=== PATIENT | male | born 1970 | race African-American/Black ===

== ENCOUNTER 2024-06-20 14:38 | Outpatient (OUT) | payer OTHER, SELFPAY ==
--- NOTE | 2024-06-20 14:40 | ECG_ITS ---
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
--- NOTE | 2024-06-20 15:03 | P.GSHP_ITS ---
History of Present Illness History of Present Illness Chief complaint: phimosis Narrative: Patient presents for presurgical testing accompanied by his partner. The patient reports a several month history of phimosis. He denies urinary complaints at this time. Review of Systems ROS Narrative REVIEW OF SYSTEMS: Negative except as stated in HPI, ten or more systems reviewed. 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 - Other specified disorders of the skin and subcutaneous tissue (ICD-1 0) Syphilis ?A53.9 - Syphilis, unspecified (ICD-10) Chronic renal disease ?N18.9 - Chronic kidney disease, unspecified (ICD-10) Phimosis ?N47.1 - Phimosis (ICD-10) Surgical History (Updated 06/20/24 @ 13:59 by Monae Rausch NP) H/O colonoscopy ?Z98.890 - Other specified postprocedural states (ICD-10) Family History (Updated 06/20/24 @ 14:52 by Monae Rausch NP) Other Family history of breast cancer Family history of hypertension Social History (Updated 06/20/24 @ 14:50 by Monae Rausch NP) Within the past year, how often did you have a drink containing alcohol: 2-3 times a week Smoking status: Never smoker Non-prescribed substance use: cannabis (any form) Previous occupational history: [employer] Highest level of school completed/degree received: high school graduate Meds Home Medications and Allergies Home Medications ?Medication ?Instructions ?Recorded ?Confirmed ?Type dupilumab 300 mg/2 mL subcutaneous 300 mg subcut .[id number] 06/20/24 06/20/24 History pen injector (Dupixent) triamcinolone acetonide 0.1 % 1 applic topical BID 06/20/24 06/20/24 History topical cream Allergies Allergy/AdvReac Type Severity Reaction Status Date / Time amoxicillin Allergy Rash Verified 06/20/24 14:47 Exam Narrative Exam Narrative: Constitutional: Awake, alert, comfortable, well-appearing, nontoxic, interactive, vital signs as charted Head: Normocephalic, atraumatic Neck: Supple, normal appearance, normal range of motion, no meningeal signs, no lymphadenopathy Respiratory: No respiratory distress, breath sounds clear Cardiovascular: Regular rate and rhythm, strong and regular heart tones Abdomen: Nontender, normal bowel sounds, soft, no CVA tenderness Musculoskeletal: Normal gait, no swelling or edema Skin: No rashes or induration, no lesions, only visible skin inspected Neuro: No neurological deficits, normal sensation Psychiatric: Oriented ?3, normal affect Assessment and Plan Assessment and Plan (1) Phimosis: Plan Circumcision scheduled with Dr. Melgoza July 05, 2024.
[2024-06-20 15:09] LABS: Basophils Absolute Auto 0.1 10^3/uL (0.0-0.1); Basophils Percent Auto 1.2 % (0.2-2.0); Eosinophils Absolute Auto 0.2 10^3/uL (0.0-0.7); Eosinophils Percent Auto 3.2 % (0.9-7.0); Hematocrit 39.7 % (42.0-54.0); Hemoglobin 13.4 g/dL (14.0-18.0); Immature Granulocytes Abs Auto 0.02 10^3/uL (0.00-0.03); Immature Granulocytes Pct Auto 0.3 % (0.0-0.5); Lymphocytes Absolute Auto 3.3 10^3/uL (1.2-3.8); Lymphocytes Percent Auto 46.8 % (20.5-60.0); Mean Corpuscular HGB Conc 33.8 g/dL (29.9-35.2); Mean Corpuscular Hemoglobin 31.8 pg (25.9-34.0); Mean Corpuscular Volume 94.3 fL (80.0-94.0); Mean Platelet Volume 8.6 fL (9.5-13.5); Monocytes Absolute Auto 0.8 10^3/uL (0.3-0.8); Neutrophils Absolute Auto 2.5 10^3/uL (1.4-6.5); Neutrophils Percent Auto 36.5 % (43.0-75.0); Platelet Count 323 10^3/uL (150-450); Red Blood Count 4.21 10^6/uL (4.70-6.10); Red Cell Distribution Width 12.8 % (11.0-15.0); White Blood Count 6.9 10^3/uL (4.0-11.0)
[2024-06-20 15:20] LABS: Anion Gap 8.6; Calcium 9.4 mg/dL (8.5-10.1); Carbon Dioxide 29.5 mmol/L (21.0-32.0); Chloride 106 mmol/L (98-107); Estimated GFR (African America 50 (>=60 mL/min/1.73m^2); Estimated GFR (Non-African Ame 41 (>=60 mL/min/1.73m^2); Glucose 91 mg/dL (74-106); Potassium 4.1 mmol/L (3.5-5.1); Sodium 140 mmol/L (136-145)
[2024-06-20 15:34] LABS: INR 0.97; Partial Thromboplastin Time 28.5 sec (22.3-36.2); Prothrombin Time 10.3 sec (9.0-11.6)
== END 2024-06-20 14:39 | disposition home or self-care (01) ==
LOC: PST 14:38
PROVIDERS: Visit Provider Urology
DX: Z01.810 Encounter for preprocedural cardiovascular examination (principal); Z01.812 Encounter for preprocedural laboratory examination; Z01.818 Encounter for other preprocedural examination; N47.1 Phimosis
CPT/HCPCS: 80048; 85025; 85610; 85730; 93005; G0463

== ENCOUNTER 2024-07-05 10:28 | Day surgery (SDC) | payer OTHER, SELFPAY ==
[2024-06-20 15:00] VITALS: BP 128/70; PULSE 66; TEMP 36.3; O2SAT 96; BMI 29.9
[2024-07-05] VITALS (20 sets, daily range): BP systolic 115–149; BP diastolic 66–92; PULSE 73–97; TEMP 36.2–36.3; O2SAT 94–100
--- OUTSIDE RECORDS SUMMARY | 2024-07-05 10:38 | XMS_ITS | CCD ---
Author Organization [facility] Care Team Providers Care Head Of Stock Name Role Phone Cori Loera Primary Care Provider Tashi Cardoso Attending Unavailable Dilma BENAVIDEZ Primary Care Physician [phone] Margie Cori Prieto Primary Care Provider [phone] Margie Cori Prieto Primary Care Provider [phone] DILMA BENAVIDEZ Referring Unavailable MARGIE CORI Prieto Primary Care Unavailable KAMADANA, JOANNE Attending Unavailable KAMADANA, JOANNE Referring Unavailable MARGIE CORI Prieto Primary Care Unavailable KAMADANA, JOANNE Attending Unavailable KAMADANA, JOANNE Referring Unavailable MARGIE, CORI Prieto Primary Care Unavailable Dilma BENAVIDEZ Primary Care Physician Khurram MELGOZA Attending Unavailable Jensen Campos Attending Unavailable Khurram MELGOZA Attending Unavailable Lashawn Owens Attending Unavailable Dilma BENAVIDEZ Attending Unavailable Khurram MELGOZA Attending Unavailable Khurram MELGOZA Attending Unavailable Unavailable Primary Care Provider UnavailVIDHI Lara Attending Unavailable DILMA BENAVIDEZ Referring Unavailable VIDHI ARAUJO Attending Unavailable VIDHI ARAUJO Attending Unavailable TOM MONTALVO Attending Unavailable VIDHI ARAUJO A Attending Unavailable VIDHI ARAUJO Attending Unavailable Allergies Allergy Classification Reported Allergen(s) Allergy Type Date of Onset Reaction(s) Facility (2 sources) No Known Medication Allergies; Translations: [No Known Medication Allergies] Propensity to adverse reactions (disorder) [facility] Repository (8 sources) Amoxicillin; Translations: [amoxicillin] Drug Allergy 4 Eruption of skin (disorder), Rash [facility] Medications Current Medications Medication Drug Class(es) Dates Sig (Normalized) Sig (Original) doxycycline monohydrate 100 mg oral capsule (3 sources) Tetracycline-clas s Drug Start: 09-12-2023 take 1 capsule by mouth twice daily doxycycline (Monodox) 100 MG capsule Indications: Impetigo Take 1 capsule, by mouth bid, x 10 days 20 capsule 09/12/2023 Active 2 ml dupilumab 150 mg/ml auto-injector (7 sources) Interleukin-4 Receptor alpha Antagonist Start: 11-21-2023 Dupixent Pre-filled Pen 300 mg/2 mL subcutaneous solution Refills(s) 0 Start Date: 11/21/23 Status: Ordered Start: 09-20-2023 Dupixent 300 M G/2ML injection Indications: Atopic Dermatitis Inject 300 mg (contents of ONE pen) under the skin every 2 weeks 2 pen 11 01/09/2024 Active levoFLOXacin 500 mg oral tablet (2 sources) Quinolone Antimicrobial Start: 07-06-2022 End: 07-16-2022 take 1 tablet by mouth every twenty-four hours levofloxacin 500 mg Tab 500 mg = 1 tab(s), Oral, q24hr, X 10 day(s), # 10 tab(s), Refills(s) 0, Pharmacy: [facility] #[id number], 185, cm, 07/06/22 17:44:00 EST, Height/Length Dosing, 90.3, kg, 07/06/22 17:44:00 EST, Weight Dosing Start Date: 07/06/22 Stop Date: 07/16/22 Status: Ordered magnesium sulfate 225 MG / potassium chloride 188 MG / sodium sulfate 1479 MG Oral Tablet [Sutab] (1 source) Start: 01-10-2023 take 1 tablet by mouth once Sutab oral tablet See Instructions, 1 EA, Refill(s) 0, Please follow instructions per packaging and physician's handout, [facility], 180, cm, 01/10/23 15:30:00 EDT, Height/Length Dosing, 97.8, kg, 01/10/23 15:30:00 EDT, Weight Dosing Start Date: 01/10/23 Status: Ordered methylPREDNISolone 4 mg oral tablet (1 source) Corticosteroid Start: 07-27-2023 End: 08-02-2023 Medrol 4 mg Tab = 1 packet(s), Oral, As Directed, as directed on package labeling, X 6 day(s), # 21 tab(s), Refills(s) 0, Pharmacy: [facility] #[id number], 180, cm, 07/27/23 19:43:00 EST, Height/Length Dosing, 97.1, kg, 07/27/23 19:43:00 EST, Weight Dosing Start Date: 07/27/23 Stop Date: 08/02/23 Status: Ordered mupirocin 0.02 mg/mg topical ointment (2 sources) RNA Synthetase Inhibitor Antibacterial Start: 07-26-2023 End: 08-02-2023 mupirocin Top 2% Oint 1 montez, Topical, BID for 7 day(s), 15 gm, Refill(s) 0, [facility] #[id number], 180, cm, 07/26/23 14:11:00 EST, Height/Length Dosing, 97.1, kg, 07/26/23 14:11:00 EST, Weight Dosing Start Date: 07/26/23 Stop Date: 08/02/23 Status: Ordered predniSONE 20 mg oral tablet (1 source) Start: 08-08-2023 predniSONE 20 mg Tab See Instructions, 2 tabs daily x 10 days, then 1 tab daily x 10 days with food or milk, # 30 tab(s), Refills(s) 0, Pharmacy: [facility] #[id number], 180, cm, 08/08/23 16:35:00 EST, Height/Length Dosing, 98.4, kg, 08/08/23 16:35:00 EST, Weight Dosing Start Date: 08/08/23 Status: Ordered tacrolimus 0.001 mg/mg topical ointment (3 sources) Calcineurin Inhibitor Immunosuppressant Start: 09-12-2023 tacrolimus (Protopic) 0.1 % ointment Indications: Other atopic dermatitis Apply to affected areas, twice a day when flared, 30 day supply 30 g 3 09/12/2023 Active terbinafine 250 mg oral tablet (2 sources) Allylamine Antifungal Start: 07-06-2022 take 1 tablet by mouth once daily terbinafine 250 mg Tab 250 mg = 1 tab(s), Oral, Daily, Refills(s) 0 Start Date: 07/06/22 Status: Ordered triamcinolone acetonide 1 mg/ml topical cream (10 sources) Corticosteroid Start: 09-02-2023 triamcinolone (Kenalog) 0.1 % cream Indications: Other atopic dermatitis Apply to affected areas, up to twice a day when flared, do not use one the face, groin, or underarms, 30 day supply 454 g 11 01/09/2024 Active Start: 08-08-2023 triamcinolone Top 0.1% Crm 15 gram 1 montez, Topical, BID, 60 gram, Refill(s) 1, [facility] #[id number], 180, cm, 08/08/23 16:35:00 EST, Height/Length Dosing, 98.4, kg, 08/08/23 16:35:00 EST, Weight Dosing Start Date: 08/08/23 Status: Ordered Start: 07-26-2023 triamcinolone Top 0.1% Crm 15 gram 1 montez, Topical, TID, 60 gram, Refill(s) 0, [facility] #[id number], 180, cm, 07/26/23 14:11:00 EST, Height/Length Dosing, 97.1, kg, 07/26/23 14:11:00 EST, Weight Dosing Start Date: 07/26/23 Status: Ordered Problems Active Problems Problem Classification Problem Date Documented Date Episodic/Chronic Allergic reactions (2 sources) Atopic dermatitis; Translations: [Other atopic dermatitis] 05-10-2024 Chronic Allergic reactions (2 sources) Vesicular eczema 08-08-2023 Episodic Chronic kidney disease (19 sources) Chronic kidney disease stage 3A ; Translations: [Chronic kidney disease, stage 3a] Onset: 07-04-2022 Chronic Chronic kidney disease (3 sources) Chronic kidney disease; Translations: [Chronic kidney disease, stage 3a] Onset: 01-20-2023 Mycoses (16 sources) Tinea pedis; Translations: [Tinea pedis] Onset: 07-04-2022 Episodic Other infections; including parasitic (1 source) H/O: infectious disease; Translations: [Personal history of other infectious and parasitic diseases] Onset: 11-17-2022 Episodic Other infections; including parasitic (8 sources) History of syphilis 11-17-2022 Episodic Other inflammatory condition of skin (10 sources) 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 Other male genital disorders (4 sources) Congenital phimosis 05-23-2023 Episodic Other male genital disorders (2 sources) Phimosis; Translations: [Phimosis] Onset: 11-21-2023 Episodic Other nutritional; endocrine; and metabolic disorders (1 source) Obese class I; Translations: [Body mass index (BMI) 30.0-30.9, adult] Onset: 08-08-2023 Chronic Other nutritional; endocrine; and metabolic disorders (1 source) Obesity; Translations: [Other obesity due to excess calories] Onset: 08-08-2023 Chronic Other nutritional; endocrine; and metabolic disorders (2 sources) Body mass index 30+ - obesity 08-08-2023 Chronic Other nutritional; endocrine; and metabolic disorders (2 sources) Obesity caused by energy imbalance 08-08-2023 Chronic Other nutritional; endocrine; and metabolic disorders (18 sources) Overweight; Translations: [Overweight] Onset: 07-04-2022 Episodic Other nutritional; endocrine; and metabolic disorders (16 sources) Overweight in adulthood with body mass index of 25 or more but less than 30; Translations: [Body mass index (BMI) 26.0-26.9, adult] Onset: 07-06-2022 Episodic Other screening for suspected conditions (not mental disorders or infectious disease) (4 sources) Screening for malignant neoplasm of colon done; Translations: [Encounter for screening for malignant neoplasm of colon] Onset: 11-17-2022 Episodic Other skin disorders (4 sources) Disorder of skin; Translations: [Other specified disorders of the skin and subcutaneous tissue] Onset: 07-23-2022 Episodic Other skin disorders (1 source) Callosity; Translations: [Corns and callosities] Onset: 11-19-2022 Episodic Other skin disorders (8 sources) Elba of toe 11-19-2022 Episodic Other skin disorders (2 sources) Podopompholyx; Translations: [Dyshidrosis [pompholyx]] Onset: 07-26-2023 Episodic Other skin disorders (2 sources) Eruption; Translations: [Rash and other nonspecific skin eruption] Onset: 07-27-2023 Episodic Sexually transmitted infections (not HIV or hepatitis) (2 sources) Latent early syphilis; 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 Unclassified (16 sources) Patient encounter status 11-17-2022 Past or Other Problems Problem Classification Problem Date Documented Date Episodic/Chronic Anal and rectal conditions (6 sources) Anal fissure; Translations: [Anal fissure, unspecified] Onset: 11-19-2022 Episodic Immunizations and screening for infectious disease (6 sources) Exposure to sexually transmissible disorder; Translations: [Contact with and (suspected) exposure to infections with a predominantly sexual mode of transmission] Onset: 07-23-2022 Episodic Results Test Name Value Interpretation Reference Range Facil ity Consent for Procedure/Surger yon 11-22-2023 Consent for Procedure/Surgery [id number] CF#1.00TIFF [facility] Formson 11-22-2023 Forms [id number] 9C#1.00TIFF Normal [facility] Screenson 11-22-2023 Screens [id number] 71#1.00TIFF [facility] Ambulatory Visit Summaryon 0 11-21-2023 Ambulatory Visit Summary GABRIELA FUENTES :1970 Visit Date:11/21/2023 Ambulatory Visit Instructions Your Diagnosis Phimosis Prostate cancer screening Your Care Team Attending Physician - Khurram MELGOZA MD Primary Care Physician - Dilma BENAVIDEZ MD This Is Your Medications List Contact prescribing physician if questions or concerns dupilumab (Dupixent Pre-filled Pen 300 mg/2 mL subcutaneous solution) triamcinolone topical (triamcinolone Top 0.1% Crm 15 gram) Procedures Performed Colonoscopy (02/25/2023). Discharge Vitals Heart Rate (Peripheral) 64 Respiratory Rate 16 Blood Pressure 132/76 Height 183 cm Height 72 in Weight 97.8 kg Weight 215.16 lb BMI 29.2 What to do next You Need to Schedule the Following Appointments Follow Up with DENIZ DODSON, Khurram Adams, URL When: Where: [facility] [address] [place] [phone]- [phone] Medications What How Much When Instructions Unchanged dupilumab (Dupixent Pre-filled Pen 300 mg/ 2 mL subcutaneous solution) Contact prescribing physician if questions or concerns Unchanged triamcinolone topical (triamcinolone Top 0.1% Crm 15 gram) 1 Application Topical 2 times a day Contact prescribing physician if questions or concerns Allergies amoxicillin (Rash) Problems Ongoing - Any problem that you are currently receiving treatment for. 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 Overweight Patient Survey You may receive a survey via text or e-mail asking about your office visit. Please share your experience with us by completing your survey. We appreciate your feedback and thank you for choosing us for your care. Education Materials Circumcision Information Male infants are born with a fold of skin that covers the head of the penis (foreskin). This fold of skin is often removed shortly after with a surgery that is called circumcision. A circumcision may be done by a health care provider who is involved in care or by a specialist who cares for the urinary tract (urologist). Circumcisions may also be done in non-medical settings for rastafarian or cultural reasons. Who should be circumcised? The decision to leave the foreskin on or to have it removed is a personal one. It is often based on rastafarian, social, or cultural beliefs. Circumcision is most often done in the first few days of life, but it may also be done later in life. In general: ? All healthy boys with a normal penis formation can be circumcised in the first few days after . ? Boys who are born early (prematurely) or who are ill should not be circumcised until they are older and stronger. ? Boys with certain deformities of the penis or deformities of the opening of the penis (urethra) should not be circumcised. How is circumcision done? ? The penis and the area around it are cleansed well. ? An injection may be given to numb the area. A numbing cream may be applied to the area. ? A special clamp or ring is attached to the penis and used to remove the foreskin. ? The area is then cleansed well again. ? Medicine and gauze are applied to it. What are the benefits of circumcision? When the foreskin is removed: ? The head of the penis is easier to wash. This lowers the risk for odors, swelling, and infection. ? Some men are less likely to: ? Carry the virus that causes genital warts (human papillomavirus or HPV). ? Contract human immunodeficiency virus (HIV). ? Develop cancer of the penis. ? Get urinary infections. ? Develop inflammation of the penis. What are the risks of circumcision? Circumcision is a safe procedure. However, problems may occur, including: ? Infection. ? Bleeding. ? Removal of too much or too little foreskin. This affects the appearance of the penis. ? Irritation and narrowing of the urinary opening. This is usually short term. ? Scarring of the penis. This may affect the way the penis functions. Where to find more information ? [employer] ([employer]), Male Circumcision: [email or web address].org Summary ? Male infants are born with a fold of skin that covers the head of the penis. This fold of skin is often removed shortly after with a surgery that is called circumcision. ? When the foreskin is removed, the head of the penis is easier to wash and keep clean. ? Some men who are circumcised are less likely to carry viruses, get urinary infections, or develop cancer of the penis. ? Circumcision is a safe procedure. However, (more content not included)... Normal [facility] Patient Educationon 11-21-19 Patient Education Urology Circumcision Information Male infants are born with a fold of skin that covers the head of the penis (foreskin). This fold of skin is often removed shortly after with a surgery that is called circumcision. A circumcision may be done by a health care provider who is involved in care or by a specialist who cares for the urinary tract (urologist). Circumcisions may also be done in non-medical settings for rastafarian or cultural reasons. Who should be circumcised? The decision to leave the foreskin on or to have it removed is a personal one. It is often based on rastafarian, social, or cultural beliefs. Circumcision is most often done in the first few days of life, but it may also be done later in life. In general: ? All healthy boys with a normal penis formation can be circumcised in the first few days after . ? Boys who are born early (prematurely) or who are ill should not be circumcised until they are older and stronger. ? Boys with certain deformities of the penis or deformities of the opening of the penis (urethra) should not be circumcised. How is circumcision done? ? The penis and the area around it are cleansed well. ? An injection may be given to numb the area. A numbing cream may be applied to the area. ? A special clamp or ring is attached to the penis and used to remove the foreskin. ? The area is then cleansed well again. ? Medicine and gauze are applied to it. What are the benefits of circumcision? When the foreskin is removed: ? The head of the penis is easier to wash. This lowers the risk for odors, swelling, and infection. ? Some men are less likely to: ? Carry the virus that causes genital warts (human papillomavirus or HPV). ? Contract human immunodeficiency virus (HIV). ? Develop cancer of the penis. ? Get urinary infections. ? Develop inflammation of the penis. What are the risks of circumcision? Circumcision is a safe procedure. However, problems may occur, including: ? Infection. ? Bleeding. ? Removal of too much or too little foreskin. This affects the appearance of the penis. ? Irritation and narrowing of the urinary opening. This is usually short term. ? Scarring of the penis. This may affect the way the penis functions. Where to find more information ? [employer] ([employer]OG), [place] Male Circumcision: [email or web address].org Summary ? Male infants are born with a fold of skin that covers the head of the penis. This fold of skin is often removed shortly after with a surgery that is called circumcision. ? When the foreskin is removed, the head of the penis is easier to wash and keep clean. ? Some men who are circumcised are less likely to carry viruses, get urinary infections, or develop cancer of the penis. ? Circumcision is a safe procedure. However, problems may occur, including infection, bleeding, scarring, and irritation and narrowing of the opening of the penis. This information is not intended to replace advice given to you by your health care provider. Make sure you discuss any questions you have with your health care provider. Document Revised: 07/05/2022 Document Reviewed: 07/05/2022 [employer] Patient Education ? 2022 [email or web address] Normal [facility] Consultation Noteon 09-02-19 24 Consultation Note [id number] 35#1.00TIFF Normal [facility] Physician Referralon 024 Physician Referral [id number] 126#1.00TIFF [facility] Ambulatory Visit Summaryon 0 08-08-2023 Ambulatory Visit Summary GABRIELA FUENTES :1970 Visit Date:08/08/2023 Ambulatory Visit Instructions Your Diagnosis Papulosquamous dermatosis Dyshidrotic eczema Chronic renal impairment, stage 3a Class 1 obesity due to excess calories in adult BMI 30.0-30.9,adult Your Care Team Attending Physician - Dilma BENAVIDEZ MD Primary Care Physician - Dilma BENAVIDEZ MD This Is Your Medications List predniSONE (predniSONE 20 mg Tab) triamcinolone topical (triamcinolone Top 0.1% Crm 15 gram) Procedures Performed Colonoscopy (02/25/2023). Discharge Vitals Heart Rate (Peripheral) 83 Respiratory Rate 16 Blood Pressure 134/84 Height 180 cm Height 71 in Weight 98.4 kg Weight 216.48 lb BMI 30.37 What to do next Scheduled Follow-Up Appointments Tuesday 11:00 AM EDT With: DENIZ DODSON, Khurram Adams Where: [facility] Normal Dyshidrotic eczema\.br\ Medications\.br\ What How Much When Instructions\.br \ New predniSONE (predniSONE 20 mg Tab) See instructions 2 tabs daily x 10 days, then 1 tab daily x 10 days with food or milk Pickup at [facility] #[id number]\.br\ Changed triamcinolone topical (triamcinolone Top 0.1% Crm 15 gram) 1 Application Topical 2 times a day Pickup at [facility] #[id number]\.br\ Pharmacy Information\.br\ [id number]: [address] [id number] [phone]\.br\ Medications and Immunizations Administered\.br \ Not Given\.br\ influenza virus vaccine, inactivated, Postpone due to refusal\.br\ Allergies\.br\ amoxicillin (Rash)\.br\ Problems\.br\ Ongoing - Any problem that you are currently receiving treatment for.\.br\ BMI 30.0-30.9,adult\ .br\ Chronic renal impairment, stage 3a\.br\ Class 1 obesity due to excess calories in adult\.br\ Colon cancer screening\.br\ Congenital phimosis of penis\.br\ Elba of toe\.br\ Dyshidrotic eczema\.br\ History of syphilis\.br\ Papulosquamous dermatosis\.br\ Prostate cancer screening\.br\ Smoker\.br\ Tinea pedis of right foot\.br\ Historical - Any problem that you are no longer receiving treatment for.\.br\ Overweight\.br\ Patient Survey\.br\ You may receive a survey via text or e-mail asking about your office visit. Please share your experience with us by completing your survey. We appreciate your feedback and thank you for choosing us for your care.\.br\ Education Materials\.br\ Atopic Dermatitis\.br\ Atopic dermatitis is a skin disorder that causes inflammation of the skin. It is marked by a red rash and itchy, dry, scaly skin. It is the most common type of eczema. Eczema is a group of skin conditions that cause the skin to become rough and swollen. This condition is generally worse during the cooler winter months and often improves during the warm summer months.\.br\ Atopic dermatitis usually starts showing signs in infancy and can last through adulthood. This condition cannot be passed from one person to another (is not contagious). Atopic dermatitis may not always be present, but when it is, it is called a flare-up.\.br\ What are the causes?\.br\ The exact cause of this condition is not known. Flare-ups may be triggered by:\.br\ ? \.br\ Coming in contact with something that you are sensitive or allergic to (allergen).\.br\ ? \.br\ Stress.\.br\ ? \.br\ Certain foods.\.br\ ? \.br\ Extremely hot or cold weather.\.br\ ? \.br\ Harsh chemicals and soaps.\.br\ ? \.br\ Dry air.\.br\ ? \.br\ Chlorine.\.br\ What increases the risk?\.br\ This condition is more likely to develop in people who have a personal or family history of:\.br\ ? \.br\ Eczema.\.br\ ? \.br\ Allergies.\.br\ ? \.br\ Asthma.\.br\ ? \.br\ Hay fever.\.br\ What are the signs or symptoms?\.br\ \.br\ Symptoms of this condition include:\.br\ ? \.br\ Dry, scaly skin.\.br\ ? \.br\ Red, itchy rash.\.br\ ? \.br\ Itchiness, which can be severe. This may occur before the skin rash. This can make sleeping difficult.\.br\ ? \.br\ Skin thickening and cracking that can occur over time.\.br\ How is this diagnosed?\.br\ This condition is diagnosed based on:\.br\ ? \.br\ Your symptoms.\.br\ ? \.br\ Your medical history.\.br\ ? \.br\ A physical exam.\.br\ How is this treated?\.br\ There is no cure for this condition, but symptoms can usually be controlled. Treatment focuses on:\.br\ ? \.br\ Controlling the itchiness and scratching. You may be given medicines, such as antihistamines or steroid creams.\.br\ ? \.br\ Limiting exposure to allergens.\.br\ ? \.br\ Recognizing situations that cause stress and developing a plan to manage stress.\.br\ If your atopic dermatitis does not get better with medicines, or if it is all over your body (widespread), a treatment using a specific type of light (phototherapy) may be used.\.br\ Follow these instructions at home:\.br\ Skin care\.br\ \.br\ ? \.br\ Keep your skin well moisturized. Doing this seals in moisture and helps to prevent dryness.\.br\ ? \.br\ Use unscented lotions that have petroleum in them.\.br\ ? \.br\ Avoid lotions that contain alcohol or water. They can dry the skin.\.br\ ? \.br\ Keep baths or showers short (less than 5 minutes) in warm water. Do not use hot water.\.br\ ? \.br\ Use mild, unscented cleansers for bathing. Avoid soap and bubble bath.\.br\ ? \.br\ Apply a moisturizer to your skin right after a bath or shower.\.br\ ? \.br\ Do not apply anything to your skin without checking with your health care provider.\.br\ General instructions\.br \ ? \.br\ Take or apply [id number] and prescription medicines only as told by your health care provider.\.br\ ? \.br\ Dress in clothes made of cotton or cotton blends. Dress lightly because heat increases itchiness.\.br\ ? \.br\ When washing your clothes, rinse your clothes twice so all of the soap is removed.\.br\ ? \.br\ Avoid any triggers that can cause a flare-up.\.br\ ? \.br\ Keep your fingernails cut short.\.br\ ? \.br\ Avoid scratching. Scratching makes the rash and itchiness worse. A break in the skin from scratching could result in a skin infection (impetigo).\.br\ ? \.br\ Do not be around people who have cold sores or fever blisters. If you get the infection, it may cause your atopic dermatitis to worsen.\.br\ ? \.br\ Keep all follow-up visits. This is important.\.br\ Contact a health care provider if:\.br\ ? \.br\ Your itchiness interferes with sleep.\.br\ ? \.br\ Your rash gets worse or is not better within one week of starting treatment.\.br\ ? \.br\ You have a fever.\.br\ ? \.br\ You have a rash flare-up after having contact with someone who has cold sores or fever blisters.\.br\ Get help right away if:\.br\ ? \.br\ You develop pus or soft yellow scabs in the rash area.\.br\ Summary\.br\ ? \.br\ Atopic dermatitis causes a red rash and itchy, dry, scaly skin.\.br\ ? \.br\ Treatment focuses on controlling the itchiness and scratching, limiting exposure to things that you are sensitive or allergic to (allergens), recognizing situations that cause stress, and developing a plan to manage stress.\.br\ ? \.br\ Keep your skin well moisturized.\.br \ ? \.br\ Keep baths or showers shorter than 5 minutes and use warm water. Do not use hot water.\.br\ This information is not intended to replace advice given to you by your health care provider. Make sure you discuss any questions you have with your health care provider.\.br\ Document Revised: 04/13/2021 Document Reviewed: 04/13/2021 [email or web address] Patient Education ? 2022 [email or web address].br\ \.br\ [facility] Family Medicine Office/Clini c Noteon 08-08-2023 Family Medicine Office/Clinic Note Chief Complaint pt presents today with SO cont c/o painful raised blisters on bilat hand, swelling of hands, treated recently with a course of steroids, needs tetanus History of Present Illness The patient is a 52-year-old male patient here for complaints of rash. He is accompanied by his significant other. Had recently been seen in the office for suspected severe dyshidrotic eczema. He was then seen in the emergency room after having an initial improvement and was found to have persistent rash and even worsening full body eczematous type change. Hands are burning despite completion of prednisone. Did review the ER reports. Repeat syphilis testing because of history of this and RPR is negative as expected. Had previously been treated appropriately in the distant past. His feet were bothering him when he was seen a year ago. He was placed on steroid pack by Lashawn, which improved his symptoms. His hands were healing until the last pill on Tuesday. He took the last pill on Tuesday, and his rash started coming on yesterday. He denies any itching, but the blisters feel like his hands are on fire. He has bumps all over his body. He wears different kinds of gloves at work. The gloves are made of rubber and polyethylene. The material on the back and rubber touch in the palm are skin . He denies any burning on the dorsum.. He has not seen a audio specialist before. He is not in any type of chemicals at work. His gloves do not get wet from anything, but he sweats. His whole back broke out in bumps since use of prednisone.. He did not have bad acne as a child. Patient had fairly persistent renal insufficiency and was sent for consultation last spring. Found to be stage IIIa and they recommended a follow-up 1 year he has not scheduled that yet. Review of Systems PHQ Score Initial Depression Screen Score: 2 SCORE See HPI otherwise negative Physical Exam Vitals & Measurements HR: 83(Peripheral) RR: 16 BP: 134/84 SpO2: 96% HT: 71 in HT: 180 cm WT: 98.4 kg WT: 216.48 lb BMI: 30.37 He is well developed, in no acute distress, well hydrated. His oropharynx is pink and moist. Adequate [place] dentition. No visible lesions. Conjunctivae clear. No scleral icterus. Without adenopathy. Auscultation of lungs clear bilaterally. Regular rate and rhythm. No murmur, gallop, or rub. Abdomen: Overweight, nontender. Hyperactive bowel sounds without organomegaly. Well-developed. His integument is black skin tones. He does have acne-like lesions covering the majority of the trunk in a very broad distribution. No significant pustules or signs of secondary infection. His hands shows significant papulosquamous pustules and tenderness all over the palmar surfaces including the sides of the finger. The dorsum of the hands are very dry, eczematous. Cooperative. 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 Certainly appears to be dyshidrotic eczema which I think may require a systemic medication such as Dupixent. I have made a dermatology referral asking that in the meantime they utilize triamcinolone topically twice daily and will use prednisone over a 20-day course in hopes of improving his overall rash better. Understands side effects with the steroids include reflux, elevated blood pressure insomnia. Ordered: [facility] External Ambulatory Referral 2. Dyshidrotic eczema (L30.1: Dyshidrosis [pompholyx]) Some concern that the prednisone caused almost an acneform rash on the trunk. Unfortunately will give 1 more round of prednisone in hopes of settling down the rash on the hands but understands this may worsen the overall rash on the trunk. Ordered: [facility] External Ambulatory Referral 3. Chronic renal impairment, stage 3a (N18.31: Chronic kidney disease, stage 3a) Very important maintain fluid hydration avoid nephrotoxic substances and suggest that they really connect with nephrology for spring follow-up. Phone number and consultative letter provided to his significant other and they will make the call 4. Class 1 obesity due to excess calories in adult (E66.09: Other obesity due to excess calories) The standard range for ages 18 and older is >=18.5 and < 25 kg/m2. Your BMI today was above this range, this falls in the overweight to obese category and there are medical benefits to weight loss. We can offer counselling, referral, and/or medical support in addressing this problem. Your BMI and weight management will be followed at subsequent visits. 5. BMI 30.0-30.9,adult (Z68.30: Body mass index [BMI] 30.0-30.9, adult) See #4 Orders: predniSONE, See Instructions, 2 tabs daily x 10 days, then 1 tab daily x 10 days with food or milk, # 30 tab(s), Refills(s) 0, Pharmacy: [id number], 180, cm, 08/08/23 16:35:00 EST, Height/Length Dosing, 98.4, kg, 08/08/23 16:35:00 EST, Weight Dosing triamcinolone topical, 1 montez, Topical, BID, 60 gram, Refill(s) 1 (more content not included)... Normal [facility] Comment on above: Result Comment: Elec tronically Signed By: BETO DODSON, Dilma\.dennise\Date and Time Signed: 08/08/23 18:13 EST Patient Educationon 08-08-19 Patient Education Immunology Atopic Dermatitis Atopic dermatitis is a skin disorder that causes inflammation of the skin. It is marked by a red rash and itchy, dry, scaly skin. It is the most common type of eczema. Eczema is a group of skin conditions that cause the skin to become rough and swollen. This condition is generally worse during the cooler winter months and often improves during the warm summer months. Atopic dermatitis usually starts showing signs in infancy and can last through adulthood. This condition cannot be passed from one person to another (is not contagious). Atopic dermatitis may not always be present, but when it is, it is called a flare-up. What are the causes? The exact cause of this condition is not known. Flare-ups may be triggered by: ? Coming in contact with something that you are sensitive or allergic to (allergen). ? Stress. ? Certain foods. ? Extremely hot or cold weather. ? Harsh chemicals and soaps. ? Dry air. ? Chlorine. What increases the risk? This condition is more likely to develop in people who have a personal or family history of: ? Eczema. ? Allergies. ? Asthma. ? Hay fever. What are the signs or symptoms? Symptoms of this condition include: ? Dry, scaly skin. ? Red, itchy rash. ? Itchiness, which can be severe. This may occur before the skin rash. This can make sleeping difficult. ? Skin thickening and cracking that can occur over time. How is this diagnosed? This condition is diagnosed based on: ? Your symptoms. ? Your medical history. ? A physical exam. How is this treated? There is no cure for this condition, but symptoms can usually be controlled. Treatment focuses on: ? Controlling the itchiness and scratching. You may be given medicines, such as antihistamines or steroid creams. ? Limiting exposure to allergens. ? Recognizing situations that cause stress and developing a plan to manage stress. If your atopic dermatitis does not get better with medicines, or if it is all over your body (widespread), a treatment using a specific type of light (phototherapy) may be used. Follow these instructions at home: Skin care ? Keep your skin well moisturized. Doing this seals in moisture and helps to prevent dryness. ? Use unscented lotions that have petroleum in them. ? Avoid lotions that contain alcohol or water. They can dry the skin. ? Keep baths or showers short (less than 5 minutes) in warm water. Do not use hot water. ? Use mild, unscented cleansers for bathing. Avoid soap and bubble bath. ? Apply a moisturizer to your skin right after a bath or shower. ? Do not apply anything to your skin without checking with your health care provider. General instructions ? Take or apply ydxq-[id number]-[id number] and prescription medicines only as told by your health care provider. ? Dress in clothes made of cotton or cotton blends. Dress lightly because heat increases itchiness. ? When washing your clothes, rinse your clothes twice so all of the soap is removed. ? Avoid any triggers that can cause a flare-up. ? Keep your fingernails cut short. ? Avoid scratching. Scratching makes the rash and itchiness worse. A break in the skin from scratching could result in a skin infection (impetigo). ? Do not be around people who have cold sores or fever blisters. If you get the infection, it may cause your atopic dermatitis to worsen. ? Keep all follow-up visits. This is important. Contact a health care provider if: ? Your itchiness interferes with sleep. ? Your rash gets worse or is not better within one week of starting treatment. ? You have a fever. ? You have a rash flare-up after having contact with someone who has cold sores or fever blisters. Get help right away if: ? You develop pus or soft yellow scabs in the rash area. Summary ? Atopic dermatitis causes a red rash and itchy, dry, scaly skin. ? Treatment focuses on controlling the itchiness and scratching, limiting exposure to things that you are sensitive or allergic to (allergens), recognizing situations that cause stress, and developing a plan to manage stress. ? Keep your skin well moisturized. ? Keep baths or showers shorter than 5 minutes and use warm water. Do not use hot water. This information is not intended to replace advice given to you by your health care provider. Make sure you discuss any questions you have with your health care provider. Document Revised: 04/13/2021 Document Reviewed: 04/13/2021 [email or web address] Patient Education ? 2022 [email or web address] [facility] Family Medicine Office/Clini c Noteon 07-31-2023 Family Medicine Office/Clinic Note Chief Complaint c/o skin concerns HPI Staff Concerns with Hands being cracked/ swollen Duration: New or Recurrent: new Location: left hand, wrist, bumps up into arm Rash symptoms: pruritic History of Present Illness Gabriela Fuentes is a 52-year-old male here for concerns regarding follow-up for his hands. He is having issues with cracked, swollen skin and is having bumps on arms. The patient contacted the office on 07/20/2023. The patient was started on amoxicillin by Dr. Evelyn Hathaway covering for Dr. Camilo Benavidez in office. The patient notes stopped antibiotic due to concerns regarding small bumps on his arms after taking medication. He notes that the area is pruritic. It is affecting his left hand and wrist. He is accompanied by an adult female. The patient took antibiotics for 2 days and then continued for 3 more days upon developing bumps on his arms. His symptoms have worsened, presenting as itching. He is left-handed and wears gloves daily at work, with the bumps primarily on his wrists. The spots appeared after starting the antibiotics and were not present before. No spots are reported on his feet. Despite applying nystatin cream, the condition seems to have worsened. A similar incident occurred about a year ago, but the current manifestation is more severe, particularly on the wrists and recently on the ears. He is uncertain if the new polyester gloves worn at work are the cause. He denies exposure to harsh chemicals at work and reports the gloves are new. He denies history of eczema or dry, itchy patches during his youth. The affected skin is not sensitive to touch. He went to work yesterday, 07/25/2023, and took the next 3 days off to have it checked out. Patient has no other questions or concerns at this time. Review of Systems PHQ Score Initial Depression Screen Score: 2 SCORE All negative except as noted in the HPI. Physical Exam Vitals & Measurements T: 36.8 ?C(Temporal Artery) HR: 79(Peripheral) RR: 18 BP: 124/60 SpO2: 95% HT: 71 in HT: 180 cm WT: 97.1 kg WT: 213.62 lb BMI: 29.97 General: Overweight male, well hydrated in no acute distress. Lungs: Normal respiratory effort and clear to auscultation Cardio: Regular rate and rhythm, normal S1 and S2, no murmur, no rub Neurologic: Grossly normal Lymph Nodes: No cervical adenopathy, nodes normal Mental Status: Alert and oriented x3. Normal mood and affect Skin: Vesicular eruption of bullae on the fingers and palms of hands visible bilaterally. The left hand has significant open lesion with crusting and yellow drainage, tender to palpation. There is also area on the medial aspect of the left wrist, similar to that on the dorsal aspect of the hand. Signs of pruritus present on bilateral palms and wrists. Minimal tenderness to palpation of the areas. Assessment/Plan 1. Dyshidrotic hand dermatitis (L30.1: Dyshidrosis [pompholyx]) Encouraged patient to make sure to maintain proper moisture barrier for hands. Prescription for topical triamcinolone 0.1% cream sent to local pharmacy. Advised patient to apply 3 times daily especially at night with thick layer followed by moisturizer such as Aquaphor or other healing ointment to the area. Encouraged to try to keep hands dry as possible while at work and use barrier cream while working with gloves on as well as prescription for mupirocin topical ointment sent to local pharmacy as well as there are some areas for concern of possible infection. Advised patient to apply this sparingly to the areas only needed. Advised if no improvement within symptoms over the next 3 to 4 days to contact the office and we will consider oral steroids at that time. 2. BMI 29.0-29.9,adult (Z68.29: Body mass index [BMI] 29.0-29.9, adult) The standard range for ages 18 and older is >=18.5 and < 25 kg/m2. Your BMI today was above this range, this falls in the overweight to obese category and there are medical benefits to weight loss. We can offer counselling, referral, and/or medical support in addressing this problem. Your BMI and weight management will be followed at subsequent visits. 3. Overweight (E66.3: Overweight) See above. Portions of this record may have been created with voice recognition artificial intelligence software, specifically [employer], [employer] and or [employer]. Substitutions may have occurred due to the inherent limitations of voice recognition and artificial intelligence software. Patient verbalized understanding and is agreeable to plan and course of treatment. This documentation was completed by voice-activated device and software. Inaccuracies compared to the original dictation of this provider are possible although this document has been overread and corrected. ATTESTATION: This note has been generated by [employer] and edited by Amaya Lozada, Quality [employer]immer. Follow-up With When Contact Information Lashawn Owens PA-C Only if needed [address] (more content not included)... Normal [facility] Comment on above: Result Comment: Elec tronically Signed By: Lashawn Owens PA-C\.br\Date and Time Signed: 07/31/23 22:51 EST\.br\Electronically Co-Signed By: Amaya Lozada\.br\Date and Time Co-Signed: 07/26/23 18:17 EST RPR with Conf Rfxon 07-29-19 24 Reagin Ab RPR Ql (S) Non-Reactive Invalid Interpretation Code Non Reactive [facility] Comment on above: Result Comment: Perf ormed at: [facility] [address] [id number] PhD Max Vergara Performed By: #### 1 [id number] ####[facility] [id number] [place] [address] Consent for Treatmenton 07-18 Consent for Treatment [id number] 29#1.00TIFF [facility] Discharge Instructionson Discharge Instructions [id number] 26#1.00TIFF [facility] ED Clinical Summaryon 2023 ED Clinical Summary [place] [id number] ED Clinical Summary Person Information Name: GABRIELA FUENTES/[facility] Age: 52 Years : 1970 Sex: Male Language: Ukrainian PCP: Dilma BENAVIDEZ MD Marital Status: Single Visit Id: Visit Reason: Rash; HAND SWOLLEN Speciality: Acuity: 4 Enc Type: Emergency Med Service: Emergency Arrival: 07/27/2023 19:31:10 Discharge: 07/27/2023 21:28:44 LOS: 000 01:57 Checkin: 07/27/2023 19:31:10 Checkout: 07/27/2023 21:28:44 Dispo Type: Home (Routine DC) EVENTS: Event Name Event Status Request Date/Time Start Date/Time Complete Date/Time Arrive Complete 07/27/2023 19:31:10 07/27/2023 19:31:10 07/27/2023 19:31:10 Document Home Meds Request 07/27/2023 19:31:10 Triage Complete 07/27/2023 19:31:10 07/27/2023 19:43:47 07/27/2023 19:43:47 Registration Complete 07/27/2023 19:34:35 07/27/2023 19:34:35 07/27/2023 19:34:35 Reg Complete Request 07/27/2023 19:34:35 Reg Bed Request Complete 07/27/2023 19:34:35 07/27/2023 19:34:35 07/27/2023 19:34:35 Bed Assign Complete 07/27/2023 19:36:06 07/27/2023 19:36:06 07/27/2023 19:36:06 Dr Exam Complete 07/27/2023 19:36:06 07/27/2023 19:38:31 07/27/2023 19:38:31 RN Exam Complete 07/27/2023 19:36:06 07/27/2023 19:55:58 07/27/2023 19:55:58 Registration Request 07/27/2023 19:38:31 Dr Exam Complete 07/27/2023 19:38:49 07/27/2023 19:38:49 07/27/2023 19:38:49 Pending Labs Collected 07/27/2023 20:07:40 Lab Collected 07/27/2023 20:07:40 Meds Admin Complete 07/27/2023 20:07:40 07/27/2023 20:20:14 Discharge Complete 07/27/2023 21:15:26 07/27/2023 21:28:48 07/27/2023 21:28:48 Transfer Complete 07/27/2023 21:28:48 07/27/2023 21:28:48 07/27/2023 21:28:48 ADDRESS: [address] [place] [address] [address] [place] [id number] PHYS DOC NOTES: MEDICAL INFORMATION: Prescriptions Given: New Medications [id number], [address] [place] [id number], [phone] methylPREDNISolone (Medrol 4 mg Tab) 1 Packets By Mouth As Directed for 6 Days. as directed on package labeling. Refills: 0. PATIENT EDUCATION INFORMATION: Instructions: Syphilis; Rash, Adult, [id number] Follow up: With: Address: When: BETO DODSON, Dilma [address] [place] [address] In 3 days 07/30/2023 DIAGNOSIS: 1:Rash of both hands; 2:Rash of body Normal [facility] ED Note-Physicianon 07-27-19 ED Note-Physician Basic Information Time Seen: Dorothea Dyson DO [place] 07/27/2023 19:38 Chief Complaint Pt presents for rash on L hand/arm and R arm. States started with small rash 6 months ago. Recently tried oral penicillin and rash worsened. Stopped the penicillin and given 2 topical creams. Not getting any better. History of Present Illness Patient is a pleasant 52-year-old male that denies any significant prior history the presents to the ED with significant other for evaluation of rash on his bilateral hands. Patient says that the rash started about 10 months ago on his hands. It has gotten worse recently. He notes that it is now spreading to his feet. He said he called his doctor and last week was given a prescription for amoxicillin because they thought it might be cellulitis. Since he took the amoxicillin he broke out with a rash on his trunk and upper extremities. He stopped taking the penicillin. He called his doctor yesterday and was given a prescription for triamcinolone and Neupro 7 which she has been using. He said it is not getting better. He endorses significant pruritus. Has not taken any medication for chin. Denies any new soaps, detergents, dryer sheets, lotions. Has not recently been traveling. Does admit that he has lesions on his genitals and legs as well. Thinks he may have had syphilis in the past. He is unsure. Does not work with any harsh chemicals. Does not have any oropharyngeal involvement. Denies any chest pain, shortness of breath, heart racing, fever, chills, diarrhea. Denies insect bites. Review of Systems A 10 point review of systems is negative except as noted above. Medical and Surgical History: Reviewed and noted Social history: Lives at home Substance use: Occasional marijuana use Physical Exam Vitals & Measurements T: 36.9 ?C(Oral) HR: 72(Peripheral) RR: 18 BP: 144/81 SpO2: 100% HT: 180 cm WT: 97.1 kg BMI: 29.97 Appearance: Well-developed, nontoxic-appearing, alert and awake. Speaking in complete sentences. Vital signs reviewed, hypertensive otherwise WNL Skin: Multiple macular lesions palms and soles with raised pustular-like lesions on dorsum of both hand. Scattered erythematous pustules bilateral upper extremities, across back and torso Eyes: PERRL. Vision grossly intact. ENT: Buccal mucosa pink and moist without lesions. Hearing grossly normal Respiratory: LCTA b/l with normal bilateral excursion. No wheezes, rhonchi, rales. Cardiovascular: Hypertensive. RRR, no murmurs. 2+ symmetrical radial and dorsalis pedis pulses. Normal cap refill. No LE edema. Chest wall: Normal chest wall appearance and motion. Abdomen/GI: Soft, nontender, nondistended. No guarding, rigidity, rebound tenderness. NABS x4. Neuro: Alert and awake, speech Clear, cranial nerves grossly intact. Extremities: No deformity noted on exam. Patient spontaneously moves all 4 extremities. Medical Decision Making Limitations to history: None Nursing Notes: Reviewed and utilized the nursing notes. Previous records reviewed: Reviewed telephone note from PCP today. Patient called in about rash and was advised to go to the ED. It seems that he was treated yesterday for dyshidrotic eczema. No available provider notes for the visit last week from which he was given amoxicillin MDM: Patient is a 52-year-old male who presents to the ED for evaluation of rash across the hands, trunk, extremities, palms and soles. Rash on his hands does look like dyshidrotic eczema but it is abnormal for the dyshidrotic eczema to be on the upper arms, torso, trunk and soles of feet. This does not appear to be rllx-daiu-gtn-mouth . No concern for [place] spotted fever. It is possible that this is syphilis. I have ordered RPR with reflex confirmatory screen. I was going to prophylactically treat patient with 2,400,000 units IM pen G however he states that he recently took amoxicillin caused a rash and he is concerned he is allergic to penicillins. Up-to-date recommends patient with penicillin allergy that need to be treated for syphilis should undergo allergy testing to see if they truly are allergic to penicillins before being treated with other medications. Patient to be given Benadryl and Solu-Medrol in the ED. Have advised that he can keep using the triamcinolone and mupirocin creams until he gets results from blood tests back today. Have advised that he needs to see his PCP within the 4 to 48 hours. Advised that he should abstain from sexual intercourse until he knows whether he is positive for syphilis. Encouraged using gentle soaps. Advised to return to ER for any new or worsening symptoms. RX Considerations: Discussions with other providers: Appropriate for: Outpatient mgmt Assessment/Plan 1. Rash of both hands, (R21: Rash and other nonspecific skin eruption)Rash of body Ordered: methylPREDNISolone, = 1 packet(s), Oral, As Directed, as directed on package labeling, X 6 day(s), # 21 tab(s), Refills(s) 0, Pharmacy: [facility] #[id number], 180, cm, 07/27/23 19:43:00 EST, He (more content not included)... [facility] Comment on above: Result Comment: Elec tronically Signed By: Deb Foreman PA-C\.br\Date and Time Signed: 07/27/23 21:15 EST\.br\Electronically Co-Signed By: Dorothea Dyson DO\.br\Date and Time Co-Signed: 07/27/23 23:50 EST ED Patient Education Noteon 07-27-2023 ED Patient Education Note Infectious Disease Rash, Adult A rash is a change in the color of your skin. A rash can also change the way your skin feels. There are many different conditions and factors that can cause a rash. Follow these instructions at home: The goal of treatment is to stop the itching and keep the rash from spreading. Watch for any changes in your symptoms. Let your doctor know about them. Follow these instructions to help with your condition: Medicine Take or apply lhqb-jtq-ialfutu and prescription medicines only as told by your doctor. These may include medicines: ? To treat red or swollen skin (corticosteroid creams). ? To treat itching. ? To treat an allergy (oral antihistamines). ? To treat very bad symptoms (oral corticosteroids). Skin care ? Put cool cloths (compresses) on the affected areas. ? Do not scratch or rub your skin. ? Avoid covering the rash. Make sure that the rash is exposed to air as much as possible. Managing itching and discomfort ? Avoid hot showers or baths. These can make itching worse. A cold shower may help. ? Try taking a bath with: ? Epsom salts. You can get these at your local pharmacy or grocery store. Follow the instructions on the package. ? Baking soda. Pour a small amount into the bath as told by your doctor. ? Colloidal oatmeal. You can get this at your local pharmacy or grocery store. Follow the instructions on the package. ? Try putting baking soda paste onto your skin. Stir water into baking soda until it gets like a paste. ? Try putting on a lotion that relieves itchiness (calamine lotion). ? Keep cool and out of the sun. Sweating and being hot can make itching worse. General instructions ? Rest as needed. ? Drink enough fluid to keep your pee (urine) pale yellow. ? Wear loose-fitting clothing. ? Avoid scented soaps, detergents, and perfumes. Use gentle soaps, detergents, perfumes, and other cosmetic products. ? Avoid anything that causes your rash. Keep a journal to help track what causes your rash. Write down: ? What you eat. ? What cosmetic products you use. ? What you drink. ? What you wear. This includes jewelry. ? Keep all follow-up visits as told by your doctor. This is important. Contact a doctor if: ? You sweat at night. ? You lose weight. ? You pee (urinate) more than normal. ? You pee less than normal, or you notice that your pee is a darker color than normal. ? You feel weak. ? You throw up (vomit). ? Your skin or the whites of your eyes look yellow (jaundice). ? Your skin: ? Tingles. ? Is numb. ? Your rash: ? Does not go away after a few days. ? Gets worse. ? You are: ? More thirsty than normal. ? More tired than normal. ? You have: ? New symptoms. ? Pain in your belly (abdomen). ? A fever. ? Watery poop (diarrhea). Get help right away if: ? You have a fever and your symptoms suddenly get worse. ? You start to feel mixed up (confused). ? You have a very bad headache or a stiff neck. ? You have very bad joint pains or stiffness. ? You have jerky movements that you cannot control (seizure). ? Your rash covers all or most of your body. The rash may or may not be painful. ? You have blisters that: ? Are on top of the rash. ? Grow larger. ? Grow together. ? Are painful. ? Are inside your nose or mouth. ? You have a rash that: ? Looks like purple pinprick-sized spots all over your body. ? Has a bull's eye or looks like a target. ? Is red and painful, causes your skin to peel, and is not from being in the sun too long. Summary ? A rash is a change in the color of your skin. A rash can also change the way your skin feels. ? The goal of treatment is to stop the itching and keep the rash from spreading. ? Take or apply zqgw-rpn-fqmmhyi and prescription medicines only as told by your doctor. ? Contact a doctor if you have new symptoms or symptoms that get worse. ? Keep all follow-up visits as told by your doctor. This is important. This information is not intended to replace advice given to you by your health care provider. Make sure you discuss any questions you have with your health care provider. Document Revised: 04/15/2022 Document Reviewed: 04/15/2022 [employer] Patient Education ? 2022 [employer] Obstetrics and Gynecology Syphilis Syphilis is a curable infection that can spread through sexual contact. It is important to get treatment right away to reduce the possibility of serious complications. There are four stages of syphilis: ? Primary stage. During this stage, sores may form where the disease entered your body. ? Secondary stage. During this stage, skin rashes and lesions will form. ? Latent stage. During this stage, there are no symptoms, but the infection may still be contagious. ? Tertiary stage. This stage happens 5?30 years after the infection starts. During this stage (more content not included)... [facility] ED Patient Summaryon 024 ED Patient Summary [address] [address] Patient Discharge Instructions Person Information Name: GABRIELA FUENTES Age: 52 Years Arrival Date: 07/27/2023 19:31:10 Discharge Diagnosis: 1:Rash of both hands; 2:Rash of body Primary Care Physician: Dilma BENAVIDEZ MD Provider Information Primary Provider: Dorothea Dyson DO Advanced Production Inspector:Deb Foreman PA-C The exam and treatment you received in the Emergency Department were for an urgent problem and are not intended as complete care. It is important that you follow up with a doctor, nurse practitioner, or physician?s medical laboratory assistant for ongoing care. If your symptoms become worse or you do not improve as expected and you are unable to reach your usual health care provider, you should return to the Emergency Department. We are available 24 hours a day. GABRIELA FUENTES has been given the following list of patient education materials, prescriptions and follow-up instructions: Follow-up Instructions: With: Address: When: Dilma BENAVIDEZ MD, [address] [address] In 3 days 07/30/2023 In the event that this physician does not participate in your insurance network, please consult with your insurance company to find a nearby participating provider. Patient Education Materials: Syphilis; Rash, Adult, Plgo-aq-Akzr A MESSAGE TO ALL PATIENTS REGARDING OPIOIDS PRESCRIPTION OPIOIDS: WHAT YOU NEED TO KNOW Prescription opioids can be used to help relieve xbmukozx-cj-znjsux pain and are often prescribed following a surgery or injury, or for certain health conditions. These medications can be an important part of the treatment but also come with serious risks. It is important to work with your healthcare provider to make sure you are getting the safest, most effective care. WHAT ARE THE RISKS AND SIDE EFFECTS OF OPIOID USE? Prescription opioids carry serious risks of addiction and overdose, especially with prolonged use. An opioid overdose, often marked by slowed breathing, can cause sudden . The use of prescription opioids can have a number of side effects as well, even when taken as directed: ? Tolerance?meaning you might need to take more of the medication for the same pain relief ? Physical dependence?meaning you have symptoms of withdrawal when a medication is stopped ? Increased sensitivity to pain ? Constipation ? Nausea, vomiting, and dry mouth ? Sleepiness and dizziness ? Confusion ? Depression ? Low levels of testosterone that can result in lower sex drive, energy, and strength ? Itching and sweating RISKS ARE GREATER WITH: ? History of drug misuse, substance use disorder, or overdose ? Mental health conditions (such as depression or anxiety) ? Sleep apnea ? Older age (65 years and older) ? Avoid alcohol while taking prescription opioids. Also, unless specifically advised by your health care provider, medications to avoid include: ? Benzodiazepines (such as Xanax or Valium) ? Muscle relaxants (such as Soma or Flexeril) ? Hypnotics (such as Ambien or Lunesta) ? Other prescription opioids KNOW YOUR OPTIONS Talk to your health care provider about ways to manage your pain that don?t involve prescription opioids. Some of these options may actually work better and have fewer risks and side effects. Options may include: ? Pain relievers such as acetaminophen, ibuprofen, and naproxen ? Some medication that are also used for depression or seizures ? Physical therapy and exercise ? Cognitive behavioral therapy, a psychological, goal-directed approach, in which patients learn how to modify physical, behavioral, and emotional triggers of pain and stress. IF YOU ARE PRESCRIBED OPIOIDS FOR PAIN: ? Never take opioids in greater amounts or more often than prescribed. ? Follow up with your primary health care provider. o Work together to create a plan on how to manage your pain. o Talk about ways to help manage your pain that don?t involve prescription opioids. o Talk about any and all concerns and side effects. ? Help prevent misuse and abuse o Never sell or share prescription opioids. o Never use another person?s prescription opioids. ? Store prescription opioids in a secure place and out of reach of others (this may include visitors, children, friends, and family). ? Safely dispose of unused prescription opioids: Find your community drug take-back program or your pharmacy mail-back program, or flush them down the toilet, following guidance from the Food and Drug Administration (www.fda.gov/Drugs/ ResourcesForYou). ? Visit www.cdc.gov/drugove rdose to learn about the risks of opioids abuse and overdose. ? If you believe you may be struggling with addiction, tell your health caregivers non medical and ask for guidance or call [facility]?S (more content not included)... [facility] Ambulatory Visit Summaryon 0 07-26-2023 Ambulatory Visit Summary GABRIELA FUENTES :1970 Visit Date:07/26/2023 Ambulatory Visit Instructions Your Care Team Attending Physician - Roman LIM, Lashawn London Primary Care Physician - Dilma BENAVIDEZ MD This Is Your Medications List amoxicillin (amoxicillin 500 mg Cap) Procedures Performed Colonoscopy (02/25/2023). Discharge Vitals Temperature (Temporal Artery) 36.8 ?C Heart Rate (Peripheral) 79 Respiratory Rate 18 Blood Pressure 124/60 Height 180 cm Height 71 in Weight 97.1 kg Weight 213.62 lb BMI 29.97 What to do next Scheduled Follow-Up Appointments Tuesday 11:00 AM EST With: DENIZ DODSON, Khurram Adams Where: [facility] Patient Educationon 07-26-19 24 Patient Education Immunology Dyshidrotic Eczema Dyshidrotic eczema, also known as pompholyx, is a type of eczema that causes very itchy, fluid-filled blisters (vesicles) to form on the hands and feet. It is more common before age 40, though it can affect people of any age. There is no cure, but treatment and certain lifestyle changes can help relieve symptoms. What are the causes? The cause of this condition is not known. What increases the risk? You are more likely to develop this condition if: ? You wash your hands frequently. ? You have a personal or family history of eczema, allergies, asthma, or hay fever. ? You are allergic to metals, such as nickel or cobalt. ? You work with cement. ? You smoke. What are the signs or symptoms? Symptoms of this condition may affect the hands, the feet, or both. Symptoms may come and go (recur), and may include: ? Severe itching. This may happen before blisters appear. ? Blisters. These may form suddenly. ? In the early stages, blisters may form near the fingertips. ? In severe cases, blisters may grow to large blister masses (bullae). ? Blisters resolve in 2?3 weeks without bursting. This is followed by a dry phase in which itching eases. ? Pain and swelling. ? Cracks or long, narrow openings (fissures) in the skin. ? Severe dryness. ? Ridges on the nails. How is this diagnosed? This condition may be diagnosed based on: ? Your symptoms and a physical exam. ? Your medical history. ? Skin scrapings to rule out a fungal infection. ? Testing a swab of fluid for bacteria (culture). ? Removing a small piece of skin (biopsy) to test for infection or to rule out other conditions. ? Skin patch tests. These tests involve using patches that contain possible allergens and placing them on your back. Your health care provider will wait a few days and then check to see if an allergic reaction occurred. These tests may be done if your health care provider suspects allergic reactions, or to rule out other types of eczema. You may be referred to a health care provider who specializes in skin conditions (audio specialist) to help diagnose and treat this condition. How is this treated? There is no cure for this condition, but treatment can help relieve symptoms. Depending on the amount and severity of the blisters, your health care provider may suggest: ? Avoiding allergens, irritants, or triggers that worsen symptoms. This may involve lifestyle changes, such as: ? Using different lotions or soaps. ? Avoiding hot weather or places that will cause you to sweat a lot. ? Managing stress with coping techniques, such as relaxation and exercise, and asking for help when you need it. ? Diet changes as recommended by your health care provider. ? Using a clean, damp towel (cool compress) to relieve symptoms. ? Soaking in a bath that contains a type of salt that relieves irritation (aluminum acetate soaks). ? Medicines, such as: ? Medicine taken by mouth to reduce itching (oral antihistamines). ? Medicine applied to the skin to reduce swelling and irritation (topical corticosteroids). ? Medicine that reduces the activity of the body's disease-fighting system (immunosuppressants ) to treat inflammation. This may be given in severe cases. ? Antibiotic medicines to treat bacterial infection. ? Light therapy (phototherapy). This involves shining ultraviolet (UV) light on the affected skin in order to reduce itchiness and inflammation. Follow these instructions at home: Bathing and skin care ? Wash skin gently. After bathing or washing your hands, pat your skin dry. Avoid rubbing your skin. ? Remove all jewelry before bathing. If the skin under the jewelry stays wet, blisters may form or get worse. ? Apply cool compresses as told by your health care provider. To do this: ? Soak a clean towel in cool water. ? Wring out excess water until towel is damp. ? Place the towel over the affected skin. Leave the towel on for 20 minutes at a time, 2?3 times a day. ? Use mild soaps, cleansers, and lotions that do not contain dyes, perfumes, or other irritants. ? Keep your skin hydrated. To do this: ? Avoid very hot water. Take lukewarm baths or showers. ? Apply moisturizer within 3 minutes of bathing. This locks in moisture. Medicines ? Take and apply gneh-glw-vhsxxbn and prescription medicines only as told by your health care provider. ? If you were prescribed an antibiotic medicine, take or apply it as told by your health care provider. Do not stop using the antibiotic even if you start to feel better. General instructions ? Do not use any products that contain nicotine or tobacco. These include cigarettes, chewing tobacco, and vaping devices, such as e-cigarettes. If you need help quitting, ask your health care provider. ? Identify and avoid triggers and allergens. ? Keep fingernails short to avoid breaking the skin while scratchi (more content not included)... [facility] Provider Letteron 06-20-2023 Provider Letter June 20, 2023 GABRIELA FUENTES [address] [place] [address] : 1970 To Whom It May Concern, Please excuse above patient from work. Date of Illness: From: 06/16/2023 To: 06/20/2023 May Return to Work On: 06/21/2023 Sincerely, [address] [address] [facility] Provider Letter June 20, 2023 GABRIELA [place] [place] [address] : 1970 To Whom It May Concern, Please excuse above patient from work. Date of Illness: From: 06/16/2023 To: 06/20/2023 May Return to Work On: 06/21/2023 Sincerely, [address] [address] [facility] Physician Referralon 023 Physician Referral [id number] [facility] Immunofixation,Urineon 01-25 Ur. IFX-Interpret IMMUNOFIXATION IS NEGATIVE FOR MONOCLONAL IMMUNOGLOBULIN. [facility] Comment on above: Performed By: #### F KLLC, URCRE, IFX, PHEP, URTP, ANASCN, C4, ANCACP, C3 #### [facility] [address] [place] [address] [id number] Service Shop Foreman: Moustapha Irvin MD #### URIFX #### [facility] [address] [place] [address] Service Shop Foreman: Moustapha Irvin MD [facility] [address] [facility] [address] Service Shop Foreman: Sachin Reynolds MD #### CDP, RENP, UA #### [facility] [address] [facility] [place] [address] Service Shop Foreman: Sachin Reynolds MD Immunofixation,Bloodon 01-23 IFX - Interpret. IMMUNOFIXATION IS NEGATIVE FOR MONOCLONAL IMMUNOGLOBULIN. [facility] Comment on above: Performed By: #### F KLLC, URCRE, IFX, PHEP, URTP, ANASCN, C4, ANCACP, C3 #### [address] [address] Service Shop Foreman: Moustapha Irvin MD #### URIFX #### [address] [address] Service Shop Foreman: Moustapha Irvin MD [facility] [address] [place] [address] Service Shop Foreman: Sachin Reynolds MD #### CDP, RENP, UA #### [facility] [address] [place] [address] Service Shop Foreman: Sachin Reynolds MD Pathologist Review: Reviewed by pathologist: Brent Moreno D.O. [facility] Comment on above: Performed By: #### F KLLC, URCRE, IFX, PHEP, URTP, ANASCN, C4, ANCACP, C3 #### [address] [address] Service Shop Foreman: Moustapha Irvin MD #### URIFX #### [address] [address] Service Shop Foreman: Moustapha Irvin MD [facility] [address] [place] [address] Service Shop Foreman: Sachin Reynolds MD #### CDP, RENP, UA #### [facility] [address] [place] [address] Service Shop Foreman: Sachin Reynolds MD Hepatitis Acute [facility] 01-22 Hep A Ab,IgM Non-Reactive Normal NR [facility] Comment on above: Performed By: #### F KLLC, URCRE, IFX, PHEP, URTP, ANASCN, C4, ANCACP, C3 #### [address] [address] Service Shop Foreman: Moustapha Irvin MD #### URIFX #### [address] [address] Service Shop Foreman: Moustapha Irvin MD [facility] [address] [place] [address] Service Shop Foreman: Sachin Reynolds MD #### CDP, RENP, UA #### [facility] [address] [place] [address] Service Shop Foreman: Sachin Reynolds MD Hep B Core Ab,IgM Non-Reactive Normal NR [facility] Comment on above: Performed By: #### F KLLC, URCRE, IFX, PHEP, URTP, ANASCN, C4, ANCACP, C3 #### [address] [address] Service Shop Foreman: Moustapha Irvin MD #### URIFX #### [address] [address] Service Shop Foreman: Moustapha Irvin MD [facility] [address] [place] [address] Service Shop Foreman: Sachin Reynolds MD #### CDP, RENP, UA #### [facility] [address] [place] [address] Service Shop Foreman: Sachin Reynolds MD Hep B Surf Ag Non-Reactive Normal NR [facility] Comment on above: Performed By: #### F KLLC, URCRE, IFX, PHEP, URTP, ANASCN, C4, ANCACP, C3 #### [facility] [address] [place] [address] Service Shop Foreman: Moustapha Irvin MD #### URIFX #### [address] [address] Service Shop Foreman: Moustapha Irvin MD [facility] [address] [place] [address] Service Shop Foreman: Sachin Reynolds MD #### CDP, RENP, UA #### [facility] [address] [place] [address] Service Shop Foreman: Sachin Reynolds MD Hep C Ab Non-Reactive Normal NR [facility] Comment on above: Result Comment: The hepatitis C procedure used in our laboratory is a Chemiluminescent test specific for three recombinant HCV antigens. A negative anti-HCV result indicates that the antibodies to hepatitis C virus are not present at this time. Individuals with reactive anti-HCV should be considered infected and infectious until proven otherwise. Confirmation of all equivocal or reactive results is recommended by ordering HCV RNA by PCR. Performed By: #### F KLLC, URCRE, IFX, PHEP, URTP, ANASCN, C4, ANCACP, C3 #### [address] [address] Service Shop Foreman: Moustapha Irvin MD #### URIFX #### [address] [address] Service Shop Foreman: Moustapha Irvin MD [facility] [address] [place] [address] Service Shop Foreman: Sachin Reynolds MD #### ANITRA NUR UA #### [facility] [address] [place] [address] Service Shop Foreman: Sachin Reynolds MD IBRAHIMA Screenon 01-21-2023 IBRAHIMA Screen Negative Normal NEG [facility] Comment on above: Performed By: #### F KLLC, URCRE, IFX, PHEP, URTP, ANASCN, C4, ANCACP, C3 #### [facility] [address] [place] [address] Service Shop Foreman: Moustapha Irvin MD #### URIFX #### [facility] [address] [place] [address] Service Shop Foreman: Moustapha Irvin MD [facility] [address] [place] [address] Service Shop Foreman: Sachin Reynolds MD #### CDP, RENP, UA #### [facility] [address] [place], [place] [phone] Service Shop Foreman: Sachin Reynolds MD Anti-dsDNA 0.7 IU/mL Normal <10.0 [facility] Comment on above: Result Comment: Reference Range: <10.0 Negative 10.0-15.0 Equivocal >15.0 Positive Performed By: #### F KLLC, URCRE, IFX, PHEP, URTP, ANASCN, C4, ANCACP, C3 #### [facility] [address] [place] [address] Service Shop Foreman: Moustapha Irvin MD #### URIFX #### [address] [address] Service Shop Foreman: Moustapha Irvin MD [facility] [address] [place], [place] [phone] Service Shop Foreman: Sachin Reynolds MD #### CDP, RENP, UA #### [facility] [address] [place], [place] [phone] Service Shop Foreman: Sachin Reynolds MD GI Screen 0.2 U/mL Normal <0.7 [facility] Comment on above: Result Comment: Reference Range: <0.7 Negative 0.7-1.0 Equivocal >1.0 Positive GI Screen includes U1RNP,RNP70,Sm,Ro(SS-A),La(SS-B),CENP,Scl-70,Jaymie-1 Performed By: #### F KLLC, URCRE, IFX, PHEP, URTP, ANASCN, C4, ANCACP, C3 #### [facility] [address] [place] [address] Service Shop Foreman: Moustapha Irvin MD #### URIFX #### [address] [address] Service Shop Foreman: Moustapha Irvin MD [facility] [address] [place], [place] [phone] Service Shop Foreman: Sachin Reynolds MD #### CDP, RENP, UA #### [facility] [address] [facility] [place], [place] [phone] Service Shop Foreman: Sachin Reynolds MD Creatinine,Random Uron 01-21 Creatinine [Mass/Vol] 25.1 mg/dL Low 39.0-259.0 [facility] Comment on above: Performed By: #### F KLLC, URCRE, IFX, PHEP, URTP, ANASCN, C4, ANCACP, C3 #### [address] [phone] Service Shop Foreman: Moustapha Irvin MD #### URIFX #### [address] [phone] Service Shop Foreman: Moustapha Irvin MD [facility] [address] [place], [place] [phone] Service Shop Foreman: Sachin Reynolds MD #### CDP, RENP, UA #### [facility] [address] [place], [place] [phone] Service Shop Foreman: Sachin Reynolds MD [facility] [place] + Lambdaon 2022 Free [place] Lt Chains 1.78 mg/dL Normal 0.37-1.94 [facility] Comment on above: Performed By: #### F KLLC, URCRE, IFX, PHEP, URTP, ANASCN, C4, ANCACP, C3 #### [address] [address] Service Shop Foreman: Moustapha Irvin MD #### URIFX #### [address] [address] Service Shop Foreman: Moustapha Irvin MD [facility] [address] [place], [place] [phone] Service Shop Foreman: Sachin Reynolds MD #### CDP, RENP, UA #### [facility] [address] [place] [address] Service Shop Foreman: Sachin Reynolds MD Free [place]/Lambda Rat 0.99 Normal 0.26-1.65 [facility] Comment on above: Performed By: #### F KLLC, URCRE, IFX, PHEP, URTP, ANASCN, C4, ANCACP, C3 #### [address] [address] Service Shop Foreman: Moustapha Irvin MD #### URIFX #### [address] [address] Service Shop Foreman: Moustapha Irvin MD [facility] [address] [place] [address] Service Shop Foreman: Sachin Reynolds MD #### ANITRA NUR, UA #### [facility] [address] [place] [address] Service Shop Foreman: Sachin Reynolds MD Free Lambda Lt Chains 1.80 mg/dL Normal 0.57-2.63 [facility] Comment on above: Performed By: #### F KLLC, URCRE, IFX, PHEP, URTP, ANASCN, C4, ANCACP, C3 #### [address] [address] Service Shop Foreman: Moustapha Irvin MD #### URIFX #### [address] [address] Service Shop Foreman: Moustapha Irvin MD [facility] [address] [place] [address] Service Shop Foreman: Sachin Reynolds MD #### CDP, ISIDROP, UA #### [facility] [address] [place] [address] Service Shop Foreman: Sachin Reynolds MD Immunofixation,Urineon 01-21 Total Protein Conc. <4 Normal [facility] Comment on above: Performed By: #### F KLLC, URCRE, IFX, PHEP, URTP, ANASCN, C4, ANCACP, C3 #### [address] [address] Service Shop Foreman: Moustapha Irvin MD #### URIFX #### [address] [address] Service Shop Foreman: Moustapha Irvin MD [facility] [address] [place], [place] [phone] Service Shop Foreman: Sachin Reynolds MD #### ANITRA NUR, UA #### [facility] [address] [place], [place] [phone] Service Shop Foreman: Sachin Reynolds MD Neutrophil Cytopl Abon 01-21 MPO-ANCA 0.8 AU/mL Normal 0.0-3.5 [facility] Comment on above: Result Comment: Reference Range: <3.5 Negative 3.5-5.0 Equivocal >5.0 Positive Performed By: #### F KLLC, URCRE, IFX, PHEP, URTP, ANASCN, C4, ANCACP, C3 #### [address] [address] Service Shop Foreman: Moustapha Irvin MD #### URIFX #### [address] [address] Service Shop Foreman: Moustapha Irvin MD [facility] [address] [place], [place] [phone] Service Shop Foreman: Sachin Reynolds MD #### CDP, ISIDROP, UA #### [facility] [address] [place], [place] [phone] Service Shop Foreman: Sachin Reynolds MD PR3-ANCA 1.0 AU/mL Normal 0.0-2.0 [facility] Comment on above: Result Comment: Reference Range: <2.0 Negative 2.0-3.0 Equivocal >3.0 Positive Performed By: #### F KLLC, URCRE, IFX, PHEP, URTP, ANASCN, C4, ANCACP, C3 #### [address] [address] Service Shop Foreman: Moustapha Irvin MD #### URIFX #### [address] [address] Service Shop Foreman: Moustapha Irvin MD [facility] [address] [place], [place] [phone] Service Shop Foreman: Sachin Reynolds MD #### CDP, RENP, UA #### [facility] [address] [place], [place] [phone] Service Shop Foreman: Sachin Reynolds MD Protein,Tot,[place] Uron 2022 Tot Prot. Conc. <4 Normal [facility] Comment on above: Result Comment: No n ormal range established. Performed By: #### F KLLC, URCRE, IFX, PHEP, URTP, ANASCN, C4, ANCACP, C3 #### [address] [address] Service Shop Foreman: Moustapha Irvin MD #### URIFX #### [address] [address] Service Shop Foreman: Moustapha Irvin MD [facility] [address] [place], [place] [phone] Service Shop Foreman: Sachin Reynolds MD #### CDP, RENP, UA #### [facility] [address] [place], [place] [phone] Service Shop Foreman: Sachin Reynolds MD C3on 01-20-2023 C3 129 mg/dL Normal 90-180 [facility] Comment on above: Performed By: #### F KLLC, URCRE, IFX, PHEP, URTP, ANASCN, C4, ANCACP, C3 #### [facility] [address] [place] [address] Service Shop Foreman: Moustapha Irvin MD #### URIFX #### [address] [address] Service Shop Foreman: Moustapha Irvin MD [facility] [address] [place] [address] Service Shop Foreman: Sachin Reynolds MD #### CDP, RENP, UA #### [facility] [address] [place] [address] Service Shop Foreman: Sachin Reynolds MD C4on 01-20-2023 C4 30 mg/dL Normal 10-40 [facility] Comment on above: Performed By: #### F KLLC, URCRE, IFX, PHEP, URTP, ANASCN, C4, ANCACP, C3 #### [address] [address] Service Shop Foreman: Moustapha Irvin MD #### URIFX #### [address] [address] Service Shop Foreman: Moustapha Irvin MD [facility] [address] [place] [address] Service Shop Foreman: Sachin Reynolds MD #### CDP, RENP, UA #### [facility] [address] [place] [address] Service Shop Foreman: Sachin Reynolds MD CBC with Diffon 01-20-2023 Abs. Basophil 0.10 k/uL Normal 0.0-0.2 [facility] Comment on above: Performed By: #### F KLLC, URCRE, IFX, PHEP, URTP, ANASCN, C4, ANCACP, C3 #### [facility] [address] [place] [address] Service Shop Foreman: Moustapha Irvin MD #### URIFX #### [facility] [address] [place] [address] Service Shop Foreman: Moustapha Irvin MD [facility] [address] [place] [address] Service Shop Foreman: Sachin Reynolds MD #### CDP, RENP, UA #### [facility] [address] [place] [address] Service Shop Foreman: Sachin Reynolds MD Abs.Neutrophil (Seg) 3.30 k/uL Normal 2.1-6.5 [facility] Comment on above: Performed By: #### F KLLC, URCRE, IFX, PHEP, URTP, ANASCN, C4, ANCACP, C3 #### [address] [address] Service Shop Foreman: Moustapha Irvin MD #### URIFX #### [address] [address] Service Shop Foreman: Moustapha Irvin MD [facility] [address] [place] [address] Service Shop Foreman: Sachin Reynolds MD #### CDP, RENP, UA #### [facility] [address] [place] [address] Service Shop Foreman: Sachin Reynolds MD Auto Diff Performed YES Normal [facility] Comment on above: Performed By: #### F KLLC, URCRE, IFX, PHEP, URTP, ANASCN, C4, ANCACP, C3 #### [facility] [address] [place] [address] Service Shop Foreman: Moustapha Irvin MD #### URIFX #### [address] [address] Service Shop Foreman: Moustapha Irvin MD [facility] [address] [place] [address] Service Shop Foreman: Sachin Reynolds MD #### CDP, RENP, UA #### [facility] [address] [place] [address] Service Shop Foreman: Sachin Reynolds MD Basophils/100 WBC (Bld) 1 % Normal 0-2 [facility] Comment on above: Performed By: #### F KLLC, URCRE, IFX, PHEP, URTP, ANASCN, C4, ANCACP, C3 #### [facility] [address] [place] [address] Service Shop Foreman: Moustapha Irvin MD #### URIFX #### [address] [address] Service Shop Foreman: Moustapha Irvin MD [facility] [address] [place] [address] Service Shop Foreman: Sachin Reynolds MD #### CDP, RENP, UA #### [facility] [address] [place] [address] Service Shop Foreman: Sachin Reynolds MD Eosinophils (Bld) [#/Vol] 0.20 10*3/uL Normal 0.0-0.4 [facility] Comment on above: Performed By: #### F KLLC, URCRE, IFX, PHEP, URTP, ANASCN, C4, ANCACP, C3 #### [address] [address] Service Shop Foreman: Moustapha Irvin MD #### URIFX #### [address] [address] Service Shop Foreman: Moustapha Irvin MD [facility] [address] [place] [address] Service Shop Foreman: Sachin Reynolds MD #### CDP, RENP, UA #### [facility] [address] [place] [address] Service Shop Foreman: Sachin Reynolds MD Eosinophils/100 WBC (Bld) 3 % Normal 0-5 [facility] Comment on above: Performed By: #### F KLLC, URCRE, IFX, PHEP, URTP, ANASCN, C4, ANCACP, C3 #### [facility] [address] [place] [address] Service Shop Foreman: Moustapha Irvin MD #### URIFX #### [address] [address] Service Shop Foreman: Moustapha Ivrin MD [facility] [address] [place], [place] [phone] Service Shop Foreman: Sachin Reynolds MD #### CDP, ISIDROP, UA #### [facility] [address] [place] [address] Service Shop Foreman: Sachin Reynolds MD Erythrocyte distribution width (RBC) [Ratio] 14.0 % Normal 12.1-15.2 [facility] Comment on above: Performed By: #### F KLLC, URCRE, IFX, PHEP, URTP, ANASCN, C4, ANCACP, C3 #### [facility] [address] [place] [address] Service Shop Foreman: Moustapha Irvin MD #### URIFX #### [address] [address] Service Shop Foreman: Moustapha Irvin MD [facility] [address] [place], [place] [phone] Service Shop Foreman: Sachin Reynolds MD #### CDP, RENP, UA #### [facility] [address] [place] [address] Service Shop Foreman: Sachin Reynolds MD Hematocrit (Bld) [Volume fraction] 40.0 % Low 41-53 [facility] Comment on above: Performed By: #### F KLLC, URCRE, IFX, PHEP, URTP, ANASCN, C4, ANCACP, C3 #### [address] [address] Service Shop Foreman: Moustapha Irvin MD #### URIFX #### [address] [address] Service Shop Foreman: Moustapha Irvin MD [facility] [address] [place], [place] [phone] Service Shop Foreman: Sachin Reynolds MD #### CDP, RENP, UA #### [facility] [address] [place], [place] [phone] Service Shop Foreman: Sachin Reynolds MD Hemoglobin (Bld) [Mass/Vol] 13.4 g/dL Low 13.5-17.5 [facility] Comment on above: Performed By: #### F KLLC, URCRE, IFX, PHEP, URTP, ANASCN, C4, ANCACP, C3 #### [address] [address] Service Shop Foreman: Moustapha Irvin MD #### URIFX #### [address] [address] Service Shop Foreman: Moustapha Irvin MD [facility] [address] [place], [place] [phone] Service Shop Foreman: Sachin Reynolds MD #### CDP, RENP, UA #### [facility] [address] [place] [address] Service Shop Foreman: Sachin Reynolds MD Lymphocytes (Bld) [#/Vol] 3.90 10*3/uL Normal 1.0-4.8 [facility] Comment on above: Performed By: #### F KLLC, URCRE, IFX, PHEP, URTP, ANASCN, C4, ANCACP, C3 #### [address] [address] Service Shop Foreman: Moustapha Irvin MD #### URIFX #### [facility] [address] [place] [address] Service Shop Foreman: Moustapha Irvin MD [facility] [address] [place] [address] Service Shop Foreman: Sachin Reynolds MD #### CDP, ISIDROP, UA #### [facility] [address] [place] [address] Service Shop Foreman: Sachin Reynolds MD Lymphocytes/100 WBC (Bld) 46 % High 13-44 [facility] Comment on above: Performed By: #### F KLLC, URCRE, IFX, PHEP, URTP, ANASCN, C4, ANCACP, C3 #### [facility] [address] [place] [address] Service Shop Foreman: Moustapha Irvin MD #### URIFX #### [address] [address] Service Shop Foreman: Moustapha Irvin MD [facility] [address] [place] [address] Service Shop Foreman: Sachin Reynolds MD #### CDP, RENP, UA #### [facility] [address] [place] [address] Service Shop Foreman: Sachin Reynolds MD MCH (RBC) [Entitic mass] 31.7 pg Normal 26-34 [facility] Comment on above: Performed By: #### F KLLC, URCRE, IFX, PHEP, URTP, ANASCN, C4, ANCACP, C3 #### [facility] [address] [place] [address] Service Shop Foreman: Moustapha Irvin MD #### URIFX #### [address] [address] Service Shop Foreman: Moustapha Irvin MD [facility] [address] [place], [place] [phone] Service Shop Foreman: Sachin Reynolds MD #### CDP, RENP, UA #### [facility] [address] [place], [place] [phone] Service Shop Foreman: Sachin Reynolds MD MCHC (RBC) [Mass/Vol] 33.6 g/dL Normal 31-37 [facility] Comment on above: Performed By: #### F KLLC, URCRE, IFX, PHEP, URTP, ANASCN, C4, ANCACP, C3 #### [facility] [address] [place] [address] [phone] Service Shop Foreman: Moustapha Irvin MD #### URIFX #### [address] [phone] Service Shop Foreman: Moustapha Irvin MD [facility] [address] [place] [address] Service Shop Foreman: Sachin Reynolds MD #### CDP, RENP, UA #### [facility] [address] [place], [place] [phone] Service Shop Foreman: Sachin Reynolds MD MCV (RBC) [Entitic vol] 94.2 fL Normal 80-100 [facility] Comment on above: Performed By: #### F KLLC, URCRE, IFX, PHEP, URTP, ANASCN, C4, ANCACP, C3 #### [address] [address] Service Shop Foreman: Moustapha Irvin MD #### URIFX #### [address] [address] Service Shop Foreman: Moustapha Irvin MD [facility] [address] [place] [address] Service Shop Foreman: Sachin Reynolds MD #### CDP, RENP, UA #### [facility] [address] [place] [address] Service Shop Foreman: Sachin Reynolds MD Monocytes (Bld) [#/Vol] 0.90 10*3/uL Normal 0.0-1.0 [facility] Comment on above: Performed By: #### F KLLC, URCRE, IFX, PHEP, URTP, ANASCN, C4, ANCACP, C3 #### [address] [address] Service Shop Foreman: Moustapha Irvin MD #### URIFX #### [address] [address] Service Shop Foreman: Moustapha Irvin MD [facility] [address] [place] [address] Service Shop Foreman: Sachin Reynolds MD #### ANITRA NUR, UA #### [facility] [address] [place] [address] Service Shop Foreman: Sachin Reynolds MD Monocytes/100 WBC (Bld) 10 % High 5-9 [facility] Comment on above: Performed By: #### F KLLC, URCRE, IFX, PHEP, URTP, ANASCN, C4, ANCACP, C3 #### [address] [address] Service Shop Foreman: Moustapha Irvin MD #### URIFX #### [address] [address] Service Shop Foreman: Moustapha Irvin MD [facility] [address] [place], [place] [phone] Service Shop Foreman: Sachin Reynolds MD #### CDP, RENP, UA #### [facility] [address] [place] [address] Service Shop Foreman: Sachin Reynolds MD Neutrophil (Seg) 40 % Normal 39-[address] [facility] Comment on above: Performed By: #### F KLLC, URCRE, IFX, PHEP, URTP, ANASCN, C4, ANCACP, C3 #### [facility] [address] [place] [address] Service Shop Foreman: Moustapha Irvin MD #### URIFX #### [address] [address] Service Shop Foreman: Moustapha Irvin MD [facility] [address] [place] [address] Service Shop Foreman: Sachin Reynolds MD #### CDP, RENP, UA #### [facility] [address] [place] [address] Service Shop Foreman: Sachin Reynolds MD Platelets (Bld) [#/Vol] 358 10*3/uL Normal 140-450 [facility] Comment on above: Performed By: #### F KLLC, URCRE, IFX, PHEP, URTP, ANASCN, C4, ANCACP, C3 #### [address] [address] Service Shop Foreman: Moustapha Irvin MD #### URIFX #### [address] [address] Service Shop Foreman: Moustapha Irvin MD [facility] [address] [place] [address] Service Shop Foreman: Sachin Reynolds MD #### CDP, RENP, UA #### [facility] [address] [place] [address] Service Shop Foreman: Sachin Reynolds MD RBC (Bld) [#/Vol] 4.25 10*6/uL Low 4.5-5.9 [facility] Comment on above: Performed By: #### F KLLC, URCRE, IFX, PHEP, URTP, ANASCN, C4, ANCACP, C3 #### [facility] [address] [place] [address] Service Shop Foreman: Moustapha Irvin MD #### URIFX #### [address] [address] Service Shop Foreman: Moustapha Irvin MD [facility] [address] [place] [address] Service Shop Foreman: Sachin Reynolds MD #### CDP, RENP, UA #### [facility] [address] [place] [address] Service Shop Foreman: Sachin Reynolds MD WBC (Bld) [#/Vol] 8.4 10*3/uL Normal 3.5-11.0 [facility] Comment on above: Performed By: #### F KLLC, URCRE, IFX, PHEP, URTP, ANASCN, C4, ANCACP, C3 #### [address] [address] Service Shop Foreman: Moustapha Irvin MD #### URIFX #### [address] [address] Service Shop Foreman: Moustapha Irvin MD [facility] [address] [place] [address] Service Shop Foreman: Sachin Reynolds MD #### CDP, RENP, UA #### [facility] [address] [place] [address] Service Shop Foreman: Sachin Reynolds MD Immunofixation,Urineon 01-20 Volume RANDOM Normal [facility] Comment on above: Performed By: #### F KLLC, URCRE, IFX, PHEP, URTP, ANASCN, C4, ANCACP, C3 #### [facility] [address] [place] [address] Service Shop Foreman: Moustapha Irvin MD #### URIFX #### [address] [phone] Service Shop Foreman: Moustapha Irvin MD [facility] [address] [facility] [address] Service Shop Foreman: Sachin Reynolds MD #### CDP, RENP, UA #### [facility] [address] [facility] [place] [address] Service Shop Foreman: Sachin Reynolds MD Type of Specimen RANDOM Normal [facility] Comment on above: Performed By: #### F KLLC, URCRE, IFX, PHEP, URTP, ANASCN, C4, ANCACP, C3 #### [facility] [address] [place] [address] Service Shop Foreman: Moustapha Irvin MD #### URIFX #### [facility] [address] [place] [address] Service Shop Foreman: Moustapha Irvin MD [facility] [address] [place] [address] Service Shop Foreman: Sachin Reynolds MD #### CDP, RENP, UA #### [facility] [address] [place] [address] Service Shop Foreman: Sachin Reynolds MD Renal Function Panelon 01-20 Albumin [Mass/Vol] 4.2 g/dL Normal 3.5-5.2 [facility] Comment on above: Performed By: #### F KLLC, URCRE, IFX, PHEP, URTP, ANASCN, C4, ANCACP, C3 #### [facility] [address] [place] [address] Service Shop Foreman: Moustapha Irvin MD #### URIFX #### [facility] [address] [place] [address] Service Shop Foreman: Moustapha Irvin MD [facility] [address] [place] [address] Service Shop Foreman: Sachin Reynolds MD #### CDP, RENP, UA #### [facility] [address] [place] [address] Service Shop Foreman: Sachin Reynolds MD Anion gap [Moles/Vol] 11 mmol/L Normal 9-17 [facility] Comment on above: Performed By: #### F KLLC, URCRE, IFX, PHEP, URTP, ANASCN, C4, ANCACP, C3 #### [address] [address] Service Shop Foreman: Moustapha Irvin MD #### URIFX #### [address] [address] Service Shop Foreman: Moustapha Irvin MD [facility] [address] [place] [address] Service Shop Foreman: Sachin Reynolds MD #### LIUDMILA, RENP, UA #### [facility] [address] [place] [address] Service Shop Foreman: Sachin Reynolds MD BUN/CRE Ratio 8 Low 9-20 [facility] Comment on above: Performed By: #### F KLLC, URCRE, IFX, PHEP, URTP, ANASCN, C4, ANCACP, C3 #### [address] [address] Service Shop Foreman: Moustapha Irvin MD #### URIFX #### [address] [address] Service Shop Foreman: Moustapha Irvin MD [facility] [address] [place] [address] Service Shop Foreman: Sachin Reynolds MD #### CDP, RENP, UA #### [facility] [address] [place] [address] Service Shop Foreman: Sachin Reynolds MD Calcium [Mass/Vol] 9.3 mg/dL Normal 8.6-10.4 [facility] Comment on above: Performed By: #### F KLLC, URCRE, IFX, PHEP, URTP, ANASCN, C4, ANCACP, C3 #### [address] [address] Service Shop Foreman: Moustapha Irvin MD #### URIFX #### [address] [address] Service Shop Foreman: Moustapha Irvin MD [facility] [address] [place] [address] Service Shop Foreman: Sachin Reynolds MD #### CDP, RENP, UA #### [facility] [address] [place] [address] Service Shop Foreman: Sachin Reynolds MD Chloride [Moles/Vol] 100 mmol/L Normal 98-107 [facility] Comment on above: Performed By: #### F KLLC, URCRE, IFX, PHEP, URTP, ANASCN, C4, ANCACP, C3 #### [address] [address] Service Shop Foreman: Moustapha Irvin MD #### URIFX #### [address] [address] Service Shop Foreman: Moustapha Irvin MD [facility] [address] [place] [address] Service Shop Foreman: Sachin Reynolds MD #### CDP, RENP, UA #### [facility] [address] [place] [address] Service Shop Foreman: Sachin Reynolds MD CO2 [Moles/Vol] 23 mmol/L Normal 20-31 [facility] Comment on above: Performed By: #### F KLLC, URCRE, IFX, PHEP, URTP, ANASCN, C4, ANCACP, C3 #### [facility] [address] [place] [address] Service Shop Foreman: Moustapha Irvin MD #### URIFX #### [place] [address] [place] [address] Service Shop Foreman: Moustapha Irvin MD [facility] [address] [place], [place] [phone] Service Shop Foreman: Sachin Reynolds MD #### CDP, RENP, UA #### [facility] [address] [place], [place] [phone] Service Shop Foreman: Sachin Reynolds MD Creatinine [Mass/Vol] 1.33 mg/dL High 0.70-1.20 [facility] Comment on above: Performed By: #### F KLLC, URCRE, IFX, PHEP, URTP, ANASCN, C4, ANCACP, C3 #### [address] [address] Service Shop Foreman: Moustapha Irvin MD #### URIFX #### [address] [address] Service Shop Foreman: Moustapha Irvin MD [facility] [address] [place], [place] [phone] Service Shop Foreman: Sachin Reynolds MD #### CDP, RENP, UA #### [facility] [address] [place], [place] [phone] Service Shop Foreman: Sachin Reynolds MD GFR/1.73 sq M.predicted among non-blacks MDRD (S/P/Bld) [Vol rate/Area] mL/min/{1.73_m2} Normal >60 [facility] Comment on above: Result Comment: These results are not intended for use in patients <18 years of age. eGFR results are calculated without a race factor using the 2020 CKD-EPI equation. Careful clinical correlation is recommended, particularly when comparing to results calculated using previous equations. The CKD-EPI equation is less accurate in patients with extremes of muscle mass, extra-renal metabolism of creatine, excessive creatine ingestion, or following therapy that affects renal tubular secretion. Performed By: #### F KLLC, URCRE, IFX, PHEP, URTP, ANASCN, C4, ANCACP, C3 #### [address] [address] Service Shop Foreman: Moustapha Irvin MD #### URIFX #### [address] [address] Service Shop Foreman: Moustapha Irvin MD [facility] [address] [place] [address] Service Shop Foreman: Sachin Reynolds MD #### CDP, RENP, UA #### [facility] [address] [place] [address] Service Shop Foreman: Sachin Reynolds MD Glucose [Mass/Vol] 90 mg/dL Normal 70-99 [facility] Comment on above: Performed By: #### F KLLC, URCRE, IFX, PHEP, URTP, ANASCN, C4, ANCACP, C3 #### [address] [address] Service Shop Foreman: Moustapha Irvin MD #### URIFX #### [address] [address] Service Shop Foreman: Moustapha Irvin MD [facility] [address] [place] [address] Service Shop Foreman: Sachin Reynolds MD #### CDP, RENP, UA #### [facility] [address] [place] [address] Service Shop Foreman: Sachin Ryenolds MD Phosphorus, Inorg. 3.1 mg/dL Normal 2.5-4.5 [facility] Comment on above: Performed By: #### F KLLC, URCRE, IFX, PHEP, URTP, ANASCN, C4, ANCACP, C3 #### [facility] [address] [place] [address] Service Shop Foreman: Moustapha Irvin MD #### URIFX #### [facility] [address] [place] [address] Service Shop Foreman: Moustapha Irvin MD [facility] [address] [place] [address] Service Shop Foreman: Sachin Reynolds MD #### CDP, RENP, UA #### [facility] [address] [place] [address] Service Shop Foreman: Sachin Reynolds MD Potassium [Moles/Vol] 3.8 mmol/L Normal 3.7-5.3 [facility] Comment on above: Performed By: #### F KLLC, URCRE, IFX, PHEP, URTP, ANASCN, C4, ANCACP, C3 #### [address] [address] Service Shop Foreman: Moustapha Irvin MD #### URIFX #### [address] [address] Service Shop Foreman: Moustapha Irvin MD [facility] [address] [place] [address] Service Shop Foreman: Sachin Reynolds MD #### CDP, RENP, UA #### [facility] [address] [place] [address] Service Shop Foreman: Sachin Reynolds MD Sodium [Moles/Vol] 134 mmol/L Low 135-144 [facility] Comment on above: Performed By: #### F KLLC, URCRE, IFX, PHEP, URTP, ANASCN, C4, ANCACP, C3 #### [facility] [address] [place] [address] Service Shop Foreman: Moustapha Irvin MD #### URIFX #### [address] [address] Service Shop Foreman: Moustapha Irvin MD [facility] [address] [place], [place] [phone] Service Shop Foreman: Sachin Reynolds MD #### CDP, RENP, UA #### [facility] [address] [place], [place] [phone] Service Shop Foreman: Sachin Reynolds MD Urea nitrogen [Mass/Vol] 10 mg/dL Normal 6-20 [facility] Comment on above: Performed By: #### F KLLC, URCRE, IFX, PHEP, URTP, ANASCN, C4, ANCACP, C3 #### [facility] [address] [place], [place] [id number] Service Shop Foreman: Moustapha Irvin MD #### URIFX #### [facility] [address] [place], [place] [phone] Service Shop Foreman: Moustapha Irvin MD [facility] [address] [place], [place] [phone] Service Shop Foreman: Sachin Reynolds MD #### CDP, RENP, UA #### [facility] [address] [place], [place] [phone] Service Shop Foreman: Sachin Reynolds MD US RENAL COMPLETEon 01-21-20 23 US RENAL COMPLETE EXAM: US RENAL COMPLETE HISTORY: Chronic kidney disease (CKD) stage G3a/A1, moderately decreased glomerular filtration rate (GFR) between 45-59 mL/min/1.73 square meter and albuminuria creatinine ratio less than 30 mg/g (HCC) COMPARISON: None. FINDINGS: Right kidney: 10.9 x 4.6 x 4.9 cm with cortical thickness 16 mm. Left kidney: 12.0 x 7.0 x 5.1 cm with cortical thickness 17 mm. Both ureteral jets are identified at the bladder. The bladder volume is 415 mL with 39 mL postvoid residual. Renal cortical echogenicity slightly elevated. IMPRESSION: Slight elevation in renal cortical echogenicity bilaterally with well-maintained renal cortex thickness. Interpreted by: Maicol Warner Jr., MD Signed by: Maicol Warner Jr., MD 01/20/23 Final result Normal [facility] Slight elevation in renal cortical echogenicity bilaterally with well-maintained renal cortex thickness. [facility] EXAM: US RENAL COMPLETE HISTORY: Chronic kidney disease (CKD) stage G3a/A1, moderately decreased glomerular filtration rate (GFR) between 45-59 mL/min/1.73 square meter and albuminuria creatinine ratio less than 30 mg/g (HCC) COMPARISON: None. FINDINGS: Right kidney: 10.9 x 4.6 x 4.9 cm with cortical thickness 16 mm. Left kidney: 12.0 x 7.0 x 5.1 cm with cortical thickness 17 mm. Both ureteral jets are identified at the bladder. The bladder volume is 415 mL with 39 mL postvoid residual. Renal cortical echogenicity slightly elevated. [facility] Maicol Warner Jr., MD - 01/20/2023 EXAM: US RENAL COMPLETE HISTORY: Chronic kidney disease (CKD) stage G3a/A1, moderately decreased glomerular filtration rate (GFR) between 45-59 mL/min/1.73 square meter and albuminuria creatinine ratio less than 30 mg/g (HCC) COMPARISON: None. FINDINGS: Right kidney: 10.9 x 4.6 x 4.9 cm with cortical thickness 16 mm. Left kidney: 12.0 x 7.0 x 5.1 cm with cortical thickness 17 mm. Both ureteral jets are identified at the bladder. The bladder volume is 415 mL with 39 mL postvoid residual. Renal cortical echogenicity slightly elevated. IMPRESSION: Slight elevation in renal cortical echogenicity bilaterally with well-maintained renal cortex thickness. [facility] Radiology Study observation (narrative) [facility] US RENAL COMPLETEOrdered By: Maicol Warner on 01-20-2023 [facility] Work Phone: Urinalysis, Routineon 2022 Bilirubin, SemiQt,Ur Negative Normal NEG [facility] Comment on above: Performed By: #### F KLLC, URCRE, IFX, PHEP, URTP, ANASCN, C4, ANCACP, C3 #### [facility] [address] [place] [address] Service Shop Foreman: Moustapha Irvin MD #### URIFX #### [facility] [address] [place] [address] Service Shop Foreman: Moustapha Irvin MD [facility] [address] [place] [address] Service Shop Foreman: Sachin Reynolds MD #### CDP, RENP, UA #### [facility] [address] [place] [address] Service Shop Foreman: Sachin Reynolds MD Blood, Urine Negative Normal NEG [facility] Comment on above: Performed By: #### F KLLC, URCRE, IFX, PHEP, URTP, ANASCN, C4, ANCACP, C3 #### [address] [address] Service Shop Foreman: Moustapha Irvin MD #### URIFX #### [address] [address] Service Shop Foreman: Moustapha Irvin MD [facility] [address] [place] [address] Service Shop Foreman: Sachin Reynolds MD #### CDP, RENP, UA #### [facility] [address] [place] [address] Service Shop Foreman: Sachin Reynolds MD Clarity (U) Clear Normal CLEAR [facility] Comment on above: Performed By: #### F KLLC, URCRE, IFX, PHEP, URTP, ANASCN, C4, ANCACP, C3 #### [facility] [address] [place] [address] Service Shop Foreman: Moustapha Irvin MD #### URIFX #### [address] [address] Service Shop Foreman: Moustpaha Irvin MD [facility] [address] [place] [address] Service Shop Foreman: Sachin Reynolds MD #### CDP, RENP, UA #### [facility] [address] [place] [address] Service Shop Foreman: Sachin Reynolds MD Color (U) Yellow Normal YEL [facility] Comment on above: Performed By: #### F KLLC, URCRE, IFX, PHEP, URTP, ANASCN, C4, ANCACP, C3 #### [facility] [address] [place] [address] Service Shop Foreman: Moustapha Irvin MD #### URIFX #### [address] [address] Service Shop Foreman: Moustapha Irvin MD [facility] [address] [place] [address] Service Shop Foreman: Sachin Reynolds MD #### CDP, RENP, UA #### [facility] [address] [place] [address] Service Shop Foreman: Sachin Reynolds MD Comment Normal [facility] Comment on above: Performed By: #### F KLLC, URCRE, IFX, PHEP, URTP, ANASCN, C4, ANCACP, C3 #### [facility] [address] [place] [address] Service Shop Foreman: Moustapha Irvin MD #### URIFX #### [address] [address] Service Shop Foreman: Moustapha Irvin MD [facility] [address] [place] [address] Service Shop Foreman: Sachin Reynolds MD #### CDP, RENP, UA #### [facility] [address] [place] [address] Service Shop Foreman: Sachin Reynolds MD Glucose Ql (U) Negative Normal NEG [facility] Comment on above: Performed By: #### F KLLC, URCRE, IFX, PHEP, URTP, ANASCN, C4, ANCACP, C3 #### [address] [address] Service Shop Foreman: Moustapha Irvin MD #### URIFX #### [address] [address] Service Shop Foreman: Moustapha Irvin MD [facility] [address] [place] [address] Service Shop Foreman: Sachin Reynolds MD #### CDP, RENP, UA #### [facility] [address] [place] [address] Service Shop Foreman: Sachin Reynolds MD Ketones Ql (U) Negative Normal NEG [facility] Comment on above: Performed By: #### F KLLC, URCRE, IFX, PHEP, URTP, ANASCN, C4, ANCACP, C3 #### [address] [address] Service Shop Foreman: Moustapha Irvin MD #### URIFX #### [address] [address] Service Shop Foreman: Moustapha Irvin MD [facility] [address] [place] [address] Service Shop Foreman: Sachin Reynolds MD #### CDP, RENP, UA #### [facility] [address] [place] [address] Service Shop Foreman: Sachin Reynolds MD Leukocyte esterase Test strip Ql (U) Negative Normal NEG [facility] Comment on above: Performed By: #### F KLLC, URCRE, IFX, PHEP, URTP, ANASCN, C4, ANCACP, C3 #### [address] [address] Service Shop Foreman: Moustapha Irvin MD #### URIFX #### [facility] [address] [place] [address] Service Shop Foreman: Moustapha Irvin MD [facility] [address] [place] [address] Service Shop Foreman: Sachin Reynolds MD #### CDP, RENP, UA #### [facility] [address] [place] [address] Service Shop Foreman: Sachin Reynolds MD Nitrite,Ur Negative Normal NEG [facility] Comment on above: Performed By: #### F KLLC, URCRE, IFX, PHEP, URTP, ANASCN, C4, ANCACP, C3 #### [facility] [address] [place] [address] Service Shop Foreman: Moustapha Irvin MD #### URIFX #### [address] [address] Service Shop Foreman: Mousatpha Irvin MD [facility] [address] [place] [address] Service Shop Foreman: Sachin Reynolds MD #### CDP, RENP, UA #### [facility] [address] [place] [address] Service Shop Foreman: Sachin Reynolds MD PH,Ur 6.0 Normal 5.0-8.0 [facility] Comment on above: Performed By: #### F KLLC, URCRE, IFX, PHEP, URTP, ANASCN, C4, ANCACP, C3 #### [facility] [address] [place] [address] Service Shop Foreman: Moustapha Irvin MD #### URIFX #### [address] [address] Service Shop Foreman: Moustapha Irvin MD [facility] [address] [place] [address] Service Shop Foreman: Sahcin Reynolds MD #### CDP, RENP, UA #### [facility] [address] [place] [address] Service Shop Foreman: Sachin Reynolds MD Protein Ql (U) Negative Normal NEG [facility] Comment on above: Performed By: #### F KLLC, URCRE, IFX, PHEP, URTP, ANASCN, C4, ANCACP, C3 #### [address] [address] Service Shop Foreman: Moustapha Irvin MD #### URIFX #### [address] [address] Service Shop Foreman: Moustapha Irvin MD [facility] [address] [place] [address] Service Shop Foreman: Sachin Reynolds MD #### CDP, RENP, UA #### [facility] [address] [place] [address] Service Shop Foreman: Sachin Reynolds MD Spec. [place],Ur 1.010 Normal 1.005-1.030 [facility] Comment on above: Performed By: #### F KLLC, URCRE, IFX, PHEP, URTP, ANASCN, C4, ANCACP, C3 #### [address] [address] Service Shop Foreman: Moustapha Irvin MD #### URIFX #### [address] [address] Service Shop Foreman: Moustapha Irvin MD [facility] [address] [place] [address] Service Shop Foreman: Sachin Reynolds MD #### CDP, RENP, UA #### [facility] [address] [place] [address] Service Shop Foreman: Sachin Reynolds MD Urobilinogen,Ur Normal Normal NORM [facility] Comment on above: Performed By: #### F KLLC, URCRE, IFX, PHEP, URTP, ANASCN, C4, ANCACP, C3 #### [facility] [address] [place] [address] Service Shop Foreman: Moustapha Irvin MD #### URIFX #### [facility] [address] [place], [place] [phone] Service Shop Foreman: Moustapha Irvin MD [facility] [address] [place], [place] [phone] Service Shop Foreman: Sachin Reynolds MD #### CDP, RENP, UA #### [facility] [address] [place], [place] [phone] Service Shop Foreman: Sachin Reynolds MD CHEMISTRYOrdered By: SYSTEM SYSTEM on 11-19-2022 Albumin [Mass/Vol] 3.9 g/dL Normal 3.3 - 5.0 gm/dL F [facility] Remisol Albumin/Globulin [Mass ratio] 1.1 {ratio} Normal 1.1 - 2.2 [facility] ALP [Catalytic activity/Vol] 61 [iU]/d Normal 21 - 98 Int._Unit/L [facility] ALT No additional P-5'-P [Catalytic activity/Vol] 24 [iU]/d Normal 6 - 46 Int._Unit/L [facility] Anion gap [Moles/Vol] 9 mmol/L Normal 6 - 16 mEq/L [facility] AST [Catalytic activity/Vol] 26 [iU]/d Normal 5 - 43 Int._Unit/L [facility] Bilirubin [Mass/Vol] 0.3 mg/dL Normal 0.0 - 1.1 mg/dL [facility] Calcium [Mass/Vol] 9.2 mg/dL Normal 8.9 - 11.1 mg/dL [facility] Chloride [Moles/Vol] 106 mmol/L Normal 101 - 111 mmol/ L [facility] CO2 [Moles/Vol] 27 mmol/L Normal 21 - 31 mmol/L [facility] Creatinine [Mass/Vol] 1.7 mg/dL High 0.5 - 1.3 mg/dL [facility] GFR/1.73 sq M.predicted among non-blacks MDRD (S/P/Bld) [Vol rate/Area] 48 mL/min/1.73 m2 Low >=59mL/min/1.73 m2 [facility] Chem S Globulin (S) [Mass/Vol] 3.6 g/dL Normal 1.4 - 4.0 gm/dL [facility] Glucose [Mass/Vol] 92 mg/dL Normal 55 - 199 mg/dL [facility] Potassium [Moles/Vol] 4.1 mmol/L Normal 3.5 - 5.3 mmol/L [facility] Prostate specific Ag [Mass/Vol] 0.9 ng/mL Normal 0.1 - 3.5 ng/mL [facility] Protein [Mass/Vol] 7.5 g/dL Normal 6.0 - 7.8 gm/dL F [facility] Remisol Sodium [Moles/Vol] 138 mmol/L Normal 135 - 145 mmol/L [facility] Urea nitrogen [Mass/Vol] 14 mg/dL Normal 5 - 21 mg/dL [facility] Urea nitrogen/Creatinine [Mass ratio] 8 mg/mg Low 10 - 20 [facility] HEMATOLOGYOrdered By: SYSTEM SYSTEM on 11-19-2022 Basophils/100 WBC (Bld) 1.1 % Normal 0.0 - 2.0 % [facility] Basophils/Leukocytes Auto (Bld) [Pure # fraction] 0.1 E9/L Normal 0.0 - 0.2 E9/L [facility] Eosinophils/100 WBC (Bld) 5.3 % Normal 0.0 - 8.0 % [facility] Eosinophils/Leukocyt es Auto (Bld) [Pure # fraction] 0.4 E9/L Normal 0.0 - 0.5 E9/L [facility] Lymphocytes/100 WBC (Bld) 50.0 % Normal 14.0 - 50.0 % [facility] Lymphocytes/Leukocyt es Auto (Bld) [Pure # fraction] 3.6 E9/L Normal 1.0 - 4.0 E9/L [facility] Monocytes/100 WBC (Bld) 8.0 % Normal 4.0 - 14.0 % [facility] Monocytes/Leukocytes Auto (Bld) [Pure # fraction] 0.6 E9/L Normal 0.2 - 1.0 E9/L [facility] Neutrophils/100 WBC (Bld) 35.6 % Low 36.0 - 75.0 % [facility] Neutrophils/Leukocyt es Auto (Bld) [Pure # fraction] 2.5 E9/L Normal 2.0 - 7.5 E9/L [facility] HEMATOLOGYOrdered By: Monae Villarreal on 11-19-2022 Erythrocyte distribution width (RBC) [Ratio] 14.2 % Normal 10.9 - 14.2 % [facility] Hematocrit (Bld) [Volume fraction] 42.0 % Normal 37.7 - 49.0 % [facility] Hemoglobin (Bld) [Mass/Vol] 13.5 g/dL Normal 13.5 - 17.5 gm/dL [facility] MCH (RBC) [Entitic mass] 30.2 pg Normal 27.0 - 34.0 pg [facility] MCHC (RBC) [Mass/Vol] 32.0 g/dL Normal 31.4 - 36.0 gm/dL [facility] MCV (RBC) [Entitic vol] 94.2 fL Normal 80.0 - 100.0 fL [facility] Platelet mean volume (Bld) [Entitic vol] 7.0 fL Normal 6.4 - 10.8 fL [facility] Platelets (Bld) [#/Vol] 328.0 E9/L Normal 150.0 - 500.0 E9/L [facility] RBC (Bld) [#/Vol] 4.5 E12/L Normal 4.3 - 5.9 E12/L [facility] WBC corrected for nucl RBC Auto (Bld) [#/Vol] 7.1 E9/L Normal 4.0 - 11.0 E9/L [facility] Miscellaneouson 07-30-2022 Test Name Rapid Plasma Reagin (RPR) with Reflex to Titer, SERUM, ARUP [id number] Normal [facility] Comment on above: Performed By: #### F KLLC, URCRE, IFX, PHEP, URTP, ANASCN, C4, ANCACP, C3 #### [facility] [address] [place] [address] Service Shop Foreman: Moustapha Irvin MD #### URIFX #### [facility] [address] [place] [address] Service Shop Foreman: Moustapha Irvin MD [facility] [address] [facility] [place] [address] Service Shop Foreman: Sachin Reynolds MD #### LIUDMILA, ANITRA, UA #### [facility] [address] [place] [address] Service Shop Foreman: Sachin Reynolds MD HIV Ag/Abon 07-27-2022 HIV Ag/Ab Non-Reactive Normal NR [facility] Comment on above: Result Comment: No l aboratory evidence of HIV infection. If acute HIV infection is suspected, consider testing for HIV-1 RNA. Performed By: #### F KLLC, URCRE, IFX, PHEP, URTP, ANASCN, C4, ANCACP, C3 #### [address] [address] Service Shop Foreman: Moustapha Irvin MD #### URIFX #### [address] [address] Service Shop Foreman: Moustapha Irvin MD [facility] [address] [place] [address] Service Shop Foreman: Sachin Reynolds MD #### CDP, ISIDROP, UA #### [facility] [address] [place] [address] Service Shop Foreman: Sachin Reynolds MD T.Pall confirm,TPPAon 2022 T.Pall confirm,TPPA Reactive Abnormal NR [facility] Comment on above: Result Comment: T.pallidum Ab Screen: POSITIVE VDRL, Quantitative: NEGATIVE T.pallidum,TPPA: POSITIVE Possible syphilis (latent) or previously treated syphilis. Persons with a history of previous treatment will require no further management unless reexposure is suspected. In this instance, a repeat VDRL Titer in 2-4 weeks is recommended to evaluate for early infection. Those without a history of treatment for syphilis should be offered treatment. Unless history or physical findings suggest a recent infection, previously untreated persons should be treated for latent syphilis. Results reported to the appropriate Health Department Performed By: #### F KLLC, URCRE, IFX, PHEP, URTP, ANASCN, C4, ANCACP, C3 #### [facility] [address] [place] [address] Service Shop Foreman: Moustapha Irvin MD #### URIFX #### [address] [address] Service Shop Foreman: Moustapha Irvin MD [facility] [address] [place] [address] Service Shop Foreman: Sachin Reynolds MD #### CDP, ANITRA, UA #### [facility] [address] [place] [address] Service Shop Foreman: Sachin Reynolds MD T.pallidum Ab Screenon 07-27 T.pallidum Ab Screen Reactive Abnormal NR [facility] Comment on above: Result Comment: Detection of T. pallidum antibodies may indicate recent, remote or previously treated infections. A positive serological test for syphilis is not diagnostic of infection, as false positives occur and become more likely in low prevalence populations. Confirmatory test will be performed (VDRL, Quantitative). Results reported to the appropriate Health Department Performed By: #### F KLLC, URCRE, IFX, PHEP, URTP, ANASCN, C4, ANCACP, C3 #### [facility] [address] [place] [address] Service Shop Foreman: Moustapha Irvin MD #### URIFX #### [facility] [address] [place] [address] Service Shop Foreman: Moustapha Irvin MD [facility] [address] [place] [address] Service Shop Foreman: Sachin Reynolds MD #### CDP, RENP, UA #### [facility] [address] [place] [address] Service Shop Foreman: Sachin Reynolds MD VDRL, Quantitativeon 023 VDRL, Quantitative Non-Reactive Normal NR [facility] Comment on above: Result Comment: T.pallidum Ab Screen: POSITIVE VDRL, Quantitative: NEGATIVE TPPA will be performed. Performed By: #### F KLLC, URCRE, IFX, PHEP, URTP, ANASCN, C4, ANCACP, C3 #### [address] [address] Service Shop Foreman: Moustapha Irvin MD #### URIFX #### [address] [address] Service Shop Foreman: Moustapha Irvin MD [facility] [address] [place] [address] Service Shop Foreman: Sachin Reynolds MD #### CDP, ISIDROP, UA #### [facility] [address] [facility] [place] [address] Service Shop Foreman: Sachin Reynolds MD HIV Screenon 07-26-2022 HIV Ag/Ab Non-Reactive NONREACTIVE [facility] Comment on above: No laboratory eviden ce of HIV infection. If acute HIV infection is suspected, consider testing for HIV-1 RNA. [facility] Hepatic Function Panelon Albumin [Mass/Vol] 4.5 g/dL 3.5 - 5.2 g/dL [facility] ALP (Bld) [Catalytic activity/Vol] 73 U/L 40 - 129 U/L [facility] ALT [Catalytic activity/Vol] 18 U/L 5 - 41 U/L [facility] AST [Catalytic activity/Vol] 19 U/L NINF - 40 U/L [facility] Bilirubin [Mass/Vol] 0.3 mg/dL 0.3 - 1.2 mg/dL [facility] Bilirubin, Indirect Can not be calculated 0.0 - 1.0 mg/dL [facility] Bilirubin.indirect [Mass/Vol] mg/dL NINF - 0.3 mg/dL [facility] Protein [Mass/Vol] 7.7 g/dL 6.4 - 8.3 g/dL [facility] Liver Profileon 07-26-2022 Albumin [Mass/Vol] 4.5 g/dL Normal 3.5-5.2 [facility] Comment on above: Performed By: #### F KLLC, URCRE, IFX, PHEP, URTP, ANASCN, C4, ANCACP, C3 #### [address] [address] Service Shop Foreman: Moustapha Irvin MD #### URIFX #### [address] [address] Service Shop Foreman: Moustapha Irvin MD [facility] [address] [place] [address] Service Shop Foreman: Sachin Reynolds MD #### ANITRA NUR UA #### [facility] [address] [place] [address] Service Shop Foreman: Sachin Reynolds MD Alkaline Phos 73 U/L Normal 40-129 [facility] Comment on above: Performed By: #### F KLLC, URCRE, IFX, PHEP, URTP, ANASCN, C4, ANCACP, C3 #### [facility] [address] [place] [address] Service Shop Foreman: Moustapha Irvin MD #### URIFX #### [address] [address] Service Shop Foreman: Moustapha Irvin MD [facility] [address] [place] [address] Service Shop Foreman: Sachin Reynodls MD #### CDP, RENP, UA #### [facility] [address] [place] [address] Service Shop Foreman: Sachin Reynolds MD ALT [Catalytic activity/Vol] 18 U/L Normal 5-41 [facility] Comment on above: Performed By: #### F KLLC, URCRE, IFX, PHEP, URTP, ANASCN, C4, ANCACP, C3 #### [facility] [address] [place] [address] Service Shop Foreman: Moustapha Irvin MD #### URIFX #### [address] [address] Service Shop Foreman: Moustapha Irvin MD [facility] [address] [place] [address] Service Shop Foreman: Sachin Reynolds MD #### CDP, RENP, UA #### [facility] [address] [place] [address] Service Shop Foreman: Sachin Reynolds MD AST [Catalytic activity/Vol] 19 U/L Normal <40 [facility] Comment on above: Performed By: #### F KLLC, URCRE, IFX, PHEP, URTP, ANASCN, C4, ANCACP, C3 #### [facility] [address] [place] [address] Service Shop Foreman: Moustapha Irvin MD #### URIFX #### [address] [address] Service Shop Foreman: Moustapha Irvin MD [facility] [address] [place] [address] Service Shop Foreman: Sachin Reynolds MD #### CDP, RENP, UA #### [facility] [address] [place] [address] Service Shop Foreman: Sachin Reynolds MD Bilirubin [Mass/Vol] 0.3 mg/dL Normal 0.3-1.2 [facility] Comment on above: Performed By: #### F KLLC, URCRE, IFX, PHEP, URTP, ANASCN, C4, ANCACP, C3 #### [address] [address] Service Shop Foreman: Moustapha Irvin MD #### URIFX #### [address] [address] Service Shop Foreman: Moustapha Irvin MD [facility] [address] [place] [address] Service Shop Foreman: Sachin Reynolds MD #### CDP, RENP, UA #### [facility] [address] [place] [address] Service Shop Foreman: Sachni Reynolds MD Bilirubin, Indirect Can not be calculated Normal 0.0-1.0 [facility] Comment on above: Performed By: #### F KLLC, URCRE, IFX, PHEP, URTP, ANASCN, C4, ANCACP, C3 #### [address] [address] Service Shop Foreman: Moustapha Irvin MD #### URIFX #### [address] [address] Service Shop Foreman: Moustapha rIvin MD [facility] [address] [place] [address] Service Shop Foreman: Sachin Reynolds MD #### CDP, RENP, UA #### [facility] [address] [place] [address] Service Shop Foreman: Sachin Reynolds MD Bilirubin.indirect [Mass/Vol] mg/dL Normal <0.3 [facility] Comment on above: Performed By: #### F KLLC, URCRE, IFX, PHEP, URTP, ANASCN, C4, ANCACP, C3 #### [address] [place] [address] Service Shop Foreman: Moustapha Irvin MD #### URIFX #### [address] [address] Service Shop Foreman: Moustapha Irvin MD [facility] [address] [place] [address] Service Shop Foreman: Sachin Reynolds MD #### LIUDMILA, ANITRA, UA #### [facility] [address] [place] [address] Service Shop Foreman: Sachin Reynolds MD Protein [Mass/Vol] 7.7 g/dL Normal 6.4-8.3 [facility] Comment on above: Performed By: #### F KLLC, URCRE, IFX, PHEP, URTP, ANASCN, C4, ANCACP, C3 #### [address] [address] Service Shop Foreman: Moustapha Irvin MD #### URIFX #### [address] [address] Service Shop Foreman: Moustapha Irvin MD [facility] [address] [place] [address] Service Shop Foreman: Sachin Reynolds MD #### LIUDMILA, ISIDROP, UA #### [facility] [address] [place] [address] Service Shop Foreman: Sachin Reynolds MD T. pallidum Abon 07-26-2022 Interpretation and review of laboratory results Abnormal [facility] T. pallidum, IgG Reactive Abnormal NONREACTIVE [facility] Comment on above: Detection of T. pallidum antibodies may indicate recent, remote or previously treated infections. A positive serological test for syphilis is not diagnostic of infection, as false positives occur and become more likely in low prevalence populations. Confirmatory test will be performed (VDRL, Quantitative). Results reported to the appropriate Health Department [facility] Coding Summary.on 06-23-2022 Coding Summary. [id number] XEe4kUc+PGhlYWQ+PE1 HLFZnS51exGJdcP2EQ7 rGXT7VGXSTHYUXLH5XA B5vvDD0SOiuO3YkliJu ZnxckADvTV91LHb1NVO 3fFdfMFxndZ8pvZBkU2 h0RaWpYA35rE16MUyxC QQoIoX2DfCipriosXGg B0wmRtPsqNPkDie+PHR hYmxlIHdpZHRoPScxMD UnIlXzsHqtGI0iSu7hD GVyLWNvbGxhcHNlOiBj a3rxILAwOXiuDZ9bqGn uW3VwkFK7YGQvw9i4Jd 48dHI+EVYzAYS4oDwwQ Wumz039VgEsq0wtICX5 xRLiYDudHBZ3Y10fj1U 0FZRsYXBgVOU0kZJ0hM 4egYusxtokX1QdvCDnU mD5FRE2nCRviO8vfCxp oybvmR3uGiy+F68CRU0 TXUIOAO6TRft6J2JjXq wvdHI+GN50GAQeUI39w FCrtQLqr5ovjGr7BpAy QOWgTMA4pSwbOLedm2B oXVLlZ03rtDKrh2U8XL JtcYsaxIVxIoDayOX6z C5zHPsgllftr4otasbg Rbkkh4ltoe76aO49D73 vZPekUPNzEUU8DGFeVP LybQojhd4tkS9qWj4+I Sdxm0mqn9zxpEd4LdRi ZKFygqZwjMutGTV8s5G yKs42E4EwaYxom2FbIm d1fz15cSHft8S6yDI4P NtwSPNlqT0ySBhcQpR6 MLZhBzHgfX86aILcAHw cDb1reWwtnGqgCB1cIC RwjdxlCQHzlY1eFORjw RNsrYdcGK2iRXGmdfur b723XhXmHQJ9JQBiqFJ aV7OrwT1uHmNkDDAzWR TsW8CevXGmUYrzS478K LweNtQ9JHPkhlHoA4Ia NQZseHneBhM4s3H0Cp2 Qk3PpkrevPWE2JXavST LoJrK9WxUiEmY2M1ElP xr4UIGiwBtbUO7cR7Tb YNOzadbzxfuzhQO6ABQ yDMVqfA91fARoWCmyBf 9em8T1d793VBGiBHYsz D93Es6quCpgAUOzeMNX tP1lghrvk1ifvjdwHpA jFAJiUUi4LLm4YKMimQ nyBvDxTJV9BuX1UOK6u FNcfS8zfQtjqpnxfF8c Oyc+E72tsS2tWVE2WMR 8wrulMLQptoXoDA67VG 29G3AuTriviXJnzTP+P ZXxsbPojCorJB6yOaEs m5wjp9UrYMtbP0ClBTG iUWunOxz4MYYyIFL9sN W2lX5qICToHTqqa9Z4q GR7I1EnlzDzeo7kg2yy XFXbMOzrK71coIVgx3H 9UXRieFJ6RUYkkIhlVc KfeT16Ymv+PGNvbGdyb 1VuMjjde5obi8powPh4 IjMwJSIgdmFsaWduPSJ 0f9EhEx04S07cLYcjTU RoPSIxNSUiIHZhbGlnb q1ozI5aLe2+PGNvbCB3 xBP1fT8gLAHqGoI5DSp fF451UgGieKUuKzlkk9 xzk5vxmZt6AmYkTAAei lSbpRbnWEJ1y0QtVk33 I18sYHkuVDTpCUBvUEB eMERkbFuwzp2hxF3rGg 8+VV8by1diag26cD75m HI+UUXtTOE2hGubNSgv SMEtoJ1fGGqrDnV7BBQ sTiNpkQ22qGZoBEsmIg 1ssYfffBzkFD7tSTEwt fiig909HiAis6ydYAZz nKWfUTjyGAU1I97mk8F 2DBUrOVUoFMS4vQN0cO 1hbGlnbjogbGVmdDsgd aQtoKrtXYsjYWozK361 IHRvcDsnPlBhdGllbnQ vHnCeSAm2H5QsCtr5HF CzcLlhUL6haVNsVBuxD f6wnDvchBfoCR4gEALo fmyfr753WkIsy7xiGLR nuISoEDupRTE0H60nt5 U9VEUvYRFkZGE5aMF8a I4okInhcvzenGZzmOag jmSvhVelXPjzCQkbY12 6IHRvcDsnPkJpcnRoIE MupYM0NF51AV01dACgt 9E7kHX1K6ZkQARnybub jkbqiJS6ZJMmLQPjcK1 6Vz4xhTixYy8zEEGjHO Y5BYZooYVbN1ZxpA8sW sAxVMUzUDGvS8OtgALp QCyxL041RSkeAbW3XUN odyAsU9ZqJCUucHreKg K1e5U5Wl8VK2B4LW01Z A77oDNcn4L5jAP0L9Ez XKOpavjqhenzfLO3WJR lNNNhxE30Vp0cgByuPz 8eCBYqPBF2EAYljIZyX 9NbdO0tVtZmCZCiARXs V3KuqIHyQYpoD317KUk bNkK1WSGyvcRdS2MvKW GxrTdeGvR7f9B4Fp7FA Gp5RL35VP87sQKim7M4 oDY3V4HpDCSvymtfyxb mmLO0PLDeNPXvqS84Yd 3neEwvZm8bGSLdULE9G XYssWLgI0IirR7pWfYo FWJcAELeM5KjiYYrSEf pF441HBkcHiK4AYGlsl ZgJ8DxAZZnpWxoErI5v 3T3Lz3BFPLlIY97TPQ6 cMB7UE12AA08Z6YcXuh vdGFibGU+PHRhYmxlIH dpZHRoPScxMDAlJyBzd VgzGM0lRi5pTAJrWZNc oQsxeNCdXdRab5tdQEY hPZoeQG0woDpgC1BgsF O0ZDHik0v3Xx66W63fQ 3JvdXA+XIZthKG0uLG1 mA9nSpLaQzN0EWerE49 0XuVddAGdTifvp3fti0 ygeAh2YmF4VZDtezSoa KezGYP6o2NcNo61L84l IHdpZHRoPSIxNSUiIHZ ozKtybh7zrO1rEs0+PG XvdRT8dBV9jM7vYrBrS hO4QJnmV561CgQxsVEc Lpand5xsk3qacMx2RuA gSHWkiiLslJmrVTL6g3 QiGm62R6HxpEabg5RjD lx9qt08qXAik2Y8uGY7 K2HfGSXqxznwjUUxoDg hWZ3qUGAtgrikOYCsbC 3eTUVvG3h4OqPxZxO2C SmzT1WhqmE8VMXamRDb HGbkAWL0D61su4Y3TNJ wCEJaKGL6aTV2jM9zhT lnbjogbGVmdDsgdmVyd WjqGCjeLVpxD189PEDb mMhaODRyvR5iQKRcwQQ fkPtcBY0mYFDkltjtHc UPFQHZK00uDICXEmZLG 1j2K3JpLzb7CXClaXod JN4vpNTcOCgnIt3ozWi ncDyeCF2gIIYvlgykKR QkyV1mFHTmsBTcsQivD H2sNUNtyflkv565QuJu SFA0QEHtkBOdB0KagG0 hRxVbUHHfWJOpB7JysV HqWOlcO523NAjzWmV1L QKhxzOuA2ZfRMMxsBoz BpD7y7N0Gu3lOY4aZJ5 lQZxhOJ87CY10iGJqy1 Y4fXW3N0AkDUXaanlsc vrzkGH4TSXlFKGbwC49 eUHqKSiwHb6uk7R6t53 4QOCpATIigG52Xk4nlN tbMQQkwHEGmO0ugfnvu 5ktbrmdDgLsAKNeCSr9 IYn0XJKmiOuoCvBwBFO 1KkN0DOA0vVLeiW6wpZ wwgvtevD6aNqb+NTEgW ILdnkH8G8EsYbi0YPRr xAahZP0irHJxLQmuSy6 haOrogUqdTG5mKNTxfh jkLSMjnM8iUTBxsAHwh QszJD0mVOVzriczo874 JfQcGVI5GOBrbWJhP6T hrG4bJqFpAMMtZMNbY1 MrjMWpKVgkB235XHanD cX8DENgopTbJ6AsFSQo tMgzOdF8k1O8Cy7XHLa tKS51AA07kBSyd8J2wX S2H2QsSIRpwgglctzvn MC8YJUuVILuvG32eSPn CExqBk0sx4J8f698PSO xNJRfjQ75Rz1srLcnYT GzmALVwA7yluefl8gdw xcvIbDqYNSnZKk6DWv6 QRAzpUorEjJcXOO0ElC 3KUF6jLHrxI3wlBeyur lwdL0xEwh+PU2wccbrk jQ4LO99JR63A1OnIsii dGFibGU+PHRhYmxlIHd pZHRoPScxMDAlJyBzdH pkZH5yTv5uQJAwDDVtl JzuxIKjFxRlg5qyCCFc IJspEN5pdAsfI9GjvHN 1MSYwq6k4Sq20O29eJ5 JvdXA+EHUvbVW4eKS9c L2aRzQiPtL0HLkyO764 ExJtmOIlXdpub9jca1o xpQk8GqItCRQpqnOrdN umUPV7v0WjFd66U89cZ HdpZHRoPSIyMCUiIHZh tKocfv2piC8yKj3+PGN reJE0eLU5qP7eNuAsLm R5DSqpI853AlQcmKRjR fbcE62oV5NkbOH+PHRy Gce7HGElvPxnYC7bcWU mPXnnYv5iLRW9AvRxUo VoUKmhN9GyEWJgyaeug ijakMG7IWTxHWAqyR89 Cm3xkZdmAm7jFXQdGYF 0INOkqXGfH3XtxT7mCh MgZTFuIKIiK6PvyMTyJ IkgF449RDwrBaO7GOYa akOqT9MiPDEktKhcRgO 3k9D0Ba1QpTbtwXNxKY 9mGiXvUGj0O9VwMob7C NQwcGjhTS7juDShPUdv Xr9qaWewdBytOQ9zUGD acvlix844CdEra1djLL GiqXUeMOtrUWZ6P40lm 0H5QPIhOZJfCYZ0uHY9 lE3irFjotfocgQNxzRv gdmVydGljYWwtYWxpZ2 85XVSuxNghDcZLZoe3N 1DgLei7CDZadWbaVZ2n hUJiAHuzEa0bxUktbYp xSX9pXVDudfcxu002Qa Lxq3ibEPKniKHuXGnuR DB4N89vf7K9UZFhHUBg GZP8kTS1tC6weFhoavb gbGVmdDsgdmVydGljYW ckJEcaC654LTHnsTjjI e1ARri9X8TxPhe6HOLg fAexKP1gvHKiQRvtBq8 pjErajGplMV7rHKPrkp joo438AdTxh2pnRXKmy EAvRNmuPMY1H38kr2S4 OOZiKHEjDCR3sGJ5hO3 hbGlnbjogbGVmdDsgdm VajLuxNEkrKSfeA533R HRvcDsnPlBheWVyOjwv dGQ+KD43bh76T4CuBng gNni0RMHvOCC6iFK8lY 7vDVIdCWhct4W9lTW6D 2OxjnJoqc8xf9jvWKOq ZTog (more content not included)... Normal [facility] Auto Diffon 06-20-2022 Basophils/100 WBC (Bld) 1.5 % Normal 0.0-2.0 [facility] Comment on above: Order Comment: Order Added by Discern Expert. Performed By: #### 2 500227, 8657527, 3862222, 21345581, 7126597 #### [facility] [address] [place] [address] Basophils/Leukocytes Auto (Bld) [Pure # fraction] 0.1 E9/L Normal 0.0-0.2 [facility] Comment on above: Order Comment: Order Added by Discern Expert. Performed By: #### 2 008724, 2277881, 8641951, 22583504, 8590430 #### [facility] [address] [place] [address] Eosinophils/100 WBC (Bld) 3.2 % Normal 0.0-8.0 [facility] Comment on above: Order Comment: Order Added by Discern Expert. Performed By: #### 2 303795, 8182345, 2033142, 96408596, 1646869 #### [facility] [address] [place] [address] Eosinophils/Leukocyt es Auto (Bld) [Pure # fraction] 0.3 E9/L Normal 0.0-0.5 [facility] Comment on above: Order Comment: Order Added by Discern Expert. Performed By: #### 2 588425, 5136634, 4215761, 28768614, 3520333 #### [facility] [address] [place] [address] Lymphocytes/100 WBC (Bld) 33.9 % Normal 14.0-50.0 [facility] Comment on above: Order Comment: Order Added by Zack Expert. Performed By: #### 2 528712, 7261574, 3726464, 84535220, 9893654 #### [facility] [address] [place] [address] Lymphocytes/Leukocyt es Auto (Bld) [Pure # fraction] 2.9 E9/L Normal 1.0-4.0 [facility] Comment on above: Order Comment: Order Added by Discern Expert. Performed By: #### 2 103207, 4681425, 7800915, 13195104, 9122787 #### [facility] [address] [place] [address] Monocytes/100 WBC (Bld) 10.5 % Normal 4.0-14.0 [facility] Comment on above: Order Comment: Order Added by Zack Expert. Performed By: #### 2 555133, 2061841, 0187357, 62676485, 4711270 #### [facility] [address] [place] [address] Monocytes/Leukocytes Auto (Bld) [Pure # fraction] 0.9 E9/L Normal 0.2-1.0 [facility] Comment on above: Order Comment: Order Added by Zack Expert. Performed By: #### 2 312291, 8827363, 0248741, 63269250, 6452908 #### [facility] [address] [place] [address] Neutrophils/100 WBC (Bld) 50.9 % Normal 36.0-75.0 [facility] Comment on above: Order Comment: Order Added by Zack Expert. Performed By: #### 2 084393, 8188463, 6850439, 89065965, 0296267 #### [facility] [address] [place] [address] Neutrophils/Leukocyt es Auto (Bld) [Pure # fraction] 4.3 E9/L Normal 2.0-7.5 [facility] Comment on above: Order Comment: Order Added by Zack Expert. Performed By: #### 2 965634, 8129858, 4218625, 33072741, 0163926 #### [facility] [address] [place] [address] BMPon 06-20-2022 Creatinine [Mass/Vol] 1.6 mg/dL High 0.5-1.3 [facility] Comment on above: Performed By: #### 2 982720, 1889248, 1724052, 57739172, 3547569 #### [facility] [address] [place] [address] Urea nitrogen [Mass/Vol] 12 mg/dL Normal 5-21 [facility] Comment on above: Performed By: #### 2 066321, 5497328, 6724153, 59945610, 0444154 #### [facility] [address] [place] [address] Urea nitrogen/Creatinine [Mass ratio] 8 No Units Low 10-20 [facility] Comment on above: Performed By: #### 2 399250, 9434193, 6113310, 06822018, 2424042 #### [facility] [address] [place] [address] Anion gap [Moles/Vol] 14 mmol/L Normal 6-16 [facility] Comment on above: Performed By: #### 2 161549, 8411507, 3138157, 22212912, 3798689 #### [facility] [address] [place] [address] Calcium [Mass/Vol] 9.7 mg/dL Normal 8.9-11.1 [facility] Comment on above: Performed By: #### 2 832141, 3269870, 3862455, 27830540, 6082424 #### [facility] [address] [place] [address] Chloride [Moles/Vol] 100 mmol/L Low 101-111 [facility] Comment on above: Performed By: #### 2 853983, 5611016, 6789497, 01571622, 5258698 #### [facility] [address] [place] [address] CO2 [Moles/Vol] 27 mmol/L Normal 21-31 [facility] Comment on above: Performed By: #### 2 881059, 9458919, 1060645, 24850715, 6169112 #### [facility] [address] [place] [address] Glucose [Mass/Vol] 108 mg/dL Normal 55-199 [facility] Comment on above: Result Comment: If t his glucose result represents a fasting glucose, interpretation should refer to the following reference range: 55-99 mg/dL Performed By: #### 2 056576, 7378314, 0192001, 94637997, 9294969 #### [facility] [address] [place] [address] Potassium [Moles/Vol] 3.7 mmol/L Normal 3.5-5.3 [facility] Comment on above: Performed By: #### 2 131324, 0522551, 4064520, 98937118, 7627760 #### [facility] [address] [place] [address] Sodium [Moles/Vol] 137 mmol/L Normal 135-145 [facility] Comment on above: Performed By: #### 2 127751, 8432218, 1387656, 89949168, 0855500 #### [facility] [address] [place] [address] CBC w/ Auto Diffon Erythrocyte distribution width (RBC) [Ratio] 13.8 % Normal 10.9-14.2 [facility] Comment on above: Performed By: #### 2 808349, 1252883, 0769749, 10172180, 7537646 #### [facility] [address] [place] [address] Hematocrit (Bld) [Volume fraction] 41.7 % Normal 37.7-49.0 [facility] Comment on above: Performed By: #### 2 899747, 1608546, 4735693, 95512768, 0950189 #### [facility] [address] [place] [address] Hemoglobin (Bld) [Mass/Vol] 14.3 g/dL Normal 13.5-17.5 [facility] Comment on above: Performed By: #### 2 550351, 9152036, 2542500, 86858331, 9350882 #### [facility] [address] [place] [address] MCH (RBC) [Entitic mass] 31.2 pg Normal 27.0-34.0 [facility] Comment on above: Performed By: #### 2 191272, 0841116, 6003875, 58145679, 7725783 #### [facility] [address] [place] [address] MCHC (RBC) [Mass/Vol] 34.4 g/dL Normal 31.4-36.0 [facility] Comment on above: Performed By: #### 2 148187, 4328207, 3869207, 50708547, 7206172 #### [facility] [address] [place] [address] MCV (RBC) [Entitic vol] 90.7 fL Normal 80.0-100.0 [facility] Comment on above: Performed By: #### 2 342526, 9089131, 1275741, 04939935, 5396630 #### [facility] [address] [place] [address] Platelet mean volume (Bld) [Entitic vol] 6.6 fL Normal 6.4-10.8 [facility] Comment on above: Performed By: #### 2 585583, 7470339, 9256759, 33912991, 2810026 #### [facility] [address] [place] [address] Platelets (Bld) [#/Vol] 423.0 E9/L Normal 150.0-500.0 [facility] Comment on above: Performed By: #### 2 395621, 8193342, 0265113, 72218768, 8274115 #### [facility] [address] [place] [address] RBC (Bld) [#/Vol] 4.6 E12/L Normal 4.3-5.9 [facility] Comment on above: Performed By: #### 2 675394, 0017114, 8531203, 64175766, 5446679 #### [facility] [address] [place] [address] WBC corrected for nucl RBC Auto (Bld) [#/Vol] 8.4 E9/L Normal 4.0-11.0 [facility] Comment on above: Performed By: #### 2 665282, 2821087, 6134391, 55069267, 4304148 #### [facility] [address] [place] [address] Consent for Treatmenton Consent for Treatment [id number] EA#1.00CD:127 Normal [facility] Discharge Instructionson Discharge Instructions [id number]#1.00CD:127 Normal [facility] ED Clinical Summaryon 2021 ED Clinical Summary [address] [address] ED Clinical Summary Person Information Name: GABRIELA FUENTES/[facility] Age: 51 Years : 1970 Sex: Male Language: Ukrainian PCP: Julien CONTRERAS DO Marital Status: Single Visit Id: Visit Reason: Wound infection - uncomplicated; Toe pain-swelling; Foot pain-swelling; RIGHT FOOT SWOLLEN Speciality: Acuity: 3 Enc Type: Emergency Med Service: Emergency Arrival: 06/20/2022 11:58:55 Discharge: 06/20/2022 14:07:01 LOS: 000 02:09 Checkin: 06/20/2022 11:58:55 Checkout: 06/20/2022 14:07:01 Dispo Type: Home (Routine DC) EVENTS: Event Name Event Status Request Date/Time Start Date/Time Complete Date/Time Arrive Complete 06/20/2022 11:58:55 06/20/2022 11:58:55 06/20/2022 11:58:55 Document Home Meds Request 06/20/2022 11:58:55 Triage Complete 06/20/2022 11:58:55 06/20/2022 12:07:43 06/20/2022 12:07:43 Bed Assign Complete 06/20/2022 12:02:39 06/20/2022 12:02:39 06/20/2022 12:02:39 Dr Exam Complete 06/20/2022 12:02:39 06/20/2022 12:03:37 06/20/2022 12:03:37 RN Exam Complete 06/20/2022 12:02:39 06/20/2022 13:32:30 06/20/2022 13:32:30 Registration Complete 06/20/2022 12:03:37 06/20/2022 12:06:42 06/20/2022 12:06:42 Reg Complete Request 06/20/2022 12:06:42 Dr Exam Complete 06/20/2022 12:07:57 06/20/2022 12:07:57 06/20/2022 12:07:57 Registration Request 06/20/2022 12:07:57 X-Ray Complete 06/20/2022 12:18:35 06/20/2022 12:35:14 06/20/2022 12:35:55 Pending Labs Inlab 06/20/2022 12:18:35 Lab Inlab 06/20/2022 12:18:35 Wet Read Request 06/20/2022 12:35:55 Pending Labs Complete 06/20/2022 12:38:17 06/20/2022 12:38:17 06/20/2022 12:51:43 Lab Complete 06/20/2022 12:38:17 06/20/2022 12:38:17 06/20/2022 12:51:43 Pending Labs Complete 06/20/2022 12:42:46 06/20/2022 12:42:46 06/20/2022 12:42:53 Lab Complete 06/20/2022 12:42:46 06/20/2022 12:42:46 06/20/2022 12:42:53 Meds Admin Complete 06/20/2022 13:06:38 06/20/2022 13:16:25 Pending Labs Complete 06/20/2022 13:57:44 06/20/2022 13:57:44 06/20/2022 13:57:44 Discharge Complete 06/20/2022 13:59:29 06/20/2022 14:07:09 06/20/2022 14:07:09 Transfer Complete 06/20/2022 14:07:09 06/20/2022 14:07:09 06/20/2022 14:07:09 ADDRESS: [address] [place] [address] [address] [place] [id number] PHYS DOC NOTES: MEDICAL INFORMATION: Prescriptions Given: New Medications [id number], [address], [place] [id number], [phone] clindamycin (clindamycin 300 mg oral cap) 1 Capsules By Mouth every 6 hours for 7 Days. Refills: 0. PATIENT EDUCATION INFORMATION: Instructions: Acute Kidney Injury, Adult; Cellulitis, Adult, Koyl-[id number] Follow up: With: Address: When: Marco A Curry [facility]: c/o [facility], [address] [place] [address], [place] [address] In 3 days 06/23/2022 Comments: Follow-up with your aws developer. If symptoms do not improve, you may report to the emergency department. He does not have a aws developer he may follow-up with Dr. Curry. With: Address: When: Julien DIANE [address] [place] [address] Business (1) In 3 days 06/23/2022 Comments: Follow-up with your primary care provider in 3 to 5 days. If symptoms worsen, do not improve, or new symptoms arise please report back to emergency department for further evaluation. DIAGNOSIS: PINEDA (acute kidney injury); Cellulitis of right foot Normal [facility] ED Note-Physicianon 06-20-20 ED Note-Physician Basic Information Time Seen: Herb LIM, Vazquez Rico 06/20/2022 12:03 Chief Complaint pt c/o right foot/toes swelling x2wks pt stated he thought it was athletes foot and has been soaking his foot in apple cider vinegar and vicks vapor rub but hasnt been helping. pt denies any injury to the area. denies diabetes. History of Present Illness A 51-year-old female reports to the emergency department with a chief complaint of right foot swelling and toe swelling. Reports that has been going on for 2 weeks. He states that he thought it was athlete's foot, and he has been soaking his foot in apple cider vinegar, as well as using antifungal creams to help with his situation, but has not been working. Also been using Vicks VapoRub. He denies any injury or trauma to the area. Denies any previous wounds or anything like that. Reports he does have fungus infection on the other side of his foot on his left foot, but this foot seems to be worse. States he does follow with podiatry. Denies any history of diabetes. Denies any fevers, chills, or pain elsewhere. Review of Systems A 10 point review of systems is negative except as noted above. Medical and Surgical History: Reviewed and noted Social history: Lives at home Family History: Reviewed. Tobacco: Denies Physical Exam Vitals & Measurements T: 36.8 ?C(Oral) HR: 97(Peripheral) RR: 16 BP: 123/75 SpO2: 100% HT: 185 cm WT: 91 kg BMI: 26.59 General: The patient appears well and in no apparent distress. Patient is resting comfortably in chair. Afebrile Skin: Warm, dry, no pallor noted. Foot is warm to touch and swollen is noted over the right foot near the M TP joints. Discharge of a yellow coloration is noted, but no obvious wound is seen. All toes are swollen as well. And warm to touch. Head: Normocephalic, atraumatic Neck: No JVD Eye: PERRLA, EOMI ENT: Moist mucus membranes Cardiovascular: Regular rate normal peripheral perfusion. Pedal pulse +2 bilaterally Respiratory: No respiratory distress no accessory muscle use no obvious audible wheezing Chest Wall: no deformity Musculoskeletal: normal ROM, no deformity, no swelling GI: No obvious distention Neurological: A&O moves all extremities equal strength and symmetry Psychiatric: Cooperative and appropriate Medical Decision Making 51-year-old male reports the emergency department chief complaint of right foot swelling and pain. Reports that has been on for 2 weeks. Reports that he does have a history of fungal infections, but this does not seem to be a fungal infection. He denies any fevers or chills. Physical examination reveals swelling and warmth of the foot. Patient is dark complected, so no redness is really appreciated, but there is some redness noted on the bottom of the patient's foot. Due to this, I did would order osteomyelitis type work-up on the patient. Lab work was reviewed and noted. Patient's white blood cell count was of normal range and lactic acid was normal. We also did an x-ray that showed no evidence of osteomyelitis. Patient did incidentally have a acute kidney injury that was very mild, so we did give the patient IV fluids here in the emergency department. I discussed that he needs follow-up with podiatry for the cellulitis that is suspicious on his foot. He is follow-up and take the clindamycin as prescribed. I do want the patient to follow-up with his primary care provider to make sure his kidney function is within range as well. Follow-up with your primary care provider in 3 to 5 days. If symptoms worsen, do not improve, or new symptoms arise please report back to emergency department for further evaluation. The patient was understanding and agreeable to plan moving forward. Assessment/Plan PINEDA (acute kidney injury) (N17.9: Acute kidney failure, unspecified) Cellulitis of right foot (L03.115: Cellulitis of right lower limb) Orders: clindamycin, 300 mg = 1 cap(s), Oral, q6hr, X 7 day(s), # 28 cap(s), Refills(s) 0, Pharmacy: [facility] #[id number], 185, cm, 06/20/22 12:07:00 EST, Height/Length Dosing, 91, kg, 06/20/22 12:07:00 EST, Weight Dosing Sodium Chloride 0.9% intravenous solution, 1,000 mL, Soln-IV, IV, Once, Stop date 06/20/22 13:06:00 EST, STAT, Start date 06/20/22 13:06:00 EST, mL/hr, Infuse over 1,000, mL Automated Diff Basic Metabolic Panel Blood Culture Charcoal CBC w/ Auto Diff eGFR Extra Blue Tube Extra SST Tube Lactic Acid XR Foot 3+ Views Right Medications Administered Given [id number] [F], 1000 mL, IV Disposition Plan Patient Discharge Condition Stable Discharge Prescription List Prescriptions clindamycin 300 mg oral cap, 300 mg= 1 cap(s), Oral, q6hr Follow-up With When Contact Information Marco A Curry In 3 days 06/23/2022 [facility]: c/o [address] [place] [address]- Additional Instructions: Follow-up with your aws developer. If symptoms do not improve, you may report to the emergency department. He does not have a aws developer he (more content not included)... [facility] Comment on above: Result Comment: Elec tronically Signed By: Herb LIM, Vazquez Rico\.br\Date and Time Signed: 06/20/22 15:48 EST\.br\Electronically Co-Signed By: Tashi Cardoso M.D.\.br\Date and Time Co-Signed: 06/20/22 20:00 EST ED Patient Education Noteon 06-20-2022 ED Patient Education Note Infectious Disease Cellulitis, Adult Cellulitis is a skin infection. The infected area is often warm, red, swollen, and sore. It occurs most often in the arms and lower legs. It is very important to get treated for this condition. What are the causes? This condition is caused by bacteria. The bacteria enter through a break in the skin, such as a cut, burn, insect bite, open sore, or crack. What increases the risk? This condition is more likely to occur in people who: ? Have a weak body defense system (immune system). ? Have open cuts, jimenez, bites, or scrapes on the skin. ? Are older than 60 years of age. ? Have a blood sugar problem (diabetes). ? Have a long-lasting (chronic) liver disease (cirrhosis) or kidney disease. ? Are very overweight (obese). ? Have a skin problem, such as: ? Itchy rash (eczema). ? Slow movement of blood in the veins (venous stasis). ? Fluid buildup below the skin (edema). ? Have been treated with high-energy rays (radiation). ? Use IV drugs. What are the signs or symptoms? Symptoms of this condition include: ? Skin that is: ? Red. ? Streaking. ? Spotting. ? Swollen. ? Sore or painful when you touch it. ? Warm. ? A fever. ? Chills. ? Blisters. How is this diagnosed? This condition is diagnosed based on: ? Medical history. ? Physical exam. ? Blood tests. ? Imaging tests. How is this treated? Treatment for this condition may include: ? Medicines to treat infections or allergies. ? Home care, such as: ? Rest. ? Placing cold or warm cloths (compresses) on the skin. ? Hospital care, if the condition is very bad. Follow these instructions at home: Medicines ? Take [id number]-[id number]-outsnil and prescription medicines only as told by your doctor. ? If you were prescribed an antibiotic medicine, take it as told by your doctor. Do not stop taking it even if you start to feel better. General instructions ? Drink enough fluid to keep your pee (urine) pale yellow. ? Do not touch or rub the infected area. ? Raise (elevate) the infected area above the level of your heart while you are sitting or lying down. ? Place cold or warm cloths on the area as told by your doctor. ? Keep all follow-up visits as told by your doctor. This is important. Contact a doctor if: ? You have a fever. ? You do not start to get better after 1?2 days of treatment. ? Your bone or joint under the infected area starts to hurt after the skin has healed. ? Your infection comes back. This can happen in the same area or another area. ? You have a swollen bump in the area. ? You have new symptoms. ? You feel ill and have muscle aches and pains. Get help right away if: ? Your symptoms get worse. ? You feel very sleepy. ? You throw up (vomit) or have watery poop (diarrhea) for a long time. ? You see red streaks coming from the area. ? Your red area gets larger. ? Your red area turns dark in color. These symptoms may represent a serious problem that is an emergency. Do not wait to see if the symptoms will go away. Get medical help right away. Call your local emergency services (911 in the [place] Do not drive yourself to the hospital. Summary ? Cellulitis is a skin infection. The area is often warm, red, swollen, and sore. ? This condition is treated with medicines, rest, and cold and warm cloths. ? Take all medicines only as told by your doctor. ? Tell your doctor if symptoms do not start to get better after 1?2 days of treatment. This information is not intended to replace advice given to you by your health care provider. Make sure you discuss any questions you have with your health care provider. Document Released: 12/20/2008 Document Revised: 11/23/2018 Document Reviewed: 11/23/2018 [email or web address] Patient Education ? 2019 [employer]. Nephrology Acute Kidney Injury, Adult Acute kidney injury is a sudden worsening of kidney function. The kidneys are organs that have several jobs. They filter the blood to remove waste products and extra fluid. They also maintain a healthy balance of minerals and hormones in the body, which helps control blood pressure and keep bones strong. With this condition, your kidneys do not do their jobs as well as they should. This condition ranges from mild to severe. Over time it may develop into long-lasting (chronic) kidney disease. Early detection and treatment may prevent acute kidney injury from developing into a chronic condition. What are the causes? Common causes of this condition include: ? A problem with blood flow to the kidneys. This may be caused by: ? Low blood pressure (hypotension) or shock. ? Blood loss. ? Heart and blood vessel (cardiovascular) disease. ? Severe jimenez. ? Liver disease. ? Direct damage to the kidneys. This may be caused by: ? Certain medicines. ? A kidney infection. ? Poisoning. ? Being ar (more content not included)... Normal [facility] ED Patient Summaryon 022 ED Patient Summary [address] [address] Patient Discharge Instructions Person Information Name: GABRIELA FUENTES Age: 51 Years Arrival Date: 06/20/2022 11:58:55 Discharge Diagnosis: PINEDA (acute kidney injury); Cellulitis of right foot Primary Care Physician: Julien CONTRERAS DO Provider Information Primary Provider: Tashi Cardoso M.D. Advanced Production Inspector:None The exam and treatment you received in the Emergency Department were for an urgent problem and are not intended as complete care. It is important that you follow up with a doctor, nurse practitioner, or physician?s medical laboratory assistant for ongoing care. If your symptoms become worse or you do not improve as expected and you are unable to reach your usual health care provider, you should return to the Emergency Department. We are available 24 hours a day. GABRIELA FUENTES has been given the following list of patient education materials, prescriptions and follow-up instructions: Follow-up Instructions: With: Address: When: Marco A Curry [facility]: c/o [facility], [address] [place] [address], [place] [address] In 3 days 06/23/2022 Comments: Follow-up with your aws developer. If symptoms do not improve, you may report to the emergency department. He does not have a aws developer he may follow-up with Dr. Curry. With: Address: When: Julien CONTRERAS [facility] [address] [place] [id number] [facility] (1) In 3 days 06/23/2022 Comments: Follow-up with your primary care provider in 3 to 5 days. If symptoms worsen, do not improve, or new symptoms arise please report back to emergency department for further evaluation. In the event that this physician does not participate in your insurance network, please consult with your insurance company to find a nearby participating provider. Patient Education Materials: Acute Kidney Injury, Adult; Cellulitis, Adult, Bsrn-te-Ndga A MESSAGE TO ALL PATIENTS REGARDING OPIOIDS PRESCRIPTION OPIOIDS: WHAT YOU NEED TO KNOW Prescription opioids can be used to help relieve vulzntyc-mk-ujjubx pain and are often prescribed following a surgery or injury, or for certain health conditions. These medications can be an important part of the treatment but also come with serious risks. It is important to work with your healthcare provider to make sure you are getting the safest, most effective care. WHAT ARE THE RISKS AND SIDE EFFECTS OF OPIOID USE? Prescription opioids carry serious risks of addiction and overdose, especially with prolonged use. An opioid overdose, often marked by slowed breathing, can cause sudden . The use of prescription opioids can have a number of side effects as well, even when taken as directed: ? Tolerance?meaning you might need to take more of the medication for the same pain relief ? Physical dependence?meaning you have symptoms of withdrawal when a medication is stopped ? Increased sensitivity to pain ? Constipation ? Nausea, vomiting, and dry mouth ? Sleepiness and dizziness ? Confusion ? Depression ? Low levels of testosterone that can result in lower sex drive, energy, and strength ? Itching and sweating RISKS ARE GREATER WITH: ? History of drug misuse, substance use disorder, or overdose ? Mental health conditions (such as depression or anxiety) ? Sleep apnea ? Older age (65 years and older) ? Avoid alcohol while taking prescription opioids. Also, unless specifically advised by your health care provider, medications to avoid include: ? Benzodiazepines (such as Xanax or Valium) ? Muscle relaxants (such as Soma or Flexeril) ? Hypnotics (such as Ambien or Lunesta) ? Other prescription opioids KNOW YOUR OPTIONS Talk to your health care provider about ways to manage your pain that don?t involve prescription opioids. Some of these options may actually work better and have fewer risks and side effects. Options may include: ? Pain relievers such as acetaminophen, ibuprofen, and naproxen ? Some medication that are also used for depression or seizures ? Physical therapy and exercise ? Cognitive behavioral therapy, a psychological, goal-directed approach, in which patients learn how to modify physical, behavioral, and emotional triggers of pain and stress. IF YOU ARE PRESCRIBED OPIOIDS FOR PAIN: ? Never take opioids in greater amounts or more often than prescribed. ? Follow up with your primary health care provider. o Work together to create a plan on how to manage your pain. o Talk about ways to help manage your pain that don?t involve prescription opioids. o Talk about any and all concerns and side effects. ? Help prevent misuse and abuse o Never sell or share prescription opioids. o Never use another person?s prescription opioids. ? Store prescription opioids in a secure place and out of reach of others (th (more content not included)... Normal [facility] Lactic Acidon 06-20-2022 Lactate [Mass/Vol] 0.9 mmol/L Normal 0.5-2.2 [facility] Comment on above: Performed By: #### 2 [id number] #### [facility] Laboratory [address] [place] [address] XR Foot 3+ Views Righton XR Foot 3+ Views Right Exam Date/Time: 06/20/2022 12:35 EST Reason for Exam: Pain, Non Traumatic Report IMPRESSION: NO DISPLACED FRACTURE OR RADIOGRAPHIC EVIDENCE OF OSTEOMYELITIS IDENTIFIED. EXAM: XR Foot 3+ Views Right DATE: 06/20/2022 CLINICAL HISTORY: Pain, Non Traumatic. COMPARISON: None available. TECHNIQUE: AP, lateral, and oblique radiographs of the right foot were obtained. FINDINGS: There is no fracture, significant degenerative changes, dislocation, worrisome bone destruction, radiodense foreign bodies, or pathologic calcifications identified. FINAL REPORT Dictated: 06/20/2022 12:45 pm Diego Acosta MD Signed (Electronic Signature): 06/20/2022 12:45 pm Signed by: Diego Acosta MD Transcribed by: ESA Technologist: TRESSA Richardson [facility] eGFRon 06-20-2022 GFR/1.73 sq M.predicted among blacks MDRD (S/P/Bld) [Vol rate/Area] 56 mL/min/1.73 m2 Low >=59 [facility] Comment on above: Order Comment: Order added by Discern Expert. Result Comment: eGFR is race adjusted. AA=. Performed By: #### 2 [id number] #### [facility] Laboratory [address] [place] [address] GFR/1.73 sq M.predicted among non-blacks MDRD (S/P/Bld) [Vol rate/Area] 46 mL/min/1.73 m2 Low >=59 [facility] Comment on above: Order Comment: Order added by Discern Expert. Result Comment: Student Truck Driver rhonda kidney disease could be indicated at eGFR's of less than 60 mL/min/1.73m2. Kidney failure is indicated at less than 15 mL/min/1.73m2. Performed By: #### 2 [id number] #### [facility] [address] [place] [address] Vital Signs Date Time Vital Sign Value Performing Clinician Annmarie gardner 11-21-2023 11:49-0400 Blood Pressure Location Khurram MELGOZA [facility] 11-21-2023 11:49-0400 Diastolic blood pressure 76 mm[Hg] Khurramirma MELGOZA [facility] 11-21-2023 11:49-0400 Heart rate 64 /min Khurramirma MELGOZA [facility] 11-21-2023 11:49-0400 Respiratory rate 16 /min Khurram MELGOZA [facility] 11-21-2023 11:49-0400 Systolic blood pressure 132 mm[Hg] Khurram MELGOZA [facility] 08-08-2023 16:28-0500 Blood Pressure Location Dilma BENAVIDEZ [facility] 08-08-2023 16:28-0500 Diastolic blood pressure 84 mm[Hg] Dilma BENAVIDEZ [facility] 08-08-2023 16:28-0500 Heart rate 83 /min Dilma BENAVIDEZ [facility] 08-08-2023 16:28-0500 Respiratory rate 16 /min Dilma BENAVIDEZ [facility] 08-08-2023 16:28-0500 SaO2% (BldA) [Mass fraction] 96 % Dilma BENAVIDEZ [facility] 08-08-2023 16:28-0500 Systolic blood pressure 134 mm[Hg] Dilma BENAVIDEZ [facility] 07-27-2023 19:36-0500 Body temperature 98.42 [degF] Jensen Campos [facility] 07-27-2023 19:36-0500 Diastolic blood pressure 81 mm[Hg] Jensen Campos [facility] 07-27-2023 19:36-0500 Heart rate 72 /min Jensen Campos [facility] 07-27-2023 19:36-0500 Respiratory rate 18 /min Jensen Campos [facility] 07-27-2023 19:36-0500 SaO2% (BldA) [Mass fraction] 100 % Jensen Campos [facility] 07-27-2023 19:36-0500 Systolic blood pressure 144 mm[Hg] Jensen Campos [facility] 07-26-2023 13:59-0500 Blood Pressure Location Lashawn Owens [facility] 07-26-2023 13:59-0500 Body temperature 98.24 [degF] Lashawn Owens [facility] 07-26-2023 13:59-0500 Diastolic blood pressure 60 mm[Hg] Lashawn Owens [facility] 07-26-2023 13:59-0500 Heart rate 79 /min Lashawn Owens [facility] 07-26-2023 13:59-0500 Respiratory rate 18 /min Lashawn Owens [facility] 07-26-2023 13:59-0500 SaO2% (BldA) [Mass fraction] 95 % Lashawn Owens [facility] 07-26-2023 13:59-0500 Systolic blood pressure 124 mm[Hg] Lashawn Delgadozier [facility] 02-25-2023 15:38-0400 Diastolic blood pressure 84 mm[Hg] Suraj Mourany [facility] 02-25-2023 15:38-0400 Heart rate 60 /min Suraj Mourany [facility] 02-25-2023 15:38-0400 Mean blood pressure 94 mm[Hg] Suraj Mourany [facility] 02-25-2023 15:38-0400 Respiratory rate 16 /min Suraj Mourany [facility] 02-25-2023 15:38-0400 SaO2% (BldA) [Mass fraction] 100 % Suraj Mourany [facility] 02-25-2023 15:38-0400 Systolic blood pressure 115 mm[Hg] Suraj Mourany [facility] 02-25-2023 15:25-0400 Diastolic blood pressure 64 mm[Hg] Suraj Mourany [facility] 02-25-2023 15:25-0400 Heart rate 69 /min Suraj Mourany [facility] 02-25-2023 15:25-0400 Mean blood pressure 80 mm[Hg] Suraj Mourany [facility] 02-25-2023 15:25-0400 Respiratory rate 13 /min Suraj Mourany [facility] 02-25-2023 15:25-0400 SaO2% (BldA) [Mass fraction] 98 % Suraj Mourany [facility] 02-25-2023 15:25-0400 Systolic blood pressure 111 mm[Hg] Suraj Mourany [facility] 02-25-2023 15:20-0400 Diastolic blood pressure 63 mm[Hg] Suraj Mourany [facility] 02-25-2023 15:20-0400 Heart rate 46 /min Suraj Mourany [facility] 02-25-2023 15:20-0400 Mean blood pressure 69 mm[Hg] Suraj Mourany [facility] 02-25-2023 15:20-0400 Respiratory rate 17 /min Suraj Mourany [facility] 02-25-2023 15:20-0400 SaO2% (BldA) [Mass fraction] 100 % Suraj Mourany [facility] 02-25-2023 15:20-0400 Systolic blood pressure 80 mm[Hg] Suraj Mourany [facility] 02-25-2023 15:13-0400 Body temperature 98.78 [degF] Suraj Mourany [facility] 02-25-2023 15:13-0400 Respiratory rate 15 /min Suraj Mourany [facility] 02-25-2023 15:03-0400 Respiratory rate 34 /min Suraj Mourany [facility] 02-25-2023 15:00-0400 Respiratory rate 32 /min Suraj Mourany [facility] 02-25-2023 13:57-0400 Blood Pressure Location Suraj Mourany [facility] 02-25-2023 13:57-0400 Body temperature 98.6 [degF] Suraj Mourany [facility] 01-10-2023 15:27-0400 Blood Pressure Location Suraj Mourany [facility] [place] 01-10-2023 15:27-0400 Body temperature 97.7 [degF] Suraj Mourany [facility] [place] 01-10-2023 15:27-0400 Diastolic blood pressure 75 mm[Hg] Suraj Mourany [facility] 01-10-2023 15:27-0400 Heart rate 72 /min Suraj Mourany [facility] 01-10-2023 15:27-0400 Respiratory rate 16 /min Suraj Milesurany [facility] 01-10-2023 15:27-0400 Systolic blood pressure 124 mm[Hg] Suraj Milesurany [facility] 11-19-2022 08:04-0400 Blood Pressure Location Dilma BENAVIDEZ [facility] 11-19-2022 08:04-0400 Diastolic blood pressure 78 mm[Hg] Dilma BENAVIDEZ [facility] 11-19-2022 08:04-0400 Heart rate 71 /min Dilma BENAVIDEZ [facility] 11-19-2022 08:04-0400 SaO2% (BldA) [Mass fraction] 97 % Dilma BENAVIDEZ [facility] 11-19-2022 08:04-0400 Systolic blood pressure 118 mm[Hg] Dilma BENAVIDEZ [facility] 08-02-2022 16:20-0500 Blood Pressure Location Christopher BROWN [facility] 08-02-2022 16:20-0500 Diastolic blood pressure 80 mm[Hg] Christopher BROWN [facility] 08-02-2022 16:20-0500 Heart rate 73 /min Christopher BROWN [facility] 08-02-2022 16:20-0500 Respiratory rate 16 /min Christopher BROWN [facility] 08-02-2022 16:20-0500 SaO2% (BldA) [Mass fraction] 96 % Christopher BROWN [facility] 08-02-2022 16:20-0500 Systolic blood pressure 120 mm[Hg] Christopher BROWN [facility] 07-23-2022 16:09-0500 Blood Pressure Location Christopher BROWN [facility] 07-23-2022 16:09-0500 Diastolic blood pressure 78 mm[Hg] Christopher BROWN [facility] [place] 07-23-2022 16:09-0500 Heart rate 73 /min Christopher BROWN [facility] 07-23-2022 16:09-0500 Respiratory rate 16 /min Christopher BROWN [facility] 07-23-2022 16:09-0500 SaO2% (BldA) [Mass fraction] 97 % Christopher BROWN [facility] 07-23-2022 16:09-0500 Systolic blood pressure 120 mm[Hg] Dilma BENAVIDEZ [facility] 07-06-2022 17:38-0500 Blood Pressure Location Dilma BENAVIDEZ [facility] 07-06-2022 17:38-0500 Body temperature 97.7 [degF] Dilma BENAVIDEZ [facility] 07-06-2022 17:38-0500 Diastolic blood pressure 78 mm[Hg] Dilma BENAVIDEZ [facility] 07-06-2022 17:38-0500 Heart rate 80 /min Dilma BENAVIDEZ [facility] 07-06-2022 17:38-0500 Respiratory rate 16 /min Dilma BENAVIDEZ [facility] 07-06-2022 17:38-0500 SaO2% (BldA) [Mass fraction] 97 % Dilma BENAVIDEZ [facility] 07-06-2022 17:38-0500 Systolic blood pressure 130 mm[Hg] Dilma BENAVIDEZ [facility] Encounters Encounter Date Encounter Type Care Provider Facility Start: 08-06-2024 ambulatory Khurram Lagosi ty:[facility] Start: 07-05-2024 ambulatory Khurram MELGOZA Facili ty:[id number] Start: 05-10-2024 End: 05-10-2024 ambulatory VIDHI A FELTER Not Available Start: 05-10-2024 End: 05-10-2024 Office outpatient visit 15 minutes Vidhi A Víctorer BOILER RELINER-RADIO MECHANIC HELPER Work Phone: [facility] Comment on above: Other atopic dermati tis Start: 05-10-2024 End: 05-10-2024 Bamboo flowsheet Vidhi A Felter BOILER RELINER-RADIO MECHANIC HELPER Work Phone: [facility] Start: 05-10-2024 End: 05-10-2024 Bamboo flowsheet Vidhi A Felter BOILER RELINER-RADIO MECHANIC HELPER Work Phone: [facility] Start: 01-09-2024 End: 01-09-2024 ambulatory VIDHI A FELTER Not Available Start: 01-09-2024 ambulatory Khurram MELGOZA Facili ty:[facility] [place] Start: 11-21-2023 End: 11-21-2023 ambulatory Khurram MELGOZA Facility:[facility] [place] Start: 11-21-2023 End: 11-21-2023 Patient encounter procedure [facility]urram [facility]ELGOZA [facility] Start: 10-05-2023 End: 10-05-2023 ambulatory TOM A PETITTI Not Available Start: 09-26-2023 End: 09-26-2023 ambulatory VIDHI A FELTER Not Available Start: 09-12-2023 End: 09-12-2023 ambulatory VIDHI A FELTER Not Available Start: 09-02-2023 End: 09-02-2023 ambulatory VIDHI A FELTER Not Available Start: 08-08-2023 End: 08-08-2023 ambulatory Dilma BENAVIDEZ Facility: [place] Start: 08-08-2023 End: 08-08-2023 Patient encounter procedure Dilma BENAVIDEZ [facility] [place] Start: 07-29-2023 ambulatory Khurram MELGOZA Facility :[facility] [place] [facility] Start: 07-27-2023 End: 07-27-2023 Emergency department patient visit Jensen Campos [facility] Start: 07-26-2023 End: 07-26-2023 ambulatory Lashawn Owens Facility: [place] Start: 07-26-2023 End: 07-26-2023 Patient encounter procedure Lashawn Owens [facility] [place] Start: 05-24-2023 ambulatory Khurram MELGOZA Facility :[facility] Start: 02-25-2023 End: 02-25-2023 Patient encounter procedure Suraj Vega [facility] Start: 01-20-2023 End: 01-23-2023 ambulatory JOANNE ALTMAN [facility] Start: 01-20-2023 End: 01-22-2023 Subsequent hospital visit by physician Joanne Altman MD Work Phone: [facility] Comment on above: Chronic kidney disea se (CKD) stage G3a/A1, moderately decreased glomerular filtration rate (GFR) between 45-59 mL/min/1.73 square meter and albuminuria creatinine ratio less than 30 mg/g ([facility]) Start: 01-10-2023 End: 01-10-2023 Patient encounter procedure Suraj Vega [facility] [place] Start: 11-19-2022 End: 11-19-2022 Lab Drop off Dilma BENAVIDEZ [facility] Start: 11-19-2022 End: 11-19-2022 Patient encounter procedure Dilma BENAVIDEZ [facility] [place] Start: 08-02-2022 End: 08-02-2022 Patient encounter procedure Dilma BENAVIDEZ [facility] [place] Start: 07-26-2022 End: 07-27-2022 ambulatory DILMA BENAVIDEZ [facility] Start: 07-26-2022 End: 07-26-2022 Subsequent hospital visit by physician Cori Loera Work Phone: [facility] Start: 07-23-2022 End: 07-23-2022 Patient encounter procedure Dilma BENAVIDEZ [facility] [place] Start: 07-06-2022 End: 07-06-2022 Lab Drop off Dilma BENAVIDEZ [facility] Start: 07-06-2022 End: 07-06-2022 Patient encounter procedure Dilma BENAVIDEZ [facility] [place] Start: 06-20-2022 End: 06-20-2022 Emergency department patient visit Tashi Cardoso Facility:[facility] Start: 09-03-2020 End: 09-03-2020 Subsequent hospital visit by physician Georgiana Neri [facility] Occupational Therapy Procedures Date Procedure Procedure Detail Performing Clinician Start: 02-25-2023 Colonoscopy Vidhi panchal BOILER RELINER-RADIO MECHANIC HELPER Work Phone: Start: 02-25-2023 Colonoscopy Suraj Aleidaron valencia Start: 01-20-2023 Us retroperitoneal r eal time w/image complete Joanne Altman MD Work Phone: Start: 07-26-2022 Hepatic function panel Dilma Benavidez MD Work Phone: Start: 07-26-2022 T. PALLIDUM AB Jeramie Benavidez MD Work Phone: Plan of Treatment Date Care Activity Detail Author Start: 02-25-2033 Screening for malign ant neoplasm of colon [facility] Start: 08-28-2024 End: 08-28-2024 Patient encounter procedure 08/28/2024 3:55 PM EST Office Visit [facility] [address] [place] [address] Vidhi Araujo, BOILER RELINER-RADIO MECHANIC HELPER [address] [place] [address] [facility] Start: 03-18-2024 Influenza vaccination Influenza Vacc ine (#1) [facility] Start: 02-15-2023 Influenza vaccination Flu vaccine (# 1) [facility] [employer] Start: 02-15-2022 Influenza vaccination Flu vaccine (# 1) [facility] [employer] Start: 03-30-2021 COVID-19 Vaccine (3 - Booster for Pfizer series) COVID-19 Vaccine (3 - Booster for Pfizer series) [facility] [employer] Start: 2020 Screening for malign ant neoplasm of colon Colon cancer screen colonoscopy [facility] [employer] Phone: Start: 2020 Shingles Vaccine (1 of 2) Shingles Vaccine (1 of 2) [facility] [employer] Start: 03-18-2020 Influenza vaccination Flu vaccine (# 1) [facility] [employer] Phone: Start: 2015 Screening for malign ant neoplasm of colon [facility] [employer] Start: 2010 Lipid panel [facility] [employer] Start: 1989 DTaP/Tdap/Td vaccine (1 - Tdap) DTaP/Tdap/Td vaccine (1 - Tdap) [facility] [employer] Start: 1988 Hepatitis C screening Hepatitis C sc reen [facility] [employer] Start: 1985 HIV screening HIV screen [facility] [employer] Start: 1982 Depression Screen Depression Screen [facility] [employer] Start: 02-15-1971 COVID-19 Vaccine (#1) COVID-19 Vacci ne (#1) [facility] [employer] Start: 1970 Hepatitis C screening Hepatitis C sc reen [facility] [employer] Phone: Start: 1970 Screening for malign ant neoplasm of colon [facility] End: 07-26-2022 VDRL, QUANTITATIVE [facility] [employer] Phone: Comment on above: Once for 1 Occurrenc es starting 07/26/2022 until 07/26/2022 Immunizations Immunization Date Immunization Notes Care Provider Fa cilijose 02-02-2021 SARS-CoV-2 (COVID-19 ) mRNA BNT-162b2 vax Dilma [employer] [facility] [place] 01-12-2021 SARS-CoV-2 (COVID-19 ) mRNA BNT-162b2 vax [employer] [facility] [facility] NEGATED: Highlighted row has not occurred!08-08-2023 influenza virus vaccine, unspecified formulation [employer] [facility] NEGATED: Highlighted row has not occurred!08-02-2022 influenza virus vaccine, unspecified formulation [employer] [facility] NEGATED: Highlighted row has not occurred!07-23-2022 influenza virus vaccine, unspecified formulation [employer] [facility] NEGATED: Highlighted row has not occurred!07-06-2022 influenza virus vaccine, unspecified formulation [employer] [facility] NEGATED: Highlighted row has not occurred!08-27-2020 influenza virus vaccine, unspecified formulation [employer] [facility] Payers Date Payer Category Payer Private Health [facility] [id number] 2022 Private Health Insurance [id number] .[id number] 2020 Unknown [id number] .[id number] 1970 Unknown [id number] 2.16.840.1.056548.3.579 .2.174 1970 Unknown [id number] 2.16.840.1.714419.3.579 .2.174 1970 Unknown [id number] 2.16.840.1.693072.3.579 .2.174 1970 Unknown [id number] 2.16.840.1.980815.3.579 .2 1970 Unknown [id number] 2.16.840.1.774040.3.579 .2 1970 Unknown [id number] 2.16.840.1.081396.3.579 .27 1970 Unknown [id number] 2.16.840.1.173638.3.579 .2 1970 Unknown [id number] 2.16.840.1.343560.3.579 .2 1970 Unknown [id number] 2.16.840.1.680448.3.579 .2 1970 Unknown [id number] 2.16.840.1.954757.3.579 .27 1970 Unknown [id number] 2.16.840.1.984606.3.579 .2.1258 1970 Unknown [id number] 2.16.840.1.690471.3.579 .2.9 1970 Unknown [id number] 2.16.840.1.413809.3.579 .2.9 1970 Unknown [id number] 2.16.840.1.550502.3.579 .2.1259 1970 Unknown [id number] 2.16.840.1.173215.3.579 .2.1259 1970 Unknown [id number] 2.16.840.1.396892.3.579 .2.1259 1970 Unknown [id number] 2.16.840.1.024719.3.579 .2.727 Social History Date Type Detail Facility Tobacco smoking status NHIS Unknown if ever smoked [employer] Phone: Start: 1970 Sex Assigned At Not on file [employer] Phone: Start: 07-06-2022 End: 09-02-2023 Tobacco smoking status Never smoked tobacco (finding) [facility] Tobacco smoking status Never [facility] Start: 01-09-2024 End: 05-10-2024 Sex Assigned At Male [facility] Tobacco smoking status NHIS Tobacco smoking consumption unknown [facility] [employer] Phone: Start: 01-09-2024 End: 05-10-2024 History of Social function [facility] Functional Status Date Assessment Result Facility 11-21-2023 Functional Status N/A [facility] 08-08-2023 Functional Status N/A [facility] 07-27-2023 Functional Status N/A [facility] 07-26-2023 Functional Status N/A [facility] 02-25-2023 Functional Status N/A [facility] 01-10-2023 Functional Status N/A [facility] [place] 11-19-2022 Functional Status N/A [facility] 08-02-2022 Functional Status N/A [facility] 07-23-2022 Functional Status N/A [facility] 07-06-2022 Functional Status N/A [facility] Clinical Notes 06-27-2022 to 05-10-2024 Vidhi Araujo, [employer] - 05/10/2024 3:40 PM EDT Note Date & Type Note Facility 05-10-2024 History of Present illness Narrative Images from the original note were not included. Follow up Diagnosis: Atopic Dermatitis Location: trunk, hands Status: improving Symptoms: less itchy Last visit: 01/09/24 Procedure performed: Punch biopsy Date of procedure: 09/02/2023 Treatments tried and failed: Multiple courses of antibiotics, Prednisone taper, Mupriocin ointment BID, TAC 0.1% cream BID. Current treatment: Dupixent 300 mg every other week (started 10/05/2023), TAC 0.1% cream bid. Initial BSA: 7%, IGA 5 All pertinent medical history, medications, and allergies were reviewed. General Exam: alert, oriented to person, place, and time, normal affect, well appearing Accompanied by spouse A focused exam completed based on patient reported problems, see below: 1. Other atopic dermatitis Left Hand - Anterior, Right Hand - Anterior Scaly erythematous plaques +/- dyspigmentation, lichenification, excoriations. Improved since last visit BSA: 1% IGA: 2. Discussed that atopic dermatitis is a chronic condition that can be controlled but not cured. Continue Dupixent 300 mg/ml every other week and TAC 0.1% cream bid prn when flared, hold if smooth/asymptomatic. Encouraged daily moisturizing and gentle cleansers to prevent flares. Notify office if flaring despite treatment. Follow up in 4 months before Dupixent PA expires. Related Medications tacrolimus (Protopic) 0.1 % ointment Apply to affected areas, twice a day when flared, 30 day supply Dupixent 300 MG/2ML injection Inject 600 mg (contents of TWO pens) under the skin on day 1. Then inject 300 mg (contents of ONE pen) under the skin on day 15 and every 2 weeks thereafter. triamcinolone (Kenalog) 0.1 % cream Apply to affected areas, up to twice a day when flared, do not use one the face, groin, or underarms, 30 day supply Dupixent 300 MG/2ML injection Inject 300 mg (contents of ONE pen) under the skin every 2 weeks Next Visit: 4 months documented in this encounter [facility] 11-21-2023 Hospital Discharge instructions Patient Education 11/21/2023 12:47:25 Circumcision Information Circumcision Information Male infants are born with a fold of skin that covers the head of the penis (foreskin). This fold of skin is often removed shortly after with a surgery that is called circumcision. A circumcision may be done by a health care provider who is involved in care or by a specialist who cares for the urinary tract (urologist). Circumcisions may also be done in non-medical settings for rastafarian or cultural reasons. Who should be circumcised? The decision to leave the foreskin on or to have it removed is a personal one. It is often based on rastafarian, social, or cultural beliefs. Circumcision is most often done in the first few days of life, but it may also be done later in life. In general: All healthy boys with a normal penis formation can be circumcised in the first few days after . Boys who are born early (prematurely) or who are ill should not be circumcised until they are older and stronger. Boys with certain deformities of the penis or deformities of the opening of the penis (urethra) should not be circumcised. How is circumcision done? The penis and the area around it are cleansed well. An injection may be given to numb the area. A numbing cream may be applied to the area. A special clamp or ring is attached to the penis and used to remove the foreskin. The area is then cleansed well again. Medicine and gauze are applied to it. What are the benefits of circumcision? When the foreskin is removed: The head of the penis is easier to wash. This lowers the risk for odors, swelling, and infection. Some men are less likely to: ?Carry the virus that causes genital warts (human papillomavirus or HPV). ?Contract human immunodeficiency virus (HIV). ?Develop cancer of the penis. ?Get urinary infections. ?Develop inflammation of the penis. What are the risks of circumcision? Circumcision is a safe procedure. However, problems may occur, including: Infection. Bleeding. Removal of too much or too little foreskin. This affects the appearance of the penis. Irritation and narrowing of the urinary opening. This is usually short term. Scarring of the penis. This may affect the way the penis functions. Where to find more information [employer] ([employer]), Male Circumcision: [email or web address].[email or web address] Summary Male infants are born with a fold of skin that covers the head of the penis. This fold of skin is often removed shortly after with a surgery that is called circumcision. When the foreskin is removed, the head of the penis is easier to wash and keep clean. Some men who are circumcised are less likely to carry viruses, get urinary infections, or develop cancer of the penis. Circumcision is a safe procedure. However, problems may occur, including infection, bleeding, scarring, and irritation and narrowing of the opening of the penis. This information is not intended to replace advice given to you by your health care provider. Make sure you discuss any questions you have with your health care provider. Document Revised: 07/05/2022 Document Reviewed: 07/05/2022 [email or web address] Patient Education 2022 [employer]. Follow Up Care 06/06/2023 11:07:18 With:DENIZ DODSON, Khurram Adams, URL Address: [facility] [address] , [place] [address]- [phone] When: Unknown [facility] 11-21-2023 Note Chief Complaint Referral *Phimosis HPI Staff Evaluation requested by Dr Camilo Benavidez due to phimosis. Pt is a new pt. Never before seen in our office. (Verified on DA) Last PSA 11/19/22- 0.9 Denies urinary sx. Here today to discuss possible circumcision. History of Present Illness Tests reviewed: reviewed UA, referral records, PSA I have reviewed the previous health record information and history for this patient from external providers. I have reviewed and verified the staff HPI to be accurate for this encounter. Review of Systems PHQ Score Initial Depression Screen Score: 0 SCORE ROS - Provider Constitutional: denies weight loss, denies hot flashes. Eyes: denies eye problems. Gastrointestinal: denies nausea, denies vomiting. Cardiovascular: denies chest pain or angina. Integumentary: no dryness Musculoskeletal: denies musculoskeletal symptoms. ENMT: denies otolaryngeal symptoms. Respiratory: no shortness of breath. Heme/Lymph: denies easy bleeding tendency, denies easy bruising tendency. Psychiatric: no confusion, no anxiety. Genitourinary: See HPI. Physical Exam Vitals & Measurements HR: 64(Peripheral) RR: 16 BP: 132/76 HT: 72 in HT: 183 cm WT: 97.8 kg WT: 215.16 lb BMI: 29.2 General Appearance: alert, no distress, well nourished, well developed male. Genitourinary: normal scrotum, normal testes, normal urethra, normal epididymis, normal vas deferens/spermatic cord. Distal 2-3 cm of foreskin, indurated with tight white band. Flank Pain: none. Bladder: nonpalpable. Assessment/Plan Gabriela is a 53 yo male new pt referred by Dr. Camilo Benavidez due to phimosis. Pt here with his partner today. IPSS 3. 1. Phimosis (N47.1: Phimosis) No hx of circumcision. Reports his foreskin does not cover his urethral opening yet. Has cracking with erections. Discussed details of circumcision and healing process. 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 Recommended pt to stay off work 2-3 wks PO. Pt's partner has been having vaginal infections. Pt's partner has not had any new sexual partners but pt has. She has tested positive for HPV but pt has tested negative. Thought she may be getting infected due to pt's foreskin. Educated pt correlation cannot be concluded to exclusive to pt. Also counseled pt and partner on transmission of STIs. UA today negative for blood and infection. PE: Distal 2-3 cm of foreskin, indurated with tight white band. -Will schedule Circumcision. The procedure risks, benefits, and details have been discussed with the patient. These include bleeding, infection, potential separation of the skin edges (which will heal in), change in penile sensation which may affect sexual intercourse and erections, as well as the need for additional procedures, among others. Full informed consent has been obtained. Will order General anesthesia. 2. Prostate cancer screening (Z12.5: Encounter for screening for malignant neoplasm of prostate) PSA 11/19/22 - 0.9 No fam hx of prostate ca. -Cont routine PSA checks w/ PCP Follow-up With When Contact Information DENIZ DODSON, Khurram Adams, URL [facility] [address] [place] [address]- [phone] Additional Instructions: schedule circumcision Patient Education Circumcision Information I, Idania Samuel, personally scribed for Dr. Melgoza on 11/21/2023 12:57:24. . Documentation recorded by the scribe, Idania Samuel, accurately reflects the services(s) I performed and decisions made by me. Authenticated by Dr. Melgoza on 11/21/2023 12:59:53. 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 Medications Dupixent Pre-filled Pen 300 mg/2 mL subcutaneous solution triamcinolone Top 0.1% Crm 15 gram, 1 montez, Topical, BID, 1 refills Allergies amoxicillin (Rash) Social History Alcohol - Medium Risk, 07/27/2023 Current, Beer, 1-2 times per month, 07/27/2023 Home/Environment Lives with Alone., 07/06/2022 Substance Abuse - Denies Substance Abuse, 06/20/2022 Current, Marijuana, Previous treatment: None., 07/26/2023 Tobacco - Denies Tobacco Use, 06/20/2022 Never (less than 100 in lifetime) Tobacco Use:. Never Smokeless Tobacco Use:. Household tobacco concerns: No. Yes, 11/21/2023 Family History Hypertension: Mother. Primary malignant neoplasm of female breast: Mother. Immunizations Vaccine Date Status Comments influenza virus vaccine, inactivated - Not Given Postpone due to refusal influenza virus vaccine, inactivated - Not Given Postpone due to refusal influenza vi (more content not included)... [facility] Comment on above: Result Comment: Elec tronically Signed By: Khurram MELGOZA MD\.br\Date and Time Signed: 11/21/23 12:59 EDT\.br\Electronically Co-Signed By: Idania Samuel\.br\Date and Time Co-Signed: 11/21/23 12:57 EDT 08-08-2023 Hospital Discharge instructions Patient Education 08/08/2023 16:54:55 Atopic Dermatitis Atopic Dermatitis Atopic dermatitis is a skin disorder that causes inflammation of the skin. It is marked by a red rash and itchy, dry, scaly skin. It is the most common type of eczema. Eczema is a group of skin conditions that cause the skin to become rough and swollen. This condition is generally worse during the cooler winter months and often improves during the warm summer months. Atopic dermatitis usually starts showing signs in infancy and can last through adulthood. This condition cannot be passed from one person to another (is not contagious). Atopic dermatitis may not always be present, but when it is, it is called a flare-up. What are the causes? The exact cause of this condition is not known. Flare-ups may be triggered by: Coming in contact with something that you are sensitive or allergic to (allergen). Stress. Certain foods. Extremely hot or cold weather. Harsh chemicals and soaps. Dry air. Chlorine. What increases the risk? This condition is more likely to develop in people who have a personal or family history of: Eczema. Allergies. Asthma. Hay fever. What are the signs or symptoms? Symptoms of this condition include: Dry, scaly skin. Red, itchy rash. Itchiness, which can be severe. This may occur before the skin rash. This can make sleeping difficult. Skin thickening and cracking that can occur over time. How is this diagnosed? This condition is diagnosed based on: Your symptoms. Your medical history. A physical exam. How is this treated? There is no cure for this condition, but symptoms can usually be controlled. Treatment focuses on: Controlling the itchiness and scratching. You may be given medicines, such as antihistamines or steroid creams. Limiting exposure to allergens. Recognizing situations that cause stress and developing a plan to manage stress. If your atopic dermatitis does not get better with medicines, or if it is all over your body (widespread), a treatment using a specific type of light (phototherapy) may be used. Follow these instructions at home: Skin care Keep your skin well moisturized. Doing this seals in moisture and helps to prevent dryness. ?Use unscented lotions that have petroleum in them. ?Avoid lotions that contain alcohol or water. They can dry the skin. Keep baths or showers short (less than 5 minutes) in warm water. Do not use hot water. ?Use mild, unscented cleansers for bathing. Avoid soap and bubble bath. ?Apply a moisturizer to your skin right after a bath or shower. Do not apply anything to your skin without checking with your health care provider. General instructions Take or apply [id number] and prescription medicines only as told by your health care provider. Dress in clothes made of cotton or cotton blends. Dress lightly because heat increases itchiness. When washing your clothes, rinse your clothes twice so all of the soap is removed. Avoid any triggers that can cause a flare-up. Keep your fingernails cut short. Avoid scratching. Scratching makes the rash and itchiness worse. A break in the skin from scratching could result in a skin infection (impetigo). Do not be around people who have cold sores or fever blisters. If you get the infection, it may cause your atopic dermatitis to worsen. Keep all follow-up visits. This is important. Contact a health care provider if: Your itchiness interferes with sleep. Your rash gets worse or is not better within one week of starting treatment. You have a fever. You have a rash flare-up after having contact with someone who has cold sores or fever blisters. Get help right away if: You develop pus or soft yellow scabs in the rash area. Summary Atopic dermatitis causes a red rash and itchy, dry, scaly skin. Treatment focuses on controlling the itchiness and scratching, limiting exposure to things that you are sensitive or allergic to (allergens), recognizing situations that cause stress, and developing a plan to manage stress. Keep your skin well moisturized. Keep baths or showers shorter than 5 minutes and use warm water. Do not use hot water. This information is not intended to replace advice given to you by your health care provider. Make sure you discuss any questions you have with your health care provider. Document Revised: 04/13/2021 Document Reviewed: 04/13/2021 [email or web address] Patient Education 2022 [employer]. Follow Up Care 08/08/2023 09:13:48 With:Dilma BENAVIDEZ MD, FAM Address: When: only if needed [facility] 07-27-2023 Hospital Discharge instructions Patient Education 07/27/2023 21:10:41 Syphilis Syphilis Syphilis is a curable infection that can spread through sexual contact. It is important to get treatment right away to reduce the possibility of serious complications. There are four stages of syphilis: Primary stage. During this stage, sores may form where the disease entered your body. Secondary stage. During this stage, skin rashes and lesions will form. Latent stage. During this stage, there are no symptoms, but the infection may still be contagious. Tertiary stage. This stage happens 5 30 years after the infection starts. During this stage, the disease damages organs and can lead to . Most people with treated syphilis do not develop this stage. What are the causes? This condition is caused by bacteria called Treponema pallidum. The condition can spread during sexual activity, such as during oral, anal, or vaginal sex. It can also be spread to an unborn baby (fetus) during . What increases the risk? You are more likely to develop this condition if: You do not use a condom during sex. You have sex with a partner who has syphilis. You have a history of sexually transmitted infections (STIs). You use recreational drugs such as methamphetamines, injection drugs, or heroin. What are the signs or symptoms? Symptoms of this condition depend on the stage of the disease. Primary stage One or more painless sores (chancres) in and around the genital organs, mouth, or hands. The sores are usually firm and round. Secondary stage Skin rashes or sores (or both) in the mouth, vagina, anus, palms of the hands, or bottoms of the feet. The rash may be rough, red or reddish-brown, and may not itch. Other symptoms may include: ?A fever. ?Swollen lymph glands. ?A sore throat. ?Patchy hair loss. ?A headache. ?A feeling of being ill or very tired. ?Weight loss. Latent stage There are no symptoms during this stage. Tertiary stage This stage is rarely noted due to the use of antibiotic medicine to treat syphilis. However, without treatment, syphilis can further affect different organ systems, especially the heart and nervous system. Signs and symptoms impacting the heart include: ?Enlargement of the heart. ?Damage to the aorta. ?Narrowing of the blood vessels around the heart. Signs and symptoms impacting the nervous system include: ?Meningitis. ?Dysfunction of the nerves to the head. Nonspecific growths may also occur in the skin, mucous membranes, bones, or body organs in this stage. Any stage if there is no treatment Signs and symptoms of impacting the nervous system include: ?A severe headache. ?Muscle weakness or difficulty coordinating movements, such as walking. ?Changes in mental state, such as confusion, personality changes, or dementia. Signs and symptoms of impacting the eyes include: ?Eye pain. ?Eye redness. ?Changes in vision. ?Blindness. Signs and symptoms of impacting the ears include: ?Hearing loss. ?Ringing in the ears (tinnitus). ?Dizziness or feeling like you or your surroundings are moving or spinning (vertigo). How is this diagnosed? This condition is diagnosed with: A physical exam. Blood tests, including: ?Nontreponemal test. This is usually the first test. It can detect other kinds of antibodies as well. ?Treponemal test. This test is done if you get a positive result on the nontreponemal test. It specifically looks for antibodies to syphilis. This test will not show whether antibodies are from a past syphilis infection or a current infection. Tests of the fluid (drainage) from a sore or rash. Tests of the fluid around the spine (lumbar puncture). These tests are done to check for an infection in the brain or nervous system in late-stage syphilis. Imaging tests. These may be done to check for damage to the heart, aorta, or brain if the condition is in the tertiary stage. Tests may include: ?X-ray. ?CT scan. ?MRI. ?Echocardiogram. This test takes a picture of the heart. How is this treated? This condition can be cured with antibiotic medicine. It is important to receive treatment as soon as possible to get rid of the infection. However, the treatment may not undo any damage already caused by the infection. Follow these instructions at home: Medicines Take xvzl-kuy-eqjskbf and prescription medicines only as told by your health care provider. Take your antibiotic medicine as told by your health care provider. Do not stop taking the antibiotic even if you start to feel better. Incomplete treatment will put you at risk for continued infection and could be life-threatening. General instructions Do not have sex until your treatment is completed, or as directed by your health care provider. Tell your recent sexual partners that you were diagnosed with syphilis. It is important that they get treatment, even if they do not have symptoms. Keep all follow-up visits. This is important. How is this prevented? Use latex or polyurethane condoms correctly whenever you have sex. Before you have sex, ask your partner if they have been tested for STIs. Ask about the test results. Avoid having multiple sexual partners. Contact a health care provider if: You continue to have any of the following symptoms 24 hours after beginning treatment: ?Fever. ?Chills. ?Headache. ?Nausea. ?Aching all over your body. Your symptoms do not improve, even with treatment. Get help right away if: You have severe chest pain. You have trouble walking or coordinating movements. You are confused. You lose vision or hearing. You have numbness in your arms or legs. You have a seizure. You faint. You have a severe headache that does not go away with medicine. These symptoms may be an emergency. Get help right away. Call 911. Do not wait to see if the symptoms will go away. Do not drive yourself to the hospital. Summary Syphilis is an infection that can spread through sexual contact or to a fetus during . This condition can cause serious complications, so it is best to get treatment right away. The condition can be cured with antibiotic medicine. Take your antibiotic medicine as told by your health care provider. Tell your recent sexual partners that you were diagnosed with syphilis. It is important that they get treatment, even if they do not have symptoms. This information is not intended to replace advice given to you by your health care provider. Make sure you discuss any questions you have with your health care provider. Document Revised: 05/28/2022 Document Reviewed: 05/28/2022 [email or web address] Patient Education 2022 [email or web address] 07/27/2023 21:10:36 Rash, Adult, Zwmb-kn-Qxkw Rash, Adult A rash is a change in the color of your skin. A rash can also change the way your skin feels. There are many different conditions and factors that can cause a rash. Follow these instructions at home: The goal of treatment is to stop the itching and keep the rash from spreading. Watch for any changes in your symptoms. Let your doctor know about them. Follow these instructions to help with your condition: Medicine Take or apply htrx-zcx-dufonjx and prescription medicines only as told by your doctor. These may include medicines: To treat red or swollen skin (corticosteroid creams). To treat itching. To treat an allergy (oral antihistamines). To treat very bad symptoms (oral corticosteroids). Skin care Put cool cloths (compresses) on the affected areas. Do not scratch or rub your skin. Avoid covering the rash. Make sure that the rash is exposed to air as much as possible. Managing itching and discomfort Avoid hot showers or baths. These can make itching worse. A cold shower may help. Try taking a bath with: ?Epsom salts. You can get these at your local pharmacy or grocery store. Follow the instructions on the package. ?Baking soda. Pour a small amount into the bath as told by your doctor. ?Colloidal oatmeal. You can get this at your local pharmacy or grocery store. Follow the instructions on the package. Try putting baking soda paste onto your skin. Stir water into baking soda until it gets like a paste. Try putting on a lotion that relieves itchiness (calamine lotion). Keep cool and out of the sun. Sweating and being hot can make itching worse. General instructions Rest as needed. Drink enough fluid to keep your pee (urine) pale yellow. Wear loose-fitting clothing. Avoid scented soaps, detergents, and perfumes. Use gentle soaps, detergents, perfumes, and other cosmetic products. Avoid anything that causes your rash. Keep a journal to help track what causes your rash. Write down: ?What you eat. ?What cosmetic products you use. ?What you drink. ?What you wear. This includes jewelry. Keep all follow-up visits as told by your doctor. This is important. Contact a doctor if: You sweat at night. You lose weight. You pee (urinate) more than normal. You pee less than normal, or you notice that your pee is a darker color than normal. You feel weak. You throw up (vomit). Your skin or the whites of your eyes look yellow (jaundice). Your skin: ?Tingles. ?Is numb. Your rash: ?Does not go away after a few days. ?Gets worse. You are: ?More thirsty than normal. ?More tired than normal. You have: ?New symptoms. ?Pain in your belly (abdomen). ?A fever. ?Watery poop (diarrhea). Get help right away if: You have a fever and your symptoms suddenly get worse. You start to feel mixed up (confused). You have a very bad headache or a stiff neck. You have very bad joint pains or stiffness. You have jerky movements that you cannot control (seizure). Your rash covers all or most of your body. The rash may or may not be painful. You have blisters that: ?Are on top of the rash. ?Grow larger. ?Grow together. ?Are painful. ?Are inside your nose or mouth. You have a rash that: ?Looks like purple pinprick-sized spots all over your body. ?Has a bull's eye or looks like a target. ?Is red and painful, causes your skin to peel, and is not from being in the sun too long. Summary A rash is a change in the color of your skin. A rash can also change the way your skin feels. The goal of treatment is to stop the itching and keep the rash from spreading. Take or apply ymgw-gxe-dxeuwfj and prescription medicines only as told by your doctor. Contact a doctor if you have new symptoms or symptoms that get worse. Keep all follow-up visits as told by your doctor. This is important. This information is not intended to replace advice given to you by your health care provider. Make sure you discuss any questions you have with your health care provider. Document Revised: 04/15/2022 Document Reviewed: 04/15/2022 [email or web address] Patient Education 2022 [email or web address] Follow Up Care 07/27/2023 19:33:34 With:Dilma BENAVIDEZ MD, FAM Address: [address] [place] [phone]- When:07/30/2023 [facility] 07-27-2023 Evaluation + Plan note Extrac dasha from: Title:ED Note Author:Aurand Deb LIM ate:07/27/23 1. Rash of both hands, (R21: Rash and other nonspecific skin eruption)Rash of body Ordered: methylPREDNISolone, = 1 packet(s), Oral, As Directed, as directed on package labeling, X 6 day(s), # 21 tab(s), Refills(s) 0, Pharmacy: [facility] #[id number], 180, cm, 07/27/23 19:43:00 EST, Height/Length Dosing, 97.1, kg, 07/27/23 19:43:00 EST, Weight Dosing Orders: diphenhydrAMINE, 50 mg = 2 cap(s), Cap, Oral, Once, Stop date 07/27/23 20:04:00 EST, STAT, Start date 07/27/23 20:04:00 EST, 07/27/23 20:04:00 EST methylPREDNISolone, 60 mg = 1.5 mL, Susp-Inj, IntraMuscular, Once, Stop date 07/27/23 20:04:00 EST, STAT, Start date 07/27/23 20:04:00 EST, 07/27/23 20:04:00 EST RPR with Conf Rfx Future Appointments Appointment Date:09/05/2023 11:00:00 AM Scheduled Provider:Khurram MELGOZA MD Location:[facility] Appointment Type:URO New Patient Diagnostic Tests Pending * RPR with Conf Rfx 07/27/23 [facility]01-09-2024 Hospital Discharge instructions Patient Education 07/26/2023 15:10:06 Dyshidrotic Eczema Dyshidrotic Eczema Dyshidrotic eczema, also known as pompholyx, is a type of eczema that causes very itchy, fluid-filled blisters (vesicles) to form on the hands and feet. It is more common before age 40, though it canaffect people of any age. There is no cure, but treatment and certain lifestyle changes can help relieve symptoms. What are the causes? The cause of this condition is not known. What increases the risk? You are more likely to develop this condition if: You wash your hands frequently. You have a personal or family history of eczema, allergies, asthma, or hay fever. You are allergic to metals, such as nickel or cobalt. You work with cement. You smoke. What are the signs or symptoms? Symptoms of this condition may affect the hands, the feet, or both. Symptoms may come and go (recur), and may include: Severe itching. This may happen before blisters appear. Blisters. These may form suddenly. ?In the early stages, blisters may form near the fingertips. ?In severe cases, blisters may grow to large blister masses (bullae). ?Blisters resolve in 2 3 weeks without bursting. This is followed by a dry phase in which itching eases. Pain and swelling. Cracks or long, narrow openings (fissures) in the skin. Severe dryness. Ridges on the nails. How is this diagnosed? This condition may be diagnosed based on: Your symptoms and a physical exam. Your medical history. Skin scrapings to rule out a fungal infection. Testing a swab of fluid for bacteria (culture). Removing a small piece of skin (biopsy) to test for infection or to rule out other conditions. Skin patch tests. These tests involve using patches that contain possible allergens and placing them on your back. Your health care provider will wait a few days and then check to see if an allergic reaction occurred. These tests may be done if your health care provider suspects allergic reactions,or to rule out other types of eczema. You may be referred to a health care provider who specializes in skin conditions (audio specialist) tohelp diagnose and treat this condition. How is this treated? There is no cure for this condition, but treatment can help relieve symptoms. Depending on the amount and severity of the blisters, your health care provider may suggest: Avoiding allergens, irritants, or triggers that worsen symptoms. This may involve lifestyle changes, such as: ?Using different lotions or soaps. ?Avoiding hot weather or places that will cause you to sweat a lot. ?Managing stress with coping techniques, such as relaxation and exercise, and asking for help when you need it. ?Diet changes as recommended by your health care provider. Using a clean, damp towel (cool compress) to relieve symptoms. Soaking in a bath that contains a type of salt that relieves irritation (aluminum acetate soaks). Medicines, such as: ?Medicine taken by mouth to reduce itching (oral antihistamines). ?Medicine applied to the skin to reduce swelling and irritation (topical corticosteroids). ?Medicine that reduces the activity of the body's disease-fighting system (immunosuppressants) to treat inflammation. This may be given in severe cases. ?Antibiotic medicines to treat bacterial infection. Light therapy (phototherapy). This involves shining ultraviolet (UV) light on the affected skin in order to reduce itchiness and inflammation. Follow these instructions at home: Bathing and skin care Wash skin gently. After bathing or washing your hands, pat your skin dry. Avoid rubbing your skin. Remove all jewelry before bathing. If the skin under the jewelry stays wet, blisters may form or get worse. Apply cool compresses as told by your health care provider. To do this: ?Soak a clean towel in cool water. ?Wring out excess water until towel is damp. ?Place the towel over the affected skin. Leave the towel on for 20 minutes at a time, 2 3 times a day. Use mild soaps, cleansers, and lotions that do not contain dyes, perfumes, or other irritants. Keep your skin hydrated. To do this: ?Avoid very hot water. Take lukewarm baths or showers. ?Apply moisturizer within 3 minutes of bathing. This locks in moisture. Medicines Take and apply enmb-hkc-eqtlcal and prescription medicines only as told by your health care provider. If you were prescribed an antibiotic medicine, take or apply it as told by your health care provider. Do not stop using the antibiotic even if you start to feel better. General instructions Do not use any products that contain nicotine or tobacco. These include cigarettes, chewing tobacco, and vaping devices, such as e-cigarettes. If you need help quitting, ask your health care provider. Identify and avoid triggers and allergens. Keep fingernails short to avoid breaking the skin while scratching. Use waterproof gloves to protect your hands when doing work that keeps your hands wet for a long time. Wear socks to keep your feet dry. Keep all follow-up visits. This is important. Contact a health care provider if: You have symptoms that do not go away. You have signs of infection, such as: ?Crusting, pus, or a bad smell. ?More redness, swelling, or pain. ?Increased warmth in the affected area. Get help right away if: Your skin gets streaking redness with associated pain. Summary Dyshidrotic eczema, also known as pompholyx, is a type of eczema that causes very itchy, fluid-filled blisters (vesicles) to form on the hands and feet. The cause of this condition is not known. There is no cure for this condition, but treatment can help relieve symptoms. Treatment depends on the amount and severity of the blisters. Use mild soaps, cleansers, and lotions that do not contain dyes, perfumes, or other irritants. Keepyour skin hydrated. This information is not intended to replace advice given to you by your health care provider. Make sure you discuss any questions you have with your health care provider. Document Revised: 04/13/2021 Document Reviewed: 04/13/2021 [email or web address] Patient Education 2022 [employer]. [facility] 08-11-2023 Hospital Discharge instructions Patient Education 02/25/2023 15:25:34 Colon Polyps Colon Polyps Colon polyps are tissue growths inside the colon, which is part of the large intestine. They are one of the types of polyps that can grow in the body. A polyp may be a round bump or a mushroom-shapedgrowth. You could have one polyp or more than one. Most colon polyps are noncancerous (benign). However, some colon polyps can become cancerous over time. Finding and removing the polyps early can help prevent this. What are the causes? The exact cause of colon polyps is not known. What increases the risk? The following factors may make you more likely to develop this condition: Having a family history of colorectal cancer or colon polyps. Being older than 45 years of age. Being younger than 45 years of age and having a significant family history of colorectal cancer or colon polyps or a genetic condition that puts you at higher risk of getting colon polyps. Having inflammatory bowel disease, such as ulcerative colitis or Crohn's disease. Having certain conditions passed from parent to child (hereditary conditions), such as: ?Familial adenomatous polyposis (FAP). ?Badillo syndrome. ?Turcot syndrome. ?Peutz Jeghers syndrome. ?MUTYH-associated polyposis (MAP). Being overweight. Certain lifestyle factors. These include smoking cigarettes, drinking too much alcohol, not gettingenough exercise, and eating a diet that is high in fat and red meat and low in fiber. Having had childhood cancer that was treated with radiation of the abdomen. What are the signs or symptoms? Many times, there are no symptoms. If you have symptoms, they may include: Blood coming from the rectum during a bowel movement. Blood in the stool (feces). The blood may be bright red or very dark in color. Pain in the abdomen. A change in bowel habits, such as constipation or diarrhea. How is this diagnosed? This condition is diagnosed with a colonoscopy. This is a procedure in which a lighted, flexible scope is inserted into the opening between the buttocks (anus) and then passed into the colon to examine the area. Polyps are sometimes found when a colonoscopy is done as part of routine cancer screening tests. How is this treated? This condition is treated by removing any polyps that are found. Most polyps can be removed during a colonoscopy. Those polyps will then be tested for cancer. Additional treatment may be needed depending on the results of testing. Follow these instructions at home: Eating and drinking Eat foods that are high in fiber, such as fruits, vegetables, and whole grains. Eat foods that are high in calcium and vitamin D, such as milk, cheese, yogurt, eggs, liver, fish, and broccoli. Limit foods that are high in fat, such as fried foods and desserts. Limit the amount of red meat, precooked or cured meat, or other processed meat that you eat, such as hot dogs, sausages, parkinson, or meat loaves. Limit sugary drinks. Lifestyle Maintain a healthy weight, or lose weight if recommended by your health care provider. Exercise every day or as told by your health care provider. Do not use any products that contain nicotine or tobacco, such as cigarettes, e- cigarettes, and chewing tobacco. If you need help quitting, ask your health care provider. Do not drink alcohol if: ?Your health care provider tells you not to drink. ?You are , may be , or are planning to become . If you drink alcohol: ?Limit how much you use to: ?0 1 drink a day for women. ?0 2 drinks a day for men. ?Know how much alcohol is in your drink. In the [place] one drink equals one 12 oz bottle of beer (355 mL), one 5 oz glass of wine (148 mL), or one 1 oz glass of hard liquor (44 mL). General instructions Take ulnj-teb-rgjcykk and prescription medicines only as told by your health care provider. Keep all follow-up visits. This is important. This includes having regularly scheduled colonoscopies. Talk to your health care provider about when you need a colonoscopy. Contact a health care provider if: You have new or worsening bleeding during a bowel movement. You have new or increased blood in your stool. You have a change in bowel habits. You lose weight for no known reason. Summary Colon polyps are tissue growths inside the colon, which is part of the large intestine. They are one type of polyp that can grow in the body. Most colon polyps are noncancerous (benign), but some can become cancerous over time. This condition is diagnosed with a colonoscopy. This condition is treated by removing any polyps that are found. Most polyps can be removed during a colonoscopy. This information is not intended to replace advice given to you by your health care provider. Make sure you discuss any questions you have with your health care provider. Document Revised: 10/22/2020 Document Reviewed: 10/22/2020 [email or web address] Patient Education 2022 [employer]. 02/25/2023 14:43:18 Colonoscopy, Adult, Care After Colonoscopy, Adult, Care After The following information offers guidance on how to care for yourself after your procedure. Your health care provider may also give you more specific instructions. If you have problems or questions, contact your health care provider. What can I expect after the procedure? After the procedure, it is common to have: A small amount of blood in your stool for 24 hours after the procedure. Some gas. Mild cramping or bloating of your abdomen. Follow these instructions at home: Eating and drinking Drink enough fluid to keep your urine pale yellow. Follow instructions from your health care provider about eating or drinking restrictions. Resume your normal diet as told by your health care provider. Avoid heavy or fried foods that are hard to digest. Activity Rest as told by your health care provider. Avoid sitting for a long time without moving. Get up to take short walks every 1 2 hours. This is important to improve blood flow and breathing. Ask for help if you feel weak or unsteady. Return to your normal activities as told by your health care provider. Ask your health care provider what activities are safe for you. Managing cramping and bloating Try walking around when you have cramps or feel bloated. If directed, apply heat to your abdomen as told by your health care provider. Use the heat source that your health care provider recommends, such as a moist heat pack or a heating pad. ?Place a towel between your skin and the heat source. ?Leave the heat on for 20 30 minutes. ?Remove the heat if your skin turns bright red. This is especially important if you are unable to feel pain, heat, or cold. You have a greater risk of getting burned. General instructions If you were given a sedative during the procedure, it can affect you for several hours. Do not drive or operate machinery until your health care provider says that it is safe. For the first 24 hours after the procedure: ?Do not sign important documents. ?Do not drink alcohol. ?Do your regular daily activities at a slower pace than normal. ?Eat soft foods that are easy to digest. Take acle-awp-vjhuzaa and prescription medicines only as told by your health care provider. Keep all follow-up visits. This is important. Contact a health care provider if: You have blood in your stool 2 3 days after the procedure. Get help right away if: You have more than a small spotting of blood in your stool. You have large blood clots in your stool. You have swelling of your abdomen. You have nausea or vomiting. You have a fever. You have increasing pain in your abdomen that is not relieved with medicine. These symptoms may be an emergency. Get help right away. Call 911. Do not wait to see if the symptoms will go away. Do not drive yourself to the hospital. Summary After the procedure, it is common to have a small amount of blood in your stool. You may also have mild cramping and bloating of your abdomen. If you were given a sedative during the procedure, it can affect you for several hours. Do not drive or operate machinery until your health care provider says that it is safe. Get help right away if you have a lot of blood in your stool, nausea or vomiting, a fever, or increased pain in your abdomen. This information is not intended to replace advice given to you by your health care provider. Make sure you discuss any questions you have with your health care provider. Document Revised: 02/24/2022 Document Reviewed: 02/24/2022 [email or web address] Patient Education 2022 [employer]. Follow Up Care 01/10/2023 16:09:43 With:Silvia DODSON, ARSENIO Jerome Address: [facility] [address] Child[address] [phone] When:1 to 2 weeks only if needed Comments:Call for any problems. [facility]08-11-2023 Evaluation + Plan noteExtracted from: Title:ANES Pre-operative Note 2022 Author:Romain Buck Jr, DO Date:02/25/23 Plan [place] [employer] (ASA) physical status classification: Class II. Anesthetic Preoperative Plan: Anesthesia General. [facility]05-03-2023 Hospital Discharge instructions Patient Education 11/17/2022 18:52:08 Chronic Kidney Disease, Adult Chronic Kidney Disease, Adult Chronic kidney disease (CKD) occurs when the kidneys are slowly and permanently damaged over a longperiod of time. The kidneys are a pair of organs that do many important jobs in the body, including: Removing waste and extra fluid from the blood to make urine. Making hormones that maintain the amount of fluid in tissues and blood vessels. Maintaining the right amount of fluids and chemicals in the body. A small amount of kidney damage may not cause problems, but a large amount of damage may make it hard or impossible for the kidneys to work right. Steps must be taken to slow kidney damage or to stopit from getting worse. If steps are not taken, the kidneys may stop working permanently (end-stage renal disease, or ESRD). Most of the time, CKD does not go away, but it can often be controlled. People who have CKD are usually able to live full lives. What are the causes? The most common causes of this condition are diabetes and high blood pressure (hypertension). Other causes include: Cardiovascular diseases. These affect the heart and blood vessels. Kidney diseases. These include: ?Glomerulonephritis, or inflammation of the tiny filters in the kidneys. ?Interstitial nephritis. This is swelling of the small tubes of the kidneys and of the surrounding structures. ?Polycystic kidney disease, in which clusters of fluid-filled sacs form within the kidneys. ?Renal vascular disease. This includes disorders that affect the arteries and veins of the kidneys. Diseases that affect the body's defense system (immune system). A problem with urine flow. This may be caused by: ?Kidney stones. ?Cancer. ?An enlarged prostate, in males. A kidney infection or urinary tract infection (UTI) that keeps coming back. Vasculitis. This is swelling or inflammation of the blood vessels. What increases the risk? Your chances of having kidney disease increase with age. The following factors may make you more likely to develop this condition: A family history of kidney disease or kidney failure. Kidney failure means the kidneys can no longer work right. Certain genetic diseases. Taking medicines often that are damaging to the kidneys. Being around or being in contact with toxic substances. Obesity. A history of tobacco use. What are the signs or symptoms? Symptoms of this condition include: Feeling very tired (lethargic) and having less energy. Swelling, or edema, of the face, legs, ankles, or feet. Nausea or vomiting, or loss of appetite. Confusion or trouble concentrating. Muscle twitches and cramps, especially in the legs. Dry, itchy skin. A metallic taste in the mouth. Producing less urine, or producing more urine (especially at night). Shortness of breath. Trouble sleeping. CKD may also result in not having enough red blood cells or hemoglobin in the blood (anemia) or having weak bones (bone disease). Symptoms develop slowly and may not be obvious until the kidney damage becomes severe. It is possible to have kidney disease for years without having symptoms. How is this diagnosed? This condition may be diagnosed based on: Blood tests. Urine tests. Imaging tests, such as an ultrasound or a CT scan. A kidney biopsy. This involves removing a sample of kidney tissue to be looked at under a microscope. Results from these tests will help to determine how serious the CKD is. How is this treated? There is no cure for most cases of this condition, but treatment usually relieves symptoms and prevents or slows the worsening of the disease. Treatment may include: Diet changes, which may require you to avoid alcohol and foods that are high in salt, potassium, phosphorous, and protein. Medicines. These may: ?Lower blood pressure. ?Control blood sugar (glucose). ?Relieve anemia. ?Relieve swelling. ?Protect your bones. ?Improve the balance of salts and minerals in your blood (electrolytes). Dialysis, which is a type of treatment that removes toxic waste from the body. It may be needed if you have kidney failure. Managing any other conditions that are causing your CKD or making it worse. Follow these instructions at home: Medicines Take mcge-ktr-pdenmap and prescription medicines only as told by your health care provider. The amount of some medicines that you take may need to be changed. Do not take any new medicines unless approved by your health care provider. Many medicines can makekidney damage worse. Do not take any vitamin and mineral supplements unless approved by your health care provider. Many nutritional supplements can make kidney damage worse. Lifestyle Do not use any products that contain nicotine or tobacco, such as cigarettes, e- cigarettes, and chewing tobacco. If you need help quitting, ask your health care provider. If you drink alcohol: ?Limit how much you use to: ?0 1 drink a day for women who are not . ?0 2 drinks a day for men. ?Know how much alcohol is in your drink. In the [place] one drink equals one 12 oz bottle of beer (355 mL), one 5 oz glass of wine (148 mL), or one 1 oz glass of hard liquor (44 mL). Maintain a healthy weight. If you need help, ask your health care provider. General instructions Follow instructions from your health care provider about eating or drinking restrictions, includingany prescribed diet. Track your blood pressure at home. Report changes in your blood pressure as told. If you are being treated for diabetes, track your blood glucose levels as told. Start or continue an exercise plan. Exercise at least 30 minutes a day, 5 days a week. Keep your immunizations up to date as told. Keep all follow-up visits. This is important. Where to find more information [employer]: www.aakp.org National Kidney Foundation: www.kidney.org [employer]: www.akfinc.org Life Options: www.lifeoptions.org Kidney School: www.kidneyschool.org Contact a health care provider if: Your symptoms get worse. You develop new symptoms. Get help right away if: You develop symptoms of ESRD. These include: ?Headaches. ?Numbness in your hands or feet. ?Easy bruising. ?Frequent hiccups. ?Chest pain. ?Shortness of breath. ?Lack of menstrual periods, in women. You have a fever. You are producing less urine than usual. You have pain or bleeding when you urinate or when you have a bowel movement. These symptoms may represent a serious problem that is an emergency. Do not wait to see if the symptoms will go away. Get medical help right away. Call your local emergency services (911 in the [place] Do not drive yourself to the hospital. Summary Chronic kidney disease (CKD) occurs when the kidneys become damaged slowly over a long period of time. The most common causes of this condition are diabetes and high blood pressure (hypertension). There is no cure for most cases of CKD, but treatment usually relieves symptoms and prevents or slows the worsening of the disease. Treatment may include a combination of lifestyle changes, medicines, and dialysis. This information is not intended to replace advice given to you by your health care provider. Make sure you discuss any questions you have with your health care provider. Document Revised: 10/08/2020 Document Reviewed: 10/08/2020 [email or web address] Patient Education 2022 [employer]. Follow Up Care 08/06/2022 08:23:10 With:Dilma BENAVIDEZ MD, FAM Address: When: only if needed Comments:labs to be called and decide further management [facility] [place] 01-15-2023 Hospital Discharge instructions Patient Education 08/01/2022 19:45:32 Syphilis Syphilis Syphilis is an infection that can spread through sexual contact. The infection can cause serious complications, so it is important to get treatment right away. There are four stages of syphilis: Primary stage. During this stage sores may form where the disease entered your body. Secondary stage. During this stage skin rashes and lesions will form. Latent stage. During this stage there are no symptoms, but the infection may still be contagious. Tertiary stage. This stage happens 10 30 years after the infection starts. During this stage, the disease damages organs and can lead to . Most people do not develop this stage of syphilis. What are the causes? This condition is caused by bacteria called Treponema pallidum. The condition can spread during sexual activity, such as during oral, anal, or vaginal sex. It can also be spread from mother to fetus during . What increases the risk? You are more likely to develop this condition if: You do not use a condom. You have or had another sexually transmitted infection (STI). You have multiple sex partners. You use illegal drugs through an IV. What are the signs or symptoms? Symptoms of this condition depend on the stage of the disease. Primary stage Painless sores (chancres) in and around the genital organs, mouth, or hands. The sores are usually firm and round. Secondary stage A rash or sores. The rash usually does not itch. A fever. A headache. A sore throat. Swollen lymph nodes. New sores in the mouth or on the genitals. A feeling of being ill. Pain in the joints. Patchy hair loss. Weight loss. Fatigue. Latent stage There are no symptoms during this stage. Tertiary stage Dementia. Personality and mood changes. Difficulty walking and coordinating movements. Muscle weakness or paralysis. Problems with coordination. Heart failure. Trouble breathing. Fainting. Soft, rubbery growths on the skin, bones, or liver (gummas). Sudden lightning pains, numbness, or tingling. Vision changes. Hearing changes. Trouble controlling your urine and bowel movements. How is this diagnosed? This condition is diagnosed with: A physical exam. Blood tests. Tests of the fluid (drainage) from a sore or rash. Tests of the fluid around the spine (lumbar puncture). These tests are done to check for an infection in the brain or nervous system. Imaging tests. These may be done to check for damage to the heart, aorta, or brain if the conditionis in the tertiary stage. Tests may include: ?An X-ray. ?A CT scan. ?An MRI. ?An echocardiogram. This test takes a picture of the heart. ?An ultrasound. How is this treated? This condition can be cured with antibiotic medicine. During the first day of treatment, the medicine may cause you to experience fever, chills, headache, nausea, or aching all over your body. This is normal and should go away within 24 hours. Follow these instructions at home: Medicines Take qzhf-cio-idzhiqe and prescription medicines only as told by your health care provider. Take your antibiotic medicine as told by your health care provider. Do not stop taking the antibiotic even if you start to feel better. Incomplete treatment will put you at risk for continued infection and could be life threatening. General instructions Do not have sex until your treatment is completed, or as directed by your health care provider. Tell your recent sexual partners that you were diagnosed with syphilis. It is important that they get treatment, even if they do not have symptoms. Keep all follow-up visits as told by your health care provider. This is important. How is this prevented? Use latex condoms correctly whenever you have sex. Before you have sex, ask your partner if he or she has been tested for STIs. Ask about the test results. Avoid having multiple sexual partners. Contact a health care provider if: You continue to have any of the following symptoms 24 hours after beginning treatment: ?Fever. ?Chills. ?Headache. ?Nausea. ?Aching all over your body. Your symptoms do not improve, even with treatment. Get help right away if: You have severe chest pain. You have trouble walking or coordinating movements. You are confused. You lose vision or hearing. You have numbness in your arms or legs. You have a seizure. You faint. You have a severe headache that does not go away with medicine. Summary Syphilis is an infection that can spread through sexual contact. This condition can cause serious complications, so it is best to get treatment right away. The condition can be cured with antibiotic medicine. This condition can also be spread from mother to fetus during . Take your antibiotic medicine as told by your health care provider. Tell your recent sexual partners that you were diagnosed with syphilis. It is important that they get treatment, even if they do not have symptoms. This information is not intended to replace advice given to you by your health care provider. Make sure you discuss any questions you have with your health care provider. Document Released: 04/24/2014 Document Revised: 01/15/2020 Document Reviewed: 08/30/2017 [email or web address] Patient Education 2020 [employer]. Follow Up Care 07/06/2022 18:14:02 With:BETO DODSON, NAVARRO Patel Address: When: only if needed [facility] [place] 01-06-2023 Hospital Discharge instructions Patient Education 07/23/2022 10:07:47 Cellulitis, Adult Cellulitis, Adult Cellulitis is a skin infection. The infected area is usually warm, red, swollen, and tender. This condition occurs most often in the arms and lower legs. The infection can travel to the muscles, blood, and underlying tissue and become serious. It is very important to get treated for this condition. What are the causes? Cellulitis is caused by bacteria. The bacteria enter through a break in the skin, such as a cut, burn, insect bite, open sore, or crack. What increases the risk? This condition is more likely to occur in people who: Have a weak body defense system (immune system). Have open wounds on the skin, such as cuts, jimenez, bites, and scrapes. Bacteria can enter the body through these open wounds. Are older than 60 years of age. Have diabetes. Have a type of long-lasting (chronic) liver disease (cirrhosis) or kidney disease. Are obese. Have a skin condition such as: ?Itchy rash (eczema). ?Slow movement of blood in the veins (venous stasis). ?Fluid buildup below the skin (edema). Have had radiation therapy. Use IV drugs. What are the signs or symptoms? Symptoms of this condition include: Redness, streaking, or spotting on the skin. Swollen area of the skin. Tenderness or pain when an area of the skin is touched. Warm skin. A fever. Chills. Blisters. How is this diagnosed? This condition is diagnosed based on a medical history and physical exam. You may also have tests, including: Blood tests. Imaging tests. How is this treated? Treatment for this condition may include: Medicines, such as antibiotic medicines or medicines to treat allergies (antihistamines). Supportive care, such as rest and application of cold or warm cloths (compresses) to the skin. Hospital care, if the condition is severe. The infection usually starts to get better within 1 2 days of treatment. Follow these instructions at home: Medicines Take hkiy-zzy-ldofkmz and prescription medicines only as told by your health care provider. If you were prescribed an antibiotic medicine, take it as told by your health care provider. Do notstop taking the antibiotic even if you start to feel better. General instructions Drink enough fluid to keep your urine pale yellow. Do not touch or rub the infected area. Raise (elevate) the infected area above the level of your heart while you are sitting or lying down. Apply warm or cold compresses to the affected area as told by your health care provider. Keep all follow-up visits as told by your health care provider. This is important. These visits letyour health care provider make sure a more serious infection is not developing. Contact a health care provider if: You have a fever. Your symptoms do not begin to improve within 1 2 days of starting treatment. Your bone or joint underneath the infected area becomes painful after the skin has healed. Your infection returns in the same area or another area. You notice a swollen bump in the infected area. You develop new symptoms. You have a general ill feeling (malaise) with muscle aches and pains. Get help right away if: Your symptoms get worse. You feel very sleepy. You develop vomiting or diarrhea that persists. You notice red streaks coming from the infected area. Your red area gets larger or turns dark in color. These symptoms may represent a serious problem that is an emergency. Do not wait to see if the symptoms will go away. Get medical help right away. Call your local emergency services (911 in the [place] Do not drive yourself to the hospital. Summary Cellulitis is a skin infection. This condition occurs most often in the arms and lower legs. Treatment for this condition may include medicines, such as antibiotic medicines or antihistamines. Take pacq-nst-rkkfkha and prescription medicines only as told by your health care provider. If you were prescribed an antibiotic medicine, do not stop taking the antibiotic even if you start to feel better. Contact a health care provider if your symptoms do not begin to improve within 1 2 days of startingtreatment or your symptoms get worse. Keep all follow-up visits as told by your health care provider. This is important. These visits letyour health care provider make sure that a more serious infection is not developing. This information is not intended to replace advice given to you by your health care provider. Make sure you discuss any questions you have with your health care provider. Document Released: 04/13/2006 Document Revised: 11/23/2018 Document Reviewed: 11/23/2018 [email or web address] Patient Education 2020 [employer]. Follow Up Care 07/14/2022 16:28:23 With:Dilma BENAVIDEZ MD, FAM Address: When: only if needed Comments:labs to be called [facility] [place] 12-18-2022 Hospital Discharge instructions Patient Education 07/04/2022 13:44:46 Cellulitis, Adult Cellulitis, Adult Cellulitis is a skin infection. The infected area is usually warm, red, swollen, and tender. This condition occurs most often in the arms and lower legs. The infection can travel to the muscles, blood, and underlying tissue and become serious. It is very important to get treated for this condition. What are the causes? Cellulitis is caused by bacteria. The bacteria enter through a break in the skin, such as a cut, burn, insect bite, open sore, or crack. What increases the risk? This condition is more likely to occur in people who: Have a weak body defense system (immune system). Have open wounds on the skin, such as cuts, jimenez, bites, and scrapes. Bacteria can enter the body through these open wounds. Are older than 60 years of age. Have diabetes. Have a type of long-lasting (chronic) liver disease (cirrhosis) or kidney disease. Are obese. Have a skin condition such as: ?Itchy rash (eczema). ?Slow movement of blood in the veins (venous stasis). ?Fluid buildup below the skin (edema). Have had radiation therapy. Use IV drugs. What are the signs or symptoms? Symptoms of this condition include: Redness, streaking, or spotting on the skin. Swollen area of the skin. Tenderness or pain when an area of the skin is touched. Warm skin. A fever. Chills. Blisters. How is this diagnosed? This condition is diagnosed based on a medical history and physical exam. You may also have tests, including: Blood tests. Imaging tests. How is this treated? Treatment for this condition may include: Medicines, such as antibiotic medicines or medicines to treat allergies (antihistamines). Supportive care, such as rest and application of cold or warm cloths (compresses) to the skin. Hospital care, if the condition is severe. The infection usually starts to get better within 1 2 days of treatment. Follow these instructions at home: Medicines Take wzko-vbf-kdntmxb and prescription medicines only as told by your health care provider. If you were prescribed an antibiotic medicine, take it as told by your health care provider. Do notstop taking the antibiotic even if you start to feel better. General instructions Drink enough fluid to keep your urine pale yellow. Do not touch or rub the infected area. Raise (elevate) the infected area above the level of your heart while you are sitting or lying down. Apply warm or cold compresses to the affected area as told by your health care provider. Keep all follow-up visits as told by your health care provider. This is important. These visits letyour health care provider make sure a more serious infection is not developing. Contact a health care provider if: You have a fever. Your symptoms do not begin to improve within 1 2 days of starting treatment. Your bone or joint underneath the infected area becomes painful after the skin has healed. Your infection returns in the same area or another area. You notice a swollen bump in the infected area. You develop new symptoms. You have a general ill feeling (malaise) with muscle aches and pains. Get help right away if: Your symptoms get worse. You feel very sleepy. You develop vomiting or diarrhea that persists. You notice red streaks coming from the infected area. Your red area gets larger or turns dark in color. These symptoms may represent a serious problem that is an emergency. Do not wait to see if the symptoms will go away. Get medical help right away. Call your local emergency services (911 in the [place] Do not drive yourself to the hospital. Summary Cellulitis is a skin infection. This condition occurs most often in the arms and lower legs. Treatment for this condition may include medicines, such as antibiotic medicines or antihistamines. Take cnle-ikz-xrkoqcm and prescription medicines only as told by your health care provider. If you were prescribed an antibiotic medicine, do not stop taking the antibiotic even if you start to feel better. Contact a health care provider if your symptoms do not begin to improve within 1 2 days of startingtreatment or your symptoms get worse. Keep all follow-up visits as told by your health care provider. This is important. These visits letyour health care provider make sure that a more serious infection is not developing. This information is not intended to replace advice given to you by your health care provider. Make sure you discuss any questions you have with your health care provider. Document Released: 04/13/2006 Document Revised: 11/23/2018 Document Reviewed: 11/23/2018 [email or web address] Patient Education 2020 [employer]. Follow Up Care 06/28/2022 16:13:20 With:Dilma BENAVIDEZ MD, FAM Address: When:6 weeks Comments:labs will be called [facility] [place] 12-11-2022 NoteMicrobiology PROCEDURE: Blood Culture Charcoal [R1] SOURCE: Blood BODY SITE: Arm R COLLECTED DATE/TIME: 06/20/2022 12:35 EST RECEIVED DATE/TIME: 06/20/2022 12:42 EST START DATE/TIME: 06/20/2022 12:42 EST FREE TEXT SOURCE: Herb LIM, Vazquez Souza. Herb LIM, Vazquez Souza. FINAL REPORTS Final Report [] Verified Date/Time: 06/27/2022 18:00 EST No growth at 7 days. Performing Locations R1: This test was performed at: [facility], [address] [place] [address], [id number] , , [facility]krBar[facility] CenterComment on above:Performed By: #### [id number] #### [facility] [address] [place] [id number] + Plan note Future Appointments Appointment Date:08/17/2022 05:20:00 PM Scheduled Provider:Dilma BENAVIDEZ MD Location:[facility] Appointment Type: Open [facility] Evaluation + Plan note Future Appointments Appointment Date:08/17/2022 05:20:00 PM Scheduled Provider:[facility]il[facility]IDEZ [facility]: [facility] Diagnostic Tests Pending * [facility] Future App[facility]ments Appointment Date:08/17/2022 05:20:00 PM Scheduled Provider:Dilma BENAVIDEZ MD [facility] Type: Open Diagnostic Tests Pending * RPR with Conf Rfx 07/23/22 * HIV Screen 4th Generation wRfx 07/23/22 * Hepatic Function Panel 07/23/22 * Lab Miscellaneous-LC 07/23/22 [facility] Future Appointments Appointment Date:02/25/2023 03:00:00 PM Scheduled Provider: Location:[facility] Appointment Type:Surgery [facility] General Surgery [place] Evaluation + Plan note Future Appointments Appointment Date:09/05/2023 11:00:00 AM Scheduled Provider:Khurram MELOGZA MD Location:[facility] Future Appointments Appointment Date:11/21/2023 11:00:00 AM Scheduled Provider:Khurram MELGOZA MD Location:[facility] App[facility]ment [facility] note Future Appointments Appointment Date:01/09/2024 02:15:00 PM Scheduled Provider:Khurram MELGOZA MD Location:[facility] Appointment Type:URO Office Visit [facility] evaluation note* Diagnosis Chronic kidney disease (CKD) stage G3a/A1, moderately decreased glomerular filtration rate (GFR) between 45-59 mL/min/1.73 square meter and albuminuria creatinine ratio less than 30 mg/g (HCC) documented in this encounter [facility] note* Diagnosis Other atopic dermatitis [facility] N[facility] No data available for this [facility] Dis[facility] instructions No data available for this section [facility] No data available for this section [facility] [place] Reason for referral (narrative) Referred by: Dilma BENAVIDEZ MD [facility] Present Illness * Tram Hankins - 09/03/2020 3:30 PM [facility] Date: 09/03/2020 Patient Name: Gabriela Fuentes : 1970 Pt No Showed Appt Tram Hankins Date: 09/03/2020 documented in this encounter Summary Purpose Family History No Family History Records FoundNo Family History Records Found No data available for this section No data available for this section No data available for this section No data available for this section No Family History Records FoundNo Family History Records Found Advance Directives No Advanced Directives Records FoundNo Advanced Directives Records FoundNo Advanced Directives Records FoundNo Advanced Directives Records Found Reason for Referral Specialty Diagnoses / Procedures Referred By Jewel prieto Referred To Contact Radiology Diagnoses Chronic kidney disease (CKD) stage G3a/A1, moderately decreased glomerular filtration rate (GFR) between 45-59 mL/min/1.73 square meter and albuminuria creatinine ratio less than 30 mg/g (HCC) Procedures US RENAL COMPLETE Joanne Altman MD [address] [place], [place] [id number] Referral ID Status Reason Start Date Expiration Date V isits Requested Visits Authorized [id number] Not Required - RTA 12/29/2022 12/29/2023 1 1 Additional Source Comments (unrecognized sect ion and content) No Status Records FoundNo Status Records FoundNo Status Records FoundNo Status Records Found INFORMATION SOURCE (unrecogn ized section and content) DATE CREATED AUTHOR [facility]20[facility] DATE CREATED AUTHOR AUTHOR'S ORGANIZ ATION 01/26/2023 Erika tony DATE CREATED AUTHOR AUTHOR'S ORGANIZ ATION 05/06/2024 [place] [facility] DATE CREATED AUTHOR AUTHOR'S ORGANIZ ATION 05/12/2024 [facility] EPIC Patient Care team informatio n (unrecognized section and content) Head Of Stock Relationship Specialty Start Date [place] [address] PCP - General Nurse Practitioner 08/27/20 Head Of Stock Relationship Specialty Start Date End [place] [address] PCP - General Nurse Practitioner 08/27/20 Reason for Visit (unrecogniz ed section and content) Specialty Diagnoses / Procedures Referred By Contac t Referred To Contact Radiology Diagnoses Chronic kidney disease (CKD) stage G3a/A1, moderately decreased glomerular filtration rate (GFR) between 45-59 mL/min/1.73 square meter and albuminuria creatinine ratio less than 30 mg/g (HCC) Procedures US RENAL COMPLETE Joanne Altman MD [address] [place] [address] Referral ID Status Reason Start Date Expiration Date V isits Requested Visits Authorized [id number] Not Required - RTA 12/29/2022 12/29/2023 1 1 FOR RECORDS PERTAINING TO PATIENTS WHO ARE OR HAVE BEEN ENROLLED IN A CHEMICAL DEPENDENCY/SUBSTANCEABUSE PROGRAM, SOME INFORMATION MAY BE OMITTED. This clinical summary was aggregated from multiple sources. Caution should be exercised in using it in the provision of clinical care. This summary normalizes information from multiple sources, and as a consequence, information in this document may materially change the coding, format and clinical context of patient data. In addition, data may be omitted in some cases. CLINICAL DECISIONS SHOULD BE BASED ON THE PRIMARY CLINICAL RECORDS. [employer] [facility]. provides no warranty or guarantee of the accuracy or completeness of information in this document.
[2024-07-05] MEDS: LACTATED RINGER'S SOLUTION 1,000 ML 50 ML IV ×2 (11:12→12:33)
[2024-07-05] MEDS: FAMOTIDINE/PF 20 MG/2 ML VIAL IV (11:42)
[2024-07-05] MEDS: CIPROFLOXACIN 400 MG/200 ML D5W PREMIX 200 MG IV (12:11)
[2024-07-05] MEDS: BACITRACIN OINTMENT 28.4 GM TUBE 1 APPLIC TOPICAL (13:28)
[2024-07-05] MEDS: MINERAL OIL LIGHT STERILE 10 ML VIAL TOPICAL (13:29)
--- NOTE | 2024-07-05 13:36 | P.URON_ITS ---
Urology Surgery Operative Note Operative Note Procedure Date: 07/05/24 Time Out Performed: yes Pre-op Diagnosis: Phimosis Post-op Diagnosis: same as pre-op Procedures performed: 1. Circumcision. Anesthesia: General-LMA Primary Surgeon: Khurram Melgoza Complications: None Estimated blood loss (mL): 15 Findings: Very thick indurated and friable foreskin tissue. Specimens: Foreskin Indications for Procedures: This gentleman has phimosis and he is getting splitting and cracking of the foreskin with erections. He is strongly desirous of circumcision. He has signed an informed consent after risks were explained. Detailed description of Procedure: The patient was brought to the operating room and placed on the operating room table in the supine position. SCDs were placed on his lower extremities and turned on and functioning during the entire case. Timeout was done by all parties in the room. We all agreed upon the patient's identification and the planned procedures for this patient. General anesthesia was then administered via LMA. His genitalia were then sterilely prepped and draped in the usual fashion. I then marked a line on the external surface of the foreskin over the coronal sulcus. A circumscribing incision was made with a 15 blade scalpel over this line. The foreskin was then retracted over the shaft and a line 5 mm proximal to the coronal sulcus on the mucosal surface was then drawn. A similar circumscribing incision was then made over this line. This sleeve of tissue was extremely indurated, thick, friable and adhered. I sharply dissected this tissue circumferentially and intermittent bleeding had to be stopped with the needle tip Bovie cautery. The tissue was then transected and then amputated and sent for permanent sections. Once hemostasis was obtained the edges of the foreskin were then joined together with 4-0 Vicryl dipped in mineral oil in a running fashion. There was an excellent repair. Bacitracin ointment was applied over the suture line. A Vaseline gauze was wrapped on the suture line and then a plain gauze was wrapped. Coban was then wrapped over this. He was then [facility] and wheeled to PACU in stable condition.
--- NOTE | 2024-07-05 13:56 | PC.NURSE ---
Patient urinated all over on his way to PACU. Cleaned his up and changed bedding and gown.
== END 2024-07-05 14:56 | disposition home or self-care (01) ==
PROVIDERS: PCP Family Medicine; Visit Provider Urology
PROC: (CPT 920; principal; 2024-07-05 11:30)
DX: N47.1 Phimosis (principal); N18.30 Chronic kidney disease, stage 3 unspecified; E66.9 Obesity, unspecified; Z68.30 Body mass index [BMI] 30.0-30.9, adult; L30.9 Dermatitis, unspecified; Z79.899 Other long term (current) drug therapy
CPT/HCPCS: 54161; 36415; 88304; J0744; J1100; J2250; J2405; J2704; J3010